=== PATIENT | male | born 1935 | race Caucasian/White ===

== ENCOUNTER 2017-05-29 06:34 | Observation (INO) | payer MEDICARE ==
[2017-05-29] MEDS ORDERED: Acetaminophen TAB* 325 MG PO ONE (06:55)
[2017-05-29] MEDS ORDERED: Ondansetron INJ* 2 MG/ML VIAL IV ONE (06:55)
[2017-05-29] MEDS ORDERED: Albuterol/Ipratropium NEB.SOL* Albuterol 2.5 MG/Ipratropium 0.5 MG 3 ML INH ONE (06:55)
[2017-05-29] MEDS ORDERED: NS 0.9% 1000 ML* 1,000 ML IV ONE (06:56)
--- NOTE | 2017-05-29 07:36 | ED ---
Sylvia Camarillo Nilda, scribed for Deepa Alexandre MD on 05/29/17 at 0701 . Respiratory - HPI Summary HPI Summary: This patient is an 82 year old M presenting to [facility] with a chief complaint of intermittent chest tightness and productive cough for the past 3 days that worsened today. The patient rates the pain 0/10 in severity. Patient reports nausea and fever. Symptoms aggravated by nothing and alleviated by 2 adult aspirin at 0530. Last BM was yesterday at 1300. - History of Current Complaint Chief Complaint: EDChestPainROMI Stated Complaint: CARDIAC ISSUE Hx Obtained From: Patient Onset/Duration: Sudden Onset, Lasting Days, Still Present Timing: Intermittent Episodes Lasting: Pain Intensity: 0 Character: Cough (Productive) Aggravating Factor(s): Nothing Alleviating Factor(s): OTC Medications - Allergy/Home Medications Allergies/Adverse Reactions: Allergies Allergy/AdvReac Type Severity Reaction Status Date / Time No Known Allergies Allergy Verified 05/29/17 06:52 PMH/Surg Hx/FS Hx/Imm Hx Endocrine/Hematology History: Reports: Hx Diabetes, Hx Anemia - SLIGHT STABLE ANEMIA Cardiovascular History: Reports: Hx Hypertension, 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 Denies: Hx Pacemaker/ICD GI History: Reports: Other GI Disorders - OCCASIONAL INDIGESTION History: Reports: Hx Kidney Stones - HX OF , Hx Renal Disease - ELAVATED CREATNINE AND BUN, Other Problems/Disorders - STATED SLIGHTLY ELEVATED BUT STABLE BUN AND CREATININE Musculoskeletal History: Reports: Other Musculoskeletal History - LEFT FOOT OSTEOMEYLITIS Sensory History: Reports: Hx Cataracts - HX OF, Hx Contacts or Glasses - GLASSES READING AND DRIVING Denies: Hx Hearing Aid Opthamlomology History: Reports: Hx Cataracts - HX OF, Hx Contacts or Glasses - GLASSES READING AND DRIVING Psychiatric History: Denies: Hx Panic Disorder - Cancer History Cancer Type, Location and Year: PROSTATE 2007 Hx Chemotherapy: - RADITION 35 [place] Hx Radiation Therapy: Yes - DONE - Surgical History Surgery Procedure, Year, and Place: YOUNG CHILD BOTH EYES. 2006 RT & LEFT FOOT BONE CHIPS, ABDIAZIZ. 2007 & 2011 CATARACT EXTRACTION BOTH EYES. 02/2012 LEFT FOOT OSTECTOMY Hx Anesthesia Reactions: No Infectious Disease History: No Infectious Disease History: Denies: Traveled Outside the [place] in Last 30 Days - Social History Lives: With Family Alcohol Use: Rare Alcohol Amount: 2 BEER/1 WINE DAILY Substance Use Type: Reports: None Smoking Status (MU): Former Smoker Type: Cigarettes Amount Used/How Often: 2 1/2 ppd Have You Smoked in the Last Year: No Review of Systems Positive: Fever Positive: Chest Pain - tightness Positive: Cough Positive: Nausea All Other Systems Reviewed And Are Negative: Yes Physical Exam - Summary Physical Exam Summary: VITAL SIGNS: Reviewed. GENERAL: Patient is a well-developed and nourished male who is lying comfortable in the stretcher. Patient is not in any acute respiratory distress. HEAD AND FACE: No signs of trauma. No ecchymosis, hematomas or skull depressions. No sinus tenderness. EYES: PERRLA, EOMI x 2, No injected conjunctiva, no nystagmus. EARS: Hearing grossly intact. Ear canals and tympanic membranes are within normal limits. MOUTH: Oropharynx within normal limits. NECK: Supple, trachea is midline, no adenopathy, no JVD, no carotid bruit, no c- spine tenderness, neck with full ROM. CHEST: Symmetric, no tenderness at palpation LUNGS: Clear to auscultation bilaterally. No wheezing or crackles. Decreased breath sounds bilat CVS: Regular rate and rhythm, S1 and S2 present, no murmurs or gallops appreciated. ABDOMEN: Soft, non-tender. (+) distention. No rebound no guarding, and no masses palpated. Bowel sounds are hyperactive. EXTREMITIES: FROM in all major joints, no edema, no cyanosis or clubbing. NEURO: Alert and oriented x 3. No acute neurological deficits. Speech is normal and follows commands. SKIN: Dry and warm Triage Information Reviewed: Yes Vital Signs On Initial Exam: Initial Vitals Temp Pulse Resp BP Pulse Ox 99.3 F 106 16 135/67 95 05/29/17 06:40 05/29/17 06:40 05/29/17 06:40 05/29/17 06:40 05/29/17 06:40 Vital Signs Reviewed: Yes Diagnostics - Vital Signs Vital Signs Temp Pulse Resp BP Pulse Ox 05/29/17 06:44 110 18 94 05/29/17 06:43 135/67 05/29/17 06:40 99.3 F 106 16 135/67 95 - Laboratory Lab Statement: Any lab studies that have been ordered have been reviewed, and results considered in the medical decision making process. - EKG 0654 Cardiac Rate: Tachycardia EKG Rhythm: Sinus Tachycardia - [address] Segment: Non-Specific - in inferior leads EKG Interpretation: 1st degree AV block Disposition - Course Assessment/Plan: 82 y/o Hx DM and HTN came here with difficulty breathing, left sided chest discomfort intermittently. Exam gilmore he has decreased breath sounds bilat and left BKA. Pt will be s/o to Dr. Parisi, pending dispo, awaiting cxr. - Diagnoses Provider Diagnoses: Chest pain Discharge - Sign-Out/Discharge Documenting (check all that apply): Sign-Out Patient - Pt will be s/o to Dr. Parisi, pending dispo, awaiting cxr. Signing out patient TO: Fab Parisi - Pt will be s/o to Dr. Parisi, pending dispo, awaiting cxr. - Discharge Plan Referrals: Pooja Kinney MD [Primary Care Provider] - The documentation as recorded by the Sylvia crockett Nilda accurately reflects the service I personally performed and the decisions made by , Deepa Alexandre MD.
[2017-05-29 07:47] LABS: ABS Basophils 0 10^3/ul (0-0.2); ABS Eosinophils 0 10^3/ul (0-0.6); ABS Lymphocytes 0.3 10^3/ul (1.0-4.8); ABS Monocytes 0.6 10^3/ul (0-0.8); ABS Neutrophils 5.7 10^3/ul (1.5-7.7); ABS Nucleated RBC 0 10^3/ul; Eosinophil % 0.2 % (0-6); Hematocrit 32 % (42-52); Hemoglobin 10.9 g/dl (14.0-18.0); Lymphocyte % 4.2 % (25-47); Mean Corpuscular HGB Conc 34 g/dl (31-36); Mean Corpuscular Hemoglobin 32 pg (27-31); Mean Corpuscular Volume 94 fL (80-94); Mean Platelet Volume 6.1 um3 (7.4-10.4); Nucleated Red Blood Cells % 0.1; Platelet Count 362 10^3/ul (150-450); Red Blood Count 3.44 10^6/ul (4.0-5.4); Red Cell Distribution Width 13 % (10.5-15); White Blood Count 6.6 10^3/ul (3.5-10.8)
--- NOTE | 2017-05-29 07:47 | RAD ---
HISTORY: Shortness of breath, left-sided chest pressure COMPARISONS: April 10, 2015 VIEWS: 1: frontal portable view of the chest at 7:22 AM FINDINGS: LINES AND TUBES: None. CARDIOMEDIASTINAL SILHOUETTE: The cardiomediastinal silhouette is normal for portable technique. PLEURA: The costophrenic angles are sharp. No pleural abnormalities are noted. LUNG PARENCHYMA: There is hyperinflation. ABDOMEN: The upper abdomen is clear. There is no subphrenic gas. BONES AND SOFT TISSUES: No bone or soft tissue abnormalities are noted. IMPRESSION: NO ACTIVE CARDIOPULMONARY DISEASE.
[2017-05-29 07:56] LABS: INR 1.08 (0.77-1.02)
[2017-05-29 08:03] LABS: Urine Appearance Cloudy; Urine Blood Negative (Negative); Urine Color Yellow; Urine Ketones 1+ (Negative); Urine Protein Negative (Negative); Urine Specific Gravity 1.019 (1.010-1.030); Urine Urobilinogen Negative (Negative)
[2017-05-29 08:04] LABS: EGFR Non-African American 43.4 (>60)
[2017-05-29] MEDS ORDERED: Iodixanol* (CONTRAST) 320 MG/ML 100 ML SDV IV ONE (08:15)
--- NOTE | 2017-05-29 08:52 | RAD ---
HISTORY: Elevated d-dimer, left-sided chest pain COMPARISONS: September 02, 2014 TECHNIQUE: Multiple contiguous axial CT scans of the chest were obtained after the administration of nonionic intravenous contrast, timed to the pulmonary arterial phase of contrast enhancement.. Coronal and sagittal multiplanar reformations are also submitted for review. FINDINGS: NECK AND THYROID: The lower neck and thyroid are unremarkable. CHEST WALL: There is no lower cervical, axillary, or supraclavicular lymphadenopathy by size criteria. HEART AND PERICARDIUM: Coronary and valvular cardiac calcifications are noted. AORTA AND PULMONARY VASCULATURE: There is no pulmonary arterial filling defect to suggest pulmonary embolism. There is no linear filling defect within the aorta to suggest aortic dissection. There is atherosclerosis of the thoracic aorta. MEDIASTINUM: There is no mediastinal lymphadenopathy by size criteria. KACY: There is no hilar lymphadenopathy by size criteria. AIRWAY AND ESOPHAGUS: The airway is unremarkable, without endobronchial filling defect. The esophagus is grossly normal. LUNG PARENCHYMA: There is minimal dependent atelectasis. PLEURA: There is trace right pleural effusion. UPPER ABDOMEN: The upper abdomen is unremarkable. BONES AND SOFT TISSUES: Degenerative changes are noted of the spine. OTHER: None. IMPRESSION: 1. NO PULMONARY ARTERIAL FILLING DEFECT TO SUGGEST PULMONARY EMBOLISM. 2. ATHEROSCLEROSIS. 3. TRACE RIGHT PLEURAL EFFUSION.
[2017-05-29] MEDS ORDERED: Nitroglycerin TAB 0.4 MG* 0.4 MG TAB SL ONE (09:12)
[2017-05-29] MEDS ORDERED: Dextrose 50% Syringe 50 ML* 25 GM/50 ML SYRINGE IV PUSH PRN (10:16)
[2017-05-29] MEDS ORDERED: Al Hydrox/Mg Hydrox/Simet LIQ* 30 ML UDC PO PRN (10:19)
[2017-05-29] MEDS ORDERED: Ondansetron INJ* 2 MG/ML VIAL IV PRN (10:19)
[2017-05-29] MEDS ORDERED: NS 0.9% 1000 ML* 1,000 ML IV SCH (10:30)
[2017-05-29] MEDS: Insulin LISPRO* 1 UNITS UNIT SUBCUT SCH ×3 (12:30→20:20)
[2017-05-29] MEDS: Metoprolol Tartrate TAB* 50 mg PO SCH ×2 (12:30→20:20)
--- NOTE | 2017-05-29 13:14 | HP ---
CC: Dr. Kinney * HISTORY AND PHYSICAL: DATE OF ADMISSION: 05/29/17 PRIMARY CARE PROVIDER: Dr. Kinney. CHIEF COMPLAINT: Chest pressure. HISTORY OF PRESENT ILLNESS: Mr. Wells is an 82-year-old male with history of diabetes, diabetic retinopathy and Charcot foot deformation bilaterally, status post left [id number] amputation in 2016, who presented to the hospital complaining of nausea that started 3 days ago with subsequent sensation of fullness in the left side of his chest and chest pressure. The patient also stated that occasionally he would spit up "phlegm," but denies cough. He denies muscle aches or fevers. He denies shortness of breath. Currently, he still has a sensation of fullness in the left side of his chest. He was somewhat nauseated when he came into the emergency department and that was treated with Zofran with good results. His CT angiogram of the chest was unremarkable apart from atelectatic area. He is going to be placed on observation with a diagnosis of chest pain. PAST MEDICAL HISTORY: 1. History of ascending aortic aneurysm. 2. History of left diabetic foot ulcer with Charcot foot deformation and osteomyelitis, status post left BKA in 2016. 3. Cardiomyopathy with last EF documented at 60%. 4. History of chronic kidney disease stage 3 due to diabetes. 5. History of diabetic neuropathy, retinopathy, and nephropathy. 6. Diabetes type 2. 7. Gastroesophageal reflux disease. 8. Hypertension. 9. Prostate cancer, treated with radiation. 10. History of eye surgery at the age of 35 years old. 11. History of multiple left foot surgeries in 2016 with left BKA. 12. Bilateral cataract surgery bilaterally. MEDICATIONS: Include, 1. Glipizide 2.5 mg daily. 2. Amlodipine 2.5 mg daily. 3. Hytrin or terazosin 5 mg at bedtime. 4. Multivitamin one tablet daily. 5. Metoprolol tartrate 50 mg b.i.d. 6. Vitamin C 1000 mg daily. ALLERGIES: No known drug allergies. FAMILY HISTORY: Positive for father with lung cancer, mother who at age of 35 secondary to brain aneurysm. SOCIAL HISTORY: The patient quit smoking in the with a history of 70-pack - year smoking. He drinks an occasional glass of wine with dinner. He lives with his who would be his surrogate and in case his was unable to do that, his daughter will take over. REVIEW OF SYSTEMS: Please see history of present illness. In addition to the above mentioned, the patient stated that he had several episodes of nausea couple of weeks prior that resolved spontaneously. Since his nausea episode 3 days ago, he stated that he did not really vomit, but he continued "spitting phlegm." He has not been eating well due to that. His bowels have been moving regularly and he denies any abdominal pain. All the remaining 12 systems were reviewed with the patient and were otherwise negative. PHYSICAL EXAMINATION GENERAL: The patient is a very pleasant 82-year-old male who is in no acute distress. Alert, awake, and oriented x3. VITAL SIGNS: Blood pressure of 101/70, heart rate of 89 and regular, respiratory rate 11, oxygen saturation 91% on room air, temperature of 99.3. HEENT: Head is atraumatic, normocephalic. Eyes: Pupils equal and reactive to light and accommodation. Oropharynx clear. Mucosa moist. NECK: Supple. No JVD. No bruits bilaterally. RESPIRATORY: Faint crackles at bilateral bases, otherwise clear. CARDIOVASCULAR: Regular rate and rhythm. No murmur. ABDOMEN: Soft, nontender. Bowel sounds present in all 4 quadrants. EXTREMITIES: There is no edema. Pulses are +2 bilaterally. There is no clubbing or cyanosis. The patient is status post left BKA with the prosthesis in place at this point. The patient was not interested in taking the prosthesis off during my evaluation, he stated that he has "a small sore" on the tip of his stump. NEUROLOGIC: Speech clear. Cranial nerves II through XII grossly intact. Motor strength is 5/5 bilaterally. SKIN: No ecchymotic areas or rashes noted. DIAGNOSTIC STUDIES/LAB DATA: White blood cell count of 6.6, hemoglobin 10.9, hematocrit of 32, and platelets of 362. The patient's anemia is chronic. Sodium is 135, potassium 4.2, chloride 105, carbon dioxide 20, BUN 22, creatinine 1.55 which is the patient's baseline. Liver function tests were unremarkable. C- reactive protein of 75.4. Troponin of 0.03. Urinalysis grossly unremarkable apart from trace ketones. CT angiogram of the chest obtained today, impression: "No pulmonary artery filling defect to suggest pulmonary embolism. Atherosclerosis. Trace right pleural effusion." The patient's EKG shows sinus tachycardia with heart rate of 101 beats per minute, likely old anteroseptal infarct. Changes slightly progressed from prior. The patient's P-wave also appears to be biphasic especially in V1 to V3. There were no acute ST changes. ASSESSMENT AND PLAN: 1. In regards to the patient's chest pressure, it appears to be related to GI symptoms. The patient may have gastroparesis since he is diabetic with diabetic nephropathy, neuropathy, and retinopathy. Nevertheless, he is also vasculopath and he is going to be observed on telemetry monitored bed with cardiac stress test in the morning. Of note, the patient requested to be placed on regular diet, but he is going to be placed on no caffeine in order to undergo stress test in the morning. We will follow up with troponins throughout his hospital stay. 2. In regards to the patient's diabetic management, the patient is going to be placed on insulin sliding scale. His glipizide is going to be held. 3. In regards to the patient's hypertension, he is going to be continued on metoprolol. 4. The patient appears slightly dehydrated. He already received a liter of intravenous fluid in the emergency department. For the time being, I will continue gentle hydration for another liter and then stop. 5. The patient's code status is full and his surrogate is his and his daughter. 6. For DVT prophylaxis, the patient is going to be placed on heparin subcutaneously. TIME SPENT: Approximately 62 minutes was spent on admission of this patient, more than half that time was spent [id number] with the patient during the interview and physical exam. [id number]/[facility] #: [id number] [facility] SERVIC[facility]ont[facility]errat
[2017-05-29] MEDS: Heparin VIAL(*) 5000 UNITS/ML VIAL (FIVE THOUSAND) SUBCUT SCH ×2 (15:19→21:05)
[2017-05-29] MEDS ORDERED: Terazosin CAP* 5 MG PO SCH (21:00)
[2017-05-30 06:14] LABS: ABS Basophils 0 10^3/ul (0-0.2); ABS Eosinophils 0.1 10^3/ul (0-0.6); ABS Lymphocytes 0.8 10^3/ul (1.0-4.8); ABS Monocytes 0.8 10^3/ul (0-0.8); ABS Neutrophils 4.5 10^3/ul (1.5-7.7); ABS Nucleated RBC 0 10^3/ul; Eosinophil % 1.2 % (0-6); Hematocrit 30 % (42-52); Hemoglobin 10.4 g/dl (14.0-18.0); Lymphocyte % 12.7 % (25-47); Mean Corpuscular HGB Conc 34 g/dl (31-36); Mean Corpuscular Hemoglobin 32 pg (27-31); Mean Corpuscular Volume 94 fL (80-94); Mean Platelet Volume 6.1 um3 (7.4-10.4); Nucleated Red Blood Cells % 0; Platelet Count 342 10^3/ul (150-450); Red Blood Count 3.23 10^6/ul (4.0-5.4); Red Cell Distribution Width 13 % (10.5-15); White Blood Count 6.3 10^3/ul (3.5-10.8)
[2017-05-30] MEDS: Heparin VIAL(*) 5000 UNITS/ML VIAL (FIVE THOUSAND) SUBCUT SCH (06:14)
[2017-05-30 06:29] LABS: EGFR Non-African American 42.7 (>60)
[2017-05-30] MEDS: Insulin LISPRO* 1 UNITS UNIT SUBCUT SCH (08:48)
[2017-05-30] MEDS: Metoprolol Tartrate TAB* 50 mg PO SCH (08:54)
[2017-05-30] MEDS ORDERED: amLODIPine TAB* 5 MG PO SCH (09:00)
[2017-05-30] MEDS ORDERED: Ascorbic Acid TAB* 500 MG PO SCH (09:00)
[2017-05-30 09:26] VITALS: BP 156/73
[2017-05-30] MEDS ORDERED: Regadenoson* 0.4 MG/5 ML SYRINGE ONE (10:07)
--- NOTE | 2017-05-30 11:29 | RAD ---
HISTORY: Chest pain, diabetes, hypertension COMPARISONS: May 06, 2006 TECHNIQUE: A 1 day stress/rest myocardial perfusion study was performed, with pharmacologic stress. The stress portion was monitored by Dr. Laureano. Gated SPECT imaging was performed, without CT-based attenuation correction secondary to patient physical limitation DOSE: Stress: Technetium 99m tetrofosmin, 25.2 millicuries, injected at 10:20 AM on May 30, 2017 Rest: Technetium 99m tetrofosmin, 10.3 millicuries, injected at 6:45 AM on May 30, 2017 Pharmacologic agent: Lexiscan FINDINGS: CARDIAC MONITORING: No ST changes with stress EF: 51% TID: 0.8 MOTION: Normal motion, with normal wall thickening. PERFUSION: On the polar maps, there is a small focus of reversible perfusion along the lateral wall towards the apex. OTHER: None IMPRESSION: SMALL FOCUS OF REVERSIBLE DIFFUSION ALONG THE LATERAL WALL TOWARDS THE APEX WHICH MAY REFLECT A SMALL AREA OF ISCHEMIA. ASSESSMENT: LOW RISK. Based on imaging criteria from ACC/AHA 2002. Guideline Update for the Management of Patient's with Chronic Stable Angina, table 23. Noninvasive Risk Stratification. CPT II Codes: 3570F
[2017-05-30] MEDS ORDERED: glipiZIDE TAB* 5 MG PO ONE (12:25)
--- NOTE | 2017-05-30 23:00 | DS ---
CC: Dr. Kinney DISCHARGE SUMMARY: DATE OF ADMISSION: 05/29/17 DATE OF DISCHARGE: 05/30/17 PRIMARY CARE PROVIDER: Dr. Kinney. DISCHARGE DIAGNOSIS: Chest pain likely GI related. SECONDARY DIAGNOSES: 1. History of diabetes type 2. 2. Status post BKA due to osteomyelitis in the left foot. 3. History of ascending aortic aneurysm. 4. History of cardiomyopathy in the past with EF in 2007 documented at 45%. 5. History of chronic kidney disease, stage 3 due to diabetes. 6. History of diabetic neuropathy, retinopathy, and nephropathy. 7. Gastroesophageal reflux disease. 8. Hypertension. 9. Prostate cancer, treated with radiation. 10. History of multiple left foot surgeries. 11. Bilateral cataract surgery. MEDICATIONS AT DISCHARGE: Include: 1. Glipizide 2.5 mg daily. 2. Amlodipine 2.5 mg daily. 3. Terazosin 5 mg at bedtime. 4. Multivitamin 1 tablet daily. 5. Metoprolol tartrate 50 mg b.i.d. 6. Vitamin C 1000 mg daily. STUDIES PERFORMED DURING THE HOSPITAL STAY WELL LABORATORY DATA: Included: On 05/30/17, sodium of 136, potassium 4.2, chloride 105, carbon dioxide 23, BUN 20, creatinine 1.57. CBC: White blood cell count of 6.3, hemoglobin 10.4, hematocrit 30, and platelets of 342. CT angiogram of the chest obtained on 05/29/17, impression: "No pulmonary arterial filling defect to suggest pulmonary embolism. Atherosclerosis. Trace right pleural effusion." The patient had a chemical cardiac stress test performed on 05/30/17. The nuclear portion showed low risk. It also showed a small focus of reversible diffusion along the lateral wall, which may reflec t the small area of ischemia. The EF was noted to be 51%. Of note, the patient had a similar latera l wall reversible defect noted in 2007 during his stress test. Please also note that in 2006, the josé miguel galvan's EF was noted to be 45 and today it increased to 51. HOSPITALIZATION COURSE: Carlos Wells is an 82-year-old male with history of diabetes with complica tions, status post left BKA due to chronic osteomyelitis of the left foot, who presented to the [facility] with vague complaints of nausea and left-sided chest pressure. The patient's troponins continued to be negative throughout his hospital stay. His discomfort was much improved after he had 2 bowel movements in the hospital. His stress test was basically unchanged from his stress test in 2007, whi ch showed low risk, but small area of potential reversibility in the lateral wall. The patient's EF improved to 51% today from 2007, where it was 45. At discharge, the patient is going to be following up with his primary care provider, Dr. Kinney, and he recommended to do it in approximately 4 to 7 days. PHYSICAL EXAMINATION AT DISCHARGE: Unchanged from admission. [id number]/[facility] #: [id number]
--- NOTE | 2017-05-31 03:23 | DS ---
DISCHARGE SUMMARY: ADDENDUM: Shortly after the patient left the hospital, I was notified by the microbiology lab that the patient's blood cultures that were obtained by the ED physician were positive for MSSA in 2/2 bottles. Please note that during his hospital stay, the patient was afebrile, had no evidence of leukocytosis and did not have any symptoms of ongoing infection. He did say that he had a "sore " on his left lower extremity stump, but he did not wish to take his prosthesis off for me to evaluate it. I called the patient and I discussed with him and requested for him to come back to the hospital for direct admission for further investigation and treatment of MSSA bacteremia. I did discuss with the patient that the possibility of having a heart infection or joint infection in conjunction with his bacteremia is high and that would require further investigation, IV antibiotics and infectious disease consult. The patient stated that he really does not like to be in the hospital, got very upset and stated that he will not come back to the hospital even if it is dangerous to his life to not comply with my request. Subsequently, I spoke with Dr. Guerra who knows Mr. Wells from previous hospital stay in 2015 when the patient was treated for osteomyelitis. Dr. Guerra recommended linezolid treatment and the patient was prescribed linezolid 600 mg b.i.d. for a total of 14 days with 1 refill. I also encouraged Mr. Wells to call Dr. Guerra's office on Friday and Dr. Guerra likely will have an appointment for him within the next several days scheduled. I did urge the patient to come back to the hospital if he develops fevers, feels unwell or has any other new symptoms that are concerning. Please also note that cable splicing technician notified me that the lab already called Dr. Kinney and informed her service about the positive blood cultures. [id number]/[facility] #: [id number] [facility]ITALMontserrat
== END 2017-05-30 14:12 | disposition home or self-care (01) ==
LOC: ED 06:34 → MEDTELE 09:33
PROVIDERS: ADMIT Internal Medicine; ATTEND Internal Medicine
DX: R07.9 Chest pain, unspecified (principal); R50.9 Fever, unspecified; R11.0 Nausea; Z87.891 Personal history of nicotine dependence; E11.9 Type 2 diabetes mellitus without complications; Z89.519 Acquired absence of unspecified leg below knee; I71.2 Thoracic aortic aneurysm, without rupture; Z86.79 Personal history of other diseases of the circulatory system; N18.3 Chronic kidney disease, stage 3 (moderate); I10 Essential (primary) hypertension; C61 Malignant neoplasm of prostate; Z98.49 Cataract extraction status, unspecified eye
CPT/HCPCS: 36415; 71045; 71275; 78452; 80048; 80053; 81003; 83605; 84484; 85025; 85379; 85610; 85730; 86140; 87040; 87077; 87150; 87186; 87205; 87502; 93005; 93017; 94640; 99283; A9270-GY; A9502; G0378; J2405; J2785; Q9967

== ENCOUNTER 2017-12-12 09:48 | Inpatient (IN) | payer MEDICARE ==
--- NOTE | 2017-12-12 10:46 | ED ---
Lower Extremity - HPI Summary HPI Summary: Patient is a 82 y/o M w/ c/o RLE pain and edema. He reports that three weeks ago , he slipped on a wet spot in his driveway and experienced mild right ankle pain. Patient has a left below-knee amputation. He states that the pain lessened slightly after the incident. This morning, patient reports that he awoke with increased pain. He states that he went to take a bath this morning, went to get out and experienced severe right lower leg pain from ankle to calf after bearing weight on this leg. Edema is also noted at this area. Fever, chills, nausea are denied. Prior to this, patient claims he was walking "just fine". He denies any other recent injuries, Hx of blood clot in legs, lungs, CHF , or VA. PMHx of diabetes and HTN, patient takes gliclazide 2.5 mg daily as well as BP medications. 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 On triage, pain is rated 3/10, walking aggravates pain, nothing is noted to alleviate Sx, and patient had bandages on right foot from where his shoe was rubbing against the foot as it was swelling. Home medications and allergies are reviewed. - History of Current Complaint Chief Complaint: EDExtremityLower Stated Complaint: PAIN IN RIGHT ANKLE Hx Obtained From: Patient Onset of Pain: Hours - present Sx onset this morning, Days - reports pain after slipping on wet spot three weeks ago, Post Accident, Prior to Arrival Onset/Duration: Still Present - slipped on wet spot three weeks ago, worse since this morning Severity Currently: Mild - 3/10 Pain Intensity: 3 Pain Scale Used: 0-10 Numeric - 3/10 Timing: Constant, Lasting Hours - present Sx onset this morning, Lasting Weeks - patient slipped on wet spot three weeks ago Location: Is Discrete @ - RLE Associated Signs And Symptoms: Positive: Other - NEGATIVE: chills, nausea. 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 VALENCIA DRSICOLL Denies: Hx Pacemaker/ICD GI History: Reports: Other GI Disorders - OCCASIONAL INDIGESTION History: Reports: Hx Kidney Stones - HX OF , Hx Renal Disease - ELAVATED CREATNINE AND BUN, Other Problems/Disorders - STATED SLIGHTLY ELEVATED BUT STABLE BUN AND CREATININE Musculoskeletal History: Reports: Other Musculoskeletal History - LEFT FOOT OSTEOMEYLITIS Sensory History: Reports: Hx Cataracts - HX OF, Hx Contacts or Glasses - Reading glasses. Denies: Hx Hearing Aid Opthamlomology History: Reports: Hx Cataracts - HX OF, Hx Contacts or Glasses - Reading glasses. Psychiatric History: Denies: Hx Panic Disorder - Cancer History Cancer Type, Location and Year: PROSTATE 2006 Hx Chemotherapy: - RADITION 35 [place] Hx Radiation Therapy: Yes - DONE - Surgical History Surgery Procedure, Year, and Place: YOUNG CHILD BOTH EYES. 2006 RT & LEFT FOOT BONE CHIPS, ABDIAZIZ. 2007 & 2011 CATARACT EXTRACTION BOTH EYES. 02/2012 LEFT FOOT OSTECTOMY Hx Anesthesia Reactions: No Infectious Disease History: No Infectious Disease History: Denies: Traveled Outside the [place] in Last 30 Days - Family History Known Family History: Positive: Other - FMHx of malignant neoplasm of trachea, bronc and lung - Social History Alcohol Use: None Alcohol Amount: 2 BEER/1 WINE DAILY Substance Use Type: Reports: None Smoking Status (MU): Former Smoker Type: Cigarettes Amount Used/How Often: 2 1/2 ppd Have You Smoked in the Last Year: No Review of Systems Negative: Fever, Chills Negative: Nausea Positive: Edema - RLE , Other - RLE pain All Other Systems Reviewed And Are Negative: Yes Physical Exam - Summary Physical Exam Summary: GENERAL: Patient is a well-developed and nourished male who is lying comfortable in the stretcher. Patient is not in any acute respiratory distress. HEAD AND FACE: Normocephalic EYES: PERRLA, EOMI x 2. EARS: Hearing grossly intact. MOUTH: Oropharynx within normal limits. NECK: Supple, trachea is midline, no adenopathy, no JVD, no carotid bruit. CHEST: Symmetric, no tenderness at palpation LUNGS: Clear to auscultation bilaterally. No wheezing or crackles. CVS: Regular rate and rhythm, S1 and S2 present, no murmurs or gallops appreciated. ABDOMEN: Soft, non-tender. Bowel sounds are normal. No abdominal abnormal pulsations. EXTREMITIES: Full ROM in all major joints, no cyanosis or clubbing. Ulcer on right foot, lateral aspect of the first toe, 1+ pitting edema, tenderness to palpation at distal right lower extremity. Right lower rotation of the foot which patient notes has been present for eleven years. NEURO: Alert and oriented x 3. No acute neurological deficits. Speech is normal and follows commands. SKIN: Dry and warm Triage Information Reviewed: Yes Vital Signs On Initial Exam: Initial Vitals Temp Pulse Resp BP Pulse Ox 98.0 F 64 18 146/70 99 12/12/17 09:51 12/12/17 09:51 12/12/17 09:51 12/12/17 09:51 12/12/17 09:51 Vital Signs Reviewed: Yes Diagnostics - Vital Signs Vital Signs Temp Pulse Resp BP Pulse Ox 12/12/17 09:51 98.0 F 64 18 146/70 99 - Laboratory Result Diagrams: 12/12/17 12:27 12/12/17 12:27 Lab Statement: Any lab studies that have been ordered have been reviewed, and results considered in the medical decision making process. - Radiology right lower leg xray Xray Interpretation: Positive (See Comments) Radiology Interpretation Completed By: Radiologist - IMPRESSION: 1. DISPLACED FRACTURE INVOLVING THE RIGHT DISTAL TIBIA AND FIBULA DESCRIBED ABOVE. 2. INCIDENTALLY NOTED IS ADVANCED CALCIFIED ATHEROSCLEROSIS OF THE VISUALIZED RIGHT LOWER ACTIVITY ARTERIES. THIS REPORT WAS REVIEWED BY ED PHYSICIAN right foot x-ray Xray Interpretation: Positive (See Comments) Radiology Interpretation Completed By: Radiologist - IMPRESSION: 1. DISPLACED FRACTURE INVOLVING THE RIGHT DISTAL TIBIA AND FIBULA DESCRIBED ABOVE. 2. INCIDENTALLY NOTED IS ADVANCED CALCIFIED ATHEROSCLEROSIS OF THE VISUALIZED RIGHT LOWER ACTIVITY ARTERIES. THIS REPORT WAS REVIEWED BY ED PHYSICIAN. CXR Xray Interpretation: No Acute Changes Radiology Interpretation Completed By: Radiologist - no active cardiopulmonary disease is noted, this report was reviewed by ed physician right ankle x-ray Xray Interpretation: Positive (See Comments) Radiology Interpretation Completed By: Radiologist - distal right tibia and fibular fracture with apparent disruption of the ankle more T's, this report was reviewd by ed physician. - CT RLE CT CT Interpretation: Positive (See Comments) CT Interpretation Completed By: Radiologist - comminuted fracture of the distal tibia with overriding of the fracture fragments with a large medial fragment and posterior fragment, this report was reviewed by ed physician. - EKG 1454 Cardiac Rate: Tachycardia - rate of 108 BPM EKG Rhythm: Sinus Tachycardia EKG Interpretation: Q-waves in anterior leads Re-Evaluation - Re-Evaluation First Eval Re-Evaluation Time: 11:48 Comment: Patient's x-rays were discussed. Possibility of admission is discussed , patient would prefer to be worked up as an out patient. Second Eval Re-Evaluation Time: 12:06 Comment: Patient wants to discuss fracture location further, this was done. Third Eval Re-Evaluation Time: 12:18 Comment: Consult with Sean was discussed, patient is agreeable with scans and surgery if needed. Fourth Eval Re-Evaluation Time: 13:10 Comment: Patient refuses EKG at this time stating nothing is wrong with his heart. Fifth Eval Re-Evaluation Time: 13:48 Comment: Patient ate food despite being NPO for possible surgery later today. He states he was hungry. Sixth + Eval Re-Evaluation Time: 14:54 Comment: Patient is agreeable with EKG which showed sinus tachycardia, q-waves in anterior leads. Patient is agreeable with admission at the time. Lower Extremity Course/Dx - Course Course Of Treatment: Patient is a 82 y/o M w/ c/o RLE pain and edema. He reports that three weeks ago, he slipped on a wet spot in his driveway and experienced mild right ankle pain. Patient has a left below-knee amputation. He states that the pain lessened slightly after the incident. This morning, patient reports that he awoke with increased pain. He states that he went to take a bath this morning, went to get out and experienced severe right lower leg pain from ankle to calf after bearing weight on this leg. Edema is also noted at this area. Fever, chills, nausea are denied. Prior to this, patient claims he was walking "just fine". He denies any other recent injuries, Hx of blood clot in legs, lungs, CHF, or VA. PMHx of diabetes and HTN, patient takes gliclazide 2.5 mg daily as well as BP medications. 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 Physical exam shows ulcer on right foot, lateral aspect of the first toe, 1+ pitting edema, tenderness to palpation at distal right lower extremity. Right lower rotation of the foot which patient notes has been present for eleven years. Right foot and RLE x-rays IMPRESSION: 1. DISPLACED FRACTURE INVOLVING THE RIGHT DISTAL TIBIA AND FIBULA DESCRIBED ABOVE. 2. INCIDENTALLY NOTED IS ADVANCED CALCIFIED ATHEROSCLEROSIS OF THE VISUALIZED RIGHT LOWER ACTIVITY ARTERIES. Patient's case was discussed with Dr. Estrada at 1211, he recommends further scans and is considering possiblity of surgery for plate placement. 1225 - Dr. Suh called, he is aware of patient and wants to consult on case. CXR shows no active cardiopulmonary disease. Right ankle x-ray showed distal right tibia and fibular fracture with apparent disruption of the ankle more T's. RLE CT showed comminuted fracture of the distal tibia with overriding of the fracture fragments with a large medial fragment and posterior fragment. Labs showed WBC 9.7, BUN 25, creatinine 1.69, RBC 3.98, Hgb 12.5, Hct 37, MCH 32, glucose 117, lactic acid 0.7, CK-MB 2.3, trop 0.01, blood type A negative, antibody screen negative. Patient refused EKG stating nothing is wrong with his heart. 1300 - Dr. Estrada in room to evaluate patient. 1331 - Dr. Suh is agreeable with Dr. Estrada handling care of patient. Dr. Estrada recommends admission of patient to admit to hospital. 1348 - Patient ate food despite being NPO for possible surgery later today. He states he was hungry. 1440 - Dr. Burleson accepts for admission. 1454 - Patient is agreeable with EKG which showed sinus tachycardia, q-waves in anterior leads. Patient is agreeable with admission at the time. Dx of right ankle fracture. - Diagnoses Provider Diagnoses: Ankle fracture, right - Physician Notifications Discussed Care Of Patient With: Faraz Estrada Time Discussed With Above Provider: 12:11 Instructed by Provider To: Other - Patient's case was discussed with Dr. Estrada at 1211, he recommends further scans and is considering possiblity of surgery for plate placement. 1225 - Dr. Suh called, he is aware of patient and wants to consult on case. 1300 - Dr. Estrada in room to evaluate patient. 1331 - Dr. Suh is agreeable with Dr. Estrada handling care of patient. Dr. Estrada recommends admission of patient to admit to hospital. 1430 - Dr. Estrada in room to talk to patient further. Discharge - Sign-Out/Discharge Documenting (check all that apply): Patient Departure - admit All imaging exams completed and their final reports reviewed: Yes - Discharge Plan Condition: Good Disposition: ADMITTED TO [facility] - Billing Disposition and Condition Condition: GOOD Disposition: Admitted to [facility] - Attestation Statements Document Initiated by Bertrande: Yes Documenting Scribe: Leeroy Donald Provider For Whom Daisy is Documenting (Include Credential): Pedro Chaney MD Scribe Attestation: Leeroy Camarillo , scribed for Pedro Chaney MD on 12/12/17 at 2102. Scribe Documentation Reviewed: Yes Provider Attestation: The documentation as recorded by the scribeLeeroy accurately reflects the service I personally performed and the decisions made by me, Pedro Chaney MD
--- NOTE | 2017-12-12 11:31 | RAD ---
INDICATION: Atraumatic pain of the right lower leg and foot COMPARISON: None. TECHNIQUE: 4 views of the right lower leg and 3 views of the right foot were obtained. FINDINGS: There is a minimally displaced and impacted fracture at the distal tibia and fibula on the right. On the lateral view there is approximately 27 degrees of anterior angulation. The ankle more T's appears asymmetrically widened laterally and superiorly. The right knee appears to be appropriately aligned in the AP and lateral projections. Advanced degenerative changes are noted at the tarsometatarsal joints with sclerotic bony remodeling and what appears to be valgus deformity. Also incidentally noted is advanced calcified atherosclerosis of the distal popliteal artery and infrapopliteal arteries. IMPRESSION: 1. DISPLACED FRACTURE INVOLVING THE RIGHT DISTAL TIBIA AND FIBULA DESCRIBED ABOVE. 2. INCIDENTALLY NOTED IS ADVANCED CALCIFIED ATHEROSCLEROSIS OF THE VISUALIZED RIGHT LOWER ACTIVITY ARTERIES.
[2017-12-12 12:52] LABS: ABS Basophils 0 10^3/ul (0-0.2); ABS Eosinophils 0.1 10^3/ul (0-0.6); ABS Lymphocytes 0.8 10^3/ul (1.0-4.8); ABS Monocytes 0.7 10^3/ul (0-0.8); ABS Neutrophils 8.1 10^3/ul (1.5-7.7); ABS Nucleated RBC 0 10^3/ul; Eosinophil % 0.7 % (0-6); Hematocrit 37 % (42-52); Hemoglobin 12.5 g/dl (14.0-18.0); Lymphocyte % 8.4 % (25-47); Mean Corpuscular HGB Conc 34 g/dl (31-36); Mean Corpuscular Hemoglobin 32 pg (27-31); Mean Corpuscular Volume 93 fL (80-94); Mean Platelet Volume 6.5 um3 (7.4-10.4); Nucleated Red Blood Cells % 0.1; Platelet Count 325 10^3/ul (150-450); Red Blood Count 3.98 10^6/ul (4.00-5.40); Red Cell Distribution Width 14 % (10.5-15); White Blood Count 9.7 10^3/ul (3.5-10.8)
[2017-12-12 12:59] LABS: EGFR Non-African American 39.2 (>60)
[2017-12-12 13:01] LABS: INR 0.99 (0.77-1.02)
--- NOTE | 2017-12-12 13:07 | RAD ---
INDICATION: Right ankle pain COMPARISON: Same day radiograph of the right foot and lower leg TECHNIQUE: 3 views of the right ankle were obtained. FINDINGS: Again seen is a comminuted fracture at the distal right tibia just above the tibial malleolus. There is approximately 25 to 30 degrees of anterior angulation at the fracture site. There is a minimally displaced fracture at the fibular malleolus as well. There is asymmetric widening of the ankle more T's laterally and superiorly. The remaining visualized bones appear to be intact and appropriately aligned. IMPRESSION: DISTAL RIGHT TIBIA AND FIBULAR FRACTURE WITH APPARENT DISRUPTION OF THE ANKLE MORE T'S.
--- NOTE | 2017-12-12 13:08 | RAD ---
Indication: Preop for ankle fracture Single view of the chest and shape no mediastinal shift. Heart is of normal size and configuration. Lung garcia demonstrate no pleural fluid, pneumonia or pneumothorax. Overall no changes noted since May 29, 2017 IMPRESSION: No active cardiopulmonary disease is noted.
--- NOTE | 2017-12-12 13:22 | RAD ---
Indication: Right ankle fracture CT of the right ankle was obtained in the axial plane. Sagittal and coronal reconstructed images were obtained. There is a comminuted fracture of the distal tibia. An oblique fracture line extends from the medial tibial plafond extending to the medial cortex of the left kidney which appears to be a main fracture fragment. There is an additional main fracture fragment involving the posterior malleolus with overriding of the fracture fragments of the tibia through the 2 other major fracture fragments. Additionally there is oblique fracture of the distal fibula is also noted. The talus is intact. The calcaneus is grossly there are degenerative changes between the cuneiforms metatarsal joints. IMPRESSION: Comminuted fracture of the distal tibia with overriding of the fracture fragments with a large medial fragment and posterior fragment. Fracture of the distal fibula is also noted.
[2017-12-12] MEDS ORDERED: Heparin VIAL(*) 5000 UNITS/ML VIAL (FIVE THOUSAND) SUBCUT ONE (20:00)
--- NOTE | 2017-12-12 20:00 | HP ---
CC: Dr. Kinney * [facility] MEDICINE HISTORY AND PHYSICAL: DATE OF ADMISSION: 12/12/17 PRIMARY CARE PROVIDER: Dr. Kinney. ATTENDING PHYSICIAN: Dr. Alvaro Burleson * (dictation provided by Felecia David NP). CHIEF COMPLAINT: Right ankle pain. HISTORY OF PRESENT ILLNESS: Mr. Wells is an 82-year-old male with a past medical history of diabetes; left below knee amputation for osteomyelitis; ascending aortic aneurysm; cardiomyopathy with ejection fraction of 45%; CKD, stage 3, who presents today to the hospital with concern for right ankle pain. Mr. Wells states he was in his normal state of health when about 2.5 to 3 weeks ago, he fell on some slippery grass. He had some mild pain to his right ankle, but was able to ambulate routinely. Today, he suddenly developed much more severe pain in the right ankle. He denies any new acute trauma to the ankle or fall. He presented to the emergency room for evaluation. He denies any other acute complaints. He has had no chest pain, shortness of breath, nausea, vomiting, diarrhea, abdominal pain. He states that despite having a left below knee amputation that he is still very active. He is even in this 2- week period been able to easily ambulate up and down stairs, and denied chest pain or shortness of breath with this level of activity. In the emergency room, Mr. Wells had x-rays that show that he had a right distal tibia and fibula fractures. PAST MEDICAL HISTORY: 1. Type 2 diabetes, [id number], with associated CKD, stage 3; diabetic neuropathy; diabetic retinopathy; diabetic nephropathy. 2. Hypertension. 3. Left below knee amputation. 4. Ascending aortic aneurysm. 5. Cardiomyopathy with ejection fraction of 45%. 6. GERD. 7. Hypertension. 8. Prostate cancer, status post radiation. 9. Bilateral cataract surgery. MEDICATIONS: Outpatient are: 1. Vitamin C 1000 mg p.o. q.a.m. 2. Terazosin 5 mg p.o. at bedtime. 3. Multivitamin with mineral 1 tab p.o. daily. 4. Metoprolol tartrate 50 mg p.o. b.i.d. 5. Glipizide 2.5 mg p.o. q.a.m. 6. Amlodipine 2.5 mg p.o. q.a.m. ALLERGIES: No known drug allergies. FAMILY HISTORY: The patient's father had lung cancer, mother at age 35 related to brain aneurysm. SOCIAL HISTORY: No report of alcohol, tobacco, or drug use. The patient lives with his . I spoke to him about his healthcare proxy and he states that Dr. Kinney will be the healthcare proxy, I am not sure that he understood the description of the healthcare proxy's role, but he was unwilling to discuss it further. PHYSICAL EXAMINATION GENERAL: Mr. Wells is sitting in the wheelchair, his is at the bedside. VITAL SIGNS: Temperature 97.6, pulse rate 84, respiratory rate 16, O2 saturation 99% on room air, and blood pressure 129/79. LUNGS: Clear to auscultation bilaterally with no accessory muscle use and good aeration. HEART: S1, S2. No murmur, rub, or gallop and regular. ABDOMEN: Soft, nontender with bowel sounds positive x4. EXTREMITIES: No cyanosis. Some mild edema in the right lower leg. 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 He has a skin tear at the site of callus on the base of the first toe. There is no erythema or drainage. The patient states that this has been there for several weeks. NEURO: He is alert, he is oriented x3, he moves all extremities equally. There is no facial asymmetry or focal weakness. Extraocular movements are intact. DIAGNOSTIC STUDIES/LAB DATA: Sodium 136, potassium 4.4, chloride 102, serum bicarbonate 25, BUN 25, creatinine 1.69, glucose 117, lactic acid 0.7. WBC 9.7 , hemoglobin 12.5, hematocrit 37, platelet count 325. INR is 0.99. The patient had multiple foot and ankle x-rays, and lower extremity CT provides the best data and shows "comminuted fracture of the distal tibia with overriding of the fracture fragments with a large medial fragment and posterior fragments." ASSESSMENT: Mr. Wells is an 82-year-old male with past medical history of diabetes that is [id number] with associated chronic kidney disease, neuropathy, retinopathy, nephropathy, as well as left below knee amputation for osteomyelitis in the past, who presents today to the hospital with a fall and right ankle fracture. Our plans are for observation in the hospital for cardiac risk stratification, optimization, and preparation for surgery tomorrow. PLAN: 1. Right ankle fracture: The patient states that his pain is well controlled at this point. He will have Tylenol available for now p.r.n. Other agents can be added as needed. The patient states that he had apparent mechanical fall and no concern for loss of consciousness or syncope. The patient states he is very active normally and able to easily ambulate up and down flight of stairs without chest pain or shortness of breath. He has a known cardiomyopathy with an ejection fraction of 45%. He follows with [facility]. He last had a stress test here in our hospital, 05/29/17; it did show a defect, but this was consistent with already known ischemic defect. The patient has no evidence of decompensated heart failure. I think that he is medically appropriate and that he is optimized from cardiac standpoint. No further cardiac testing is indicated. He is at higher risk for surgery due to his history of suspected ischemic heart disease, heart failure, and diabetes. This will give him a 5.4% chance of cardiac , nonfatal myocardial infarction, nonfatal cardiac arrest according to these predictors. Plans are for anticipated surgery with Dr. Estrada tomorrow. 2. Type 2 diabetes. Plan to hold glipizide. I am not going to check the patient's blood sugar through the evening as he was adamant that he would leave AMA if his blood sugars were checked while in the hospital. I think the fact that he is only on a low-dose glipizide puts him at very low risk for either hypo or hyperglycemia. 3. Hypertension. Plan to continue the patient's home medications of metoprolol , amlodipine. 4. Code status is full code. 5. Disposition. To surgical floor. TIME SPENT: Approximately 60 minutes was spent on the admission of this patient , more than half the time spent with the patient at the bedside reviewing the events leading up to this hospitalization, performing the physical examination, and reviewing my plan of care. FELECIA DAVID NP [id number]/[facility] #: [id number] ALBERTINA
[2017-12-12] MEDS: Metoprolol Tartrate TAB* 50 mg PO SCH (20:29)
[2017-12-12] MEDS: Acetaminophen TAB* 325 MG PO PRN (20:29)
[2017-12-12] MEDS: Terazosin CAP* 5 MG PO SCH (20:30)
[2017-12-12] MEDS: NS 0.9% 1000 ML* 1,000 ML IV SCH (20:31)
--- NOTE | 2017-12-12 22:27 | CONS ---
CONSULTATION REPORT: DATE OF CONSULT: 12/12/17 REASON FOR CONSULT: Right ankle fracture. HISTORY OF PRESENT ILLNESS: The patient is an 82-year-old man, with a history of contralateral left below-knee amputation, who lives with his , who presents today with right ankle pain and swelling , 3 weeks from a fall and injury to his right ankle at home. The patient does not recall the exact date. He believes that it is 3 weeks ago, but it may have been 4 weeks ago that he injured himself at home. Therefore, I suspect at the start of November or the d of October 2017. The patient slipped on a wet spot in his driveway. He fell. He had some mild right ankle pain. He had some swelling as well after that fall. The swelling and pain he thought im proved over time. However, this morning, the patient awoke with increased pain in that right ankle. When he got out of his bath, that pain was significant. The patient thought he was walking without significant difficulty for the past 3 to 4 weeks. The patient denies any other recent injuries. When asked about the callus about the medial aspect of his right forefoot, the patient does not know how long that has been there. He denies any recent infections of the right foot or ankle. It is worth mentioning the patient's complicated history with the contralateral left lower extremity. He had 3 surgical procedures done by Dr. Witt. The last procedure was a left below-knee amputati on. Looking back through Dr. Witt's notes, Dr. 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 The patient at some point had a left stump ulcer with infection, but that resolved. The patient had been seen much more recently by Dr. Witt, in fact the patient was seen on 10/21/[address] Witt in clinic. The patient has also been followed by Dr. Guerra for that stump infection . Looking through the [facility] system, it seems that the patient had below-knee amputation on . Before that, he had 2 prior procedures, but I am unable to visualize the exact dates and natures of those surgeries. PAST MEDICAL HISTORY: Diabetes mellitus, hypertension, anemia, occasional gastroesophageal reflux di sease or gastritis, kidney stones in the 1980s, renal disease, cataracts. PAST SURGICAL HISTORY: Left below-knee amputation. MEDICATIONS AT HOME: 1. Glipizide. 2. Metoprolol. 3. Terazosin. 4. Multivitamin. 5. Amlodipine. 6. Vitamin C. ALLERGIES: No known drug allergies. SOCIAL HISTORY: The patient lives with his . The patient wears a prosthesis on the left lower e xtremity, at the tibial level. REVIEW OF SYSTEMS: The patient denies any chest pain, shortness of breath, headache, abdominal pain. The patient acknowledges decreased sensation about the right foot and ankle, but insists that he do es have some sensation there. PHYSICAL EXAM: At 12:15 p.m. today, his vitals were body temperature 97.6 degrees Fahrenheit, heart rate 84, blood pressure 129/79, respiratory rate 16 with an oxygen saturation of 99% on room air. No acute distress, alert and oriented, appropriate mood and affect at first although later the patient did not perhaps seemed to be fully understanding instructions from hospital staff. The patient seate d in a bay in the emergency room. Well coordinated bilateral upper extremities. Right lower extremi ty exam reveals soft tissue swelling about the right ankle. There was no wrinkling of the skin about the ankle. No impending skin compromise; however, no tenting of the skin. No defect of the skin ab out the ankle. The patient had inconsistent tenderness to palpation about the ankle medial and later al malleoli. At times, he had no tenderness to palpation whatsoever, but when I returned to visit [facility], he did have tenderness to palpation about the ankle. The patient insisted that he had some sensati on about the toes and forefoot to light touch. The patient has significant callus about the medial a spect of the forefoot about the great toe MTP joint. I did not fully debride this; however, there wa s the smell of bacteria about the patient's foot. I confirmed no open skin elsewhere about the foot and ankle. Cap refill less than 2 seconds. Palpation of pulses of the right foot and evaluation of contralateral left lower leg stump deferred. DIAGNOSTIC STUDIES/LAB DATA: White blood cell count 9.7 with a neutrophil percentage of 83.6%. Crea tinine of 1.69. Most recent hemoglobin A1c is from 11/07/15 and is 6.8%. Imaging: Prior to my being consulted, the patient had obtained lower leg x-rays and foot x-rays, but surprisingly not ankle x-rays. I requested right ankle x-rays and reviewed all 3 sets of radiograph s. The right ankle views certainly were most appropriate for the patient's ankle fracture. The darnell ent's mortise was not symmetric. The patient had significant anterior apex deformity of the distal t ibia with a posterior malleolus, medial malleolus fracture of the tibia as well as a lateral malleolu s fracture, all displaced. The patient's tibia fracture is comminuted with what appeared to be a cor onal plane split to it as well as a transverse plane just proximal to the joint line. I ordered a CT scan of the right ankle to obtain better visualization of the fractures. The patient has a comminuted pilon fracture of the distal tibia. There is a medial malleolus fracture component and a posterior malleolus fracture fragment. There is some impaction at the transverse fracture line just proximal to the joint. The joint is located on CT, although there is certainly a gap diastasis between the anterior and posterior fracture fragments of the tibia. The fracture of the lateral mal leolus is oblique SER type. ASSESSMENT: 1. Right ankle fracture, pilon of the distal tibia and distal fibula, displaced, comminuted, subacut e. 2. Diabetes with peripheral neuropathy. 3. History of contralateral left lower extremity ulceration and osteomyelitis with nonhealing and naqvi bsequent requirement of [id number] amputation through the tibial shaft. PLAN: 1. Given the patient's description of no injury whatsoever today, and some sclerosis, about the frac ture lines visible on x-ray, I believe that this injury was sustained 3 weeks ago rather than today. The patient was able to walk around on this for 3 weeks is indicative in and of itself of significan t peripheral neuropathy. I am somewhat surprised by the patient's relatively low hemoglobin A1c. Th e patient's contralateral lower extremity history of infection certainly increases the concern regard ing possible infection of this injury and possible development of wounds. 2. When I saw the patient in the emergency room after his lower leg and foot x-ray but before his an kle x-rays and CT scan, I attempted a reduction. The patient actually tolerated my manipulating his ankle and just with traction I felt myself reducing the ankle and improving its overall appearance, d ecreasing his deformity. Unfortunately but not surprisingly that reduction did not hold after I let g o of the patient's foot and ankle. However, this confirmed that I would likely be able to improve th e patient's ankle fracture alignment with a closed reduction and pinning such as an external fixator procedure. 3. I recommended posterior splint and elevation of the right lower extremity to my emergency departm ent staff. 4. When I first saw the patient, I instructed that the patient be n.p.o. I told the patient. I als o instructed emergency room staff, who also apparently discussed this with the patient and his . Surprisingly and unfortunately, the patient ate a hamburger and so we were unable to proceed with naqvi rgery today given he ate this at approximately noon. Therefore, we will delay surgery until tomorrow morning. 5. N.p.o. after midnight for planned closed reduction and external fixator placement tomorrow angela magallon 6. Given the patient's multiple medical problems, I recommend admission to hospitalist service. I h ope that they optimize and clear him for surgery. They can decide whether or not Cardiology needs to be consulted regarding preoperative optimization and clearance. 7. When I see the patient tomorrow, I will assess his pulses by palpation. 8. Given the patient's complicated contralateral lower extremity history, I briefly telephoned Dr. Charlette juárez and made him aware of the patient. We conferred about plan for external fixator placement. 9. The patient certainly is not currently a candidate for open reduction and internal fixation given the significant swelling about the right ankle. We will determine with postoperative radiographs wh ether the external fixator placement tomorrow will be definitive care or whether once the swelling de creases the patient might be a candidate for open reduction and internal fixation surgery. Stability of fracture fixation, risk of infection and wounds, and impairment of the patient's mobility will al l be certainly considered. An additional thought might be a primary fusion of this ankle as another operative choice. [id number]/[facility] #: [id number]
[2017-12-13] MEDS ORDERED: Famotidine IV* 10 MG/ML 2 ML (20 mg) IV ONE (07:00)
[2017-12-13] MEDS: Multivitamins/Minerals TAB PO SCH (08:09)
[2017-12-13] MEDS: Metoprolol Tartrate TAB* 50 mg PO SCH ×2 (08:09→20:42)
[2017-12-13] MEDS: Ascorbic Acid TAB* 500 MG PO SCH (08:09)
[2017-12-13] MEDS ORDERED: KETAMINE HCL* 50 MG/ML 10 ML VIAL ONE (10:10)
[2017-12-13] MEDS ORDERED: fentaNYL* 50 MCG/ML 2 ML VIAL (100 MCG VIAL) ONE (10:10)
[2017-12-13] MEDS ORDERED: Midazolam* 1 MG/ML 2 ML VIAL (2 MG) ONE (10:10)
[2017-12-13] MEDS ORDERED: ceFAZolin 2 GM PREMIX in ORs 2 GM/50 ML BAG IVPB ONE (10:12)
--- NOTE | 2017-12-13 10:12 | PN ---
Progress Note - Progress Note Date of Service: 12/13/17 SOAP: Subjective: Patient just woke up. Slept okay. Objective: RLE: - Swelling ankle, no breakdown skin - No wrinkle ankle skin - DP weakly palpable, PT not palpable - CR < 2 sec - Callous about great toe MTP joint LLE: - lower leg level stump - Band-Aid was removed and there was a 3mm x 3mm area of skin breakdown Selected Entries 12/13/17 05:06 Temperature 98.8 F Pulse Rate 75 Respiratory 12 Rate Blood Pressure 118/59 (mmHg) O2 Sat by Pulse 97 Oximetry Laboratory Tests 12/12/17 12/12/17 12:27 12:27 WBC 9.7 Hct 37 L Creatinine 1.69 H Assessment: HD 2 R ankle pilon fracture distal tibia and fibula Callous, possible wound R medial forefoot Diabetes mellitus and peripheral neuropathy History of wound healing difficulties left lower extremity requiring a below the knee amputation Plan: - to OR for external fixator placement spanning ankle, possible metatarsal pins , possible debridement medial forefoot - This will be provisional versus definitive fixation for this right ankle fracture - Discussed risks and possible complications including bleeding, infection, nerve or blood vessel injury, ankle pain, stiffness, osteoarthrtis, poor wound healing, among many others. Given the diabetes, neuropathy, limited possible WB on the contralateral left lower extremity and the history of poor wound healing on the LLE requiring eventual below the knee amputation, this is a very serious injury which could conceivably eventually require amputation. I discussed possible definitive treatment withe open reduction internal fixation or fusion surgeries. - Discussed the patient's requirement to be non-weight bearing right lower extremity for at least 8 weeks postoperative. - Discussed need for rehab versus home with VNS postop. Patient became very angry and yelled at the notion of rehab. The patient will refuse rehab placement without hesitation. - Anticoagulation, pain control postop - Definitive plan after the surgery will depend on alignment of fracture fragments and discussion with patient and family
[2017-12-13] MEDS: amLODIPine TAB* 5 MG PO SCH (10:56)
[2017-12-13] MEDS ORDERED: Bupivacaine 0.25% W/EPI* 10 ML SDV ONE (11:35)
[2017-12-13] MEDS ORDERED: Bupivacaine 0.5% SDV PF* 30ML VIAL ONE (11:37)
[2017-12-13] MEDS ORDERED: Lidocaine 2% PF * 5 ML VIAL ONE (11:37)
[2017-12-13] MEDS ORDERED: Phenylephrine INJ* 10 MG/ML 1 ML VIAL (10 MG) ONE (11:37)
[2017-12-13] MEDS ORDERED: Propofol* 10 MG/ML 20 ML BTL IV PUSH ONE (11:38)
[2017-12-13] MEDS ORDERED: fentaNYL* 50 MCG/ML 2 ML VIAL (100 MCG VIAL) IV PRN (13:00)
[2017-12-13] MEDS ORDERED: DiMENhydriNATE IV* 50 MG/ML VIAL IV PUSH PRN (13:00)
[2017-12-13] MEDS ORDERED: Ondansetron INJ* 2 MG/ML VIAL IV PRN (13:00)
[2017-12-13] MEDS ORDERED: Naloxone* 0.4 MG/ML 1 ML VIAL IV PRN (13:00)
[2017-12-13] MEDS ORDERED: PROCHLORPERAZINE INJ 5 MG/ML 2 ML VIAL IV PRN (13:00)
[2017-12-13] MEDS ORDERED: Morphine VIAL* 4 MG/ML VIAL (1 ml vial) IV PRN (13:00)
--- NOTE | 2017-12-13 13:13 | RAD ---
INDICATION: Ankle fracture COMPARISONS: CT dated December 12, 2017 TECHNIQUE: Fluoroscopy was provided for a surgical procedure. Total fluoroscopy time is: 38.2 seconds FINDINGS: Spot images demonstrate external fixation of the ankle. IMPRESSION: FLUOROSCOPY WAS PROVIDED FOR A SURGICAL PROCEDURE CPT II Codes: G9500
[2017-12-13] MEDS: NS 0.9% 1000 ML* 1,000 ML IV SCH (15:14)
--- NOTE | 2017-12-13 16:39 | PN ---
Subjective Date of Service: 12/13/17 Interval History: Patient examined post-operative. Patient denies Pain in leg but has very little sensation. Patient denies F/C, N/V, abdominal pain, CP, SOB, N/V, or other pain. Patient is in his normal state of health, patient refuses blood glucose monitoring and insulin therapy while in the hospital. Family History: Unchanged from Admission Social History: Unchanged from Admission Past Medical History: Unchanged from Admission Objective Active Medications: Acetaminophen (Tylenol Tab*) 650 mg PO Q6H PRN PRN Reason: PAIN Last Admin: 12/12/17 20:29 Dose: 650 mg Amlodipine Besylate (Norvasc Tab*) 2.5 mg PO QAM [facility] Last Admin: 12/13/17 10:56 Dose: Not Given Ascorbic Acid (Vitamin C Tab*) 1,000 mg PO QAM [facility] Last Admin: 12/13/17 08:09 Dose: 1,000 mg Enoxaparin Sodium (Lovenox(*)) 40 mg SUBCUT Q24H [facility] Sodium Chloride (Ns 0.9% 1000 Ml*) 1,000 mls @ 75 mls/hr IV PER RATE [facility] Last Admin: 12/13/17 15:14 Dose: 75 mls/hr Cefazolin Sodium/Dextrose (Kefzol 1 Gm In Dextrose Duplex (*)) 1 gm in 50 mls @ 200 mls/hr IVPB Q8H [facility] Influenza Virus Vaccine (Fluarix *Quad* 2018-*) 0.5 ml IM .ONCE ONE Stop: 12/14/17 09:01 Metoprolol Tartrate (Lopressor Tab*) 50 mg PO BID [facility] Last Admin: 12/13/17 08:09 Dose: 50 mg Multivitamins/Minerals (Theragran/Minerals Tab*) 1 tab PO DAILY [facility] Last Admin: 12/13/17 08:09 Dose: 1 tab Oxycodone HCl (Roxycodone Tab*) 5 mg PO Q4H PRN PRN Reason: PAIN Pneumococcal Polyvalent Vaccine (Pneumococcal Vac 23-Polyvalent*) 0.5 ml IM .ONCE ONE Stop: 12/14/17 09:01 Terazosin HCl (Hytrin Cap*) 5 mg PO BEDTIME [facility] Last Admin: 12/12/17 20:30 Dose: 5 mg Vital Signs - 8 hr 12/13/17 12/13/17 12/13/17 12:48 12:50 12:55 Temperature 97.2 F Pulse Rate 68 78 76 Respiratory 18 16 16 Rate Blood Pressure 144/75 139/79 135/91 (mmHg) O2 Sat by Pulse 98 99 96 Oximetry 12/13/17 12/13/17 12/13/17 13:00 13:15 13:30 Temperature Pulse Rate 74 71 72 Respiratory 16 16 18 Rate Blood Pressure 126/78 136/82 127/69 (mmHg) O2 Sat by Pulse 97 97 94 Oximetry 12/13/17 12/13/17 12/13/17 13:45 14:00 14:21 Temperature 98.1 F Pulse Rate 70 73 75 Respiratory 18 16 16 Rate Blood Pressure 119/62 136/86 137/60 (mmHg) O2 Sat by Pulse 95 94 97 Oximetry 12/13/17 12/13/17 12/13/17 14:29 15:28 16:00 Temperature 98.1 F 97.9 F Pulse Rate 75 70 Respiratory 16 17 Rate Blood Pressure 137/60 119/53 (mmHg) O2 Sat by Pulse 97 100 100 Oximetry Oxygen Devices in Use Now: None Appearance: Patient is an 82yo male who appears stated age and is sitting in the bed in [facility]. Eyes: No Scleral Icterus, PERRLA Ears/Nose/Mouth/Throat: NL Teeth, Lips, Gums, Clear Oropharnyx, Mucous Membranes Moist Neck: NL Appearance and Movements; NL JVP, Trachea Midline Respiratory: Symmetrical Chest Expansion and Respiratory Effort, Clear to Auscultation Cardiovascular: NL Sounds; No Murmurs; No JVD, RRR, No Edema Abdominal: NL Sounds; No Tenderness; No Distention, No Hepatosplenomegaly Lymphatic: No Cervical Adenopathy Extremities: No Clubbing, Cyanosis, - - LLE surgically absent. Skin: No Rash or Ulcers, No Nodules or Sclerosis Neurological: Alert and Oriented x 3, NL Sensation, NL Muscle Strength and Tone , - - CN II-XII intact. Result Diagrams: 12/12/17 12:27 12/12/17 12:27 Microbiology and Other Data: Microbiology 12/13/17 11:46 Gram Stain - Final Wound Assess/Plan/Problems-Billing Assessment: Patient is an 82yo male with a PMH for DM II, Cardiomyopathy, HTN, LBKA, TAA, who resents with right comminuted ankle fracture and is S/P extrenal fixator placement without other active medical problem or known complication. - Patient Problems (1) Closed right ankle fracture Current Visit: Yes Status: Acute Code(s): S82.891A - OTH FRACTURE OF RIGHT LOWER LEG, INIT FOR CLOS FX SNOMED Code(s): 73720906 Comment: - S/P External fixator placement. - Appreciate orthopedic consult - NWB at this time. - Pain control, PT/OT, Bowel regimen. (2) Status post below knee amputation of left lower extremity Current Visit: No Status: Acute Code(s): Z89.512 - ACQUIRED ABSENCE OF LEFT LEG BELOW KNEE SNOMED Code(s): 295323738926992 Comment: - Due to non-healing wound - High index of concern for complications in RLE. (3) Cardiomyopathy Current Visit: Yes Status: Acute Code(s): I42.9 - CARDIOMYOPATHY, UNSPECIFIED SNOMED Code(s): 92373870 Comment: - EF 45% most recently - No signs of acute exacerbation - Judicious IV fluids. (4) Diabetes Current Visit: No Status: Acute Code(s): E11.9 - TYPE 2 DIABETES MELLITUS WITHOUT COMPLICATIONS SNOMED Code(s): 40945916 Comment: - Refuses blood glucose montioring with meals. - Refuses insulin therapy - Will check A1c - Resume Glipizide when taking adequate PO. (5) Hypertension Current Visit: No Status: Acute Code(s): I10 - ESSENTIAL (PRIMARY) HYPERTENSION SNOMED Code(s): 65436264 Comment: - BP well controlled. Continue metoprolol , amlodipine and terazosin. (6) DVT prophylaxis Current Visit: No Status: Acute Code(s): EDR0453 - SNOMED Code(s): 498121434 Comment: -Continue lovenox.
[2017-12-13] MEDS ORDERED: Senna TAB PO PRN (18:13)
[2017-12-13] MEDS ORDERED: Magnesium Hydroxide LIQ* 30 ML UDC PO PRN (18:13)
[2017-12-13] MEDS ORDERED: Polyethylene Glycol 3350* 17 GM PACKET PO PRN (18:13)
[2017-12-13] MEDS: [UNRECOGNIZED DRUG - OTHER] IVPB SCH (19:57)
[2017-12-13] MEDS: CEFAZOLIN 1 GM IVPB SCH (19:57)
[2017-12-13] MEDS: Terazosin CAP* 5 MG PO SCH (20:42)
[2017-12-13] MEDS: Docusate CAP* 100 MG PO SCH (20:42)
[2017-12-14] MEDS: oxyCODONE TAB* 5 MG TAB PO PRN (00:47)
[2017-12-14] MEDS: CEFAZOLIN 1 GM IVPB SCH ×3 (04:25→19:36)
[2017-12-14] MEDS: [UNRECOGNIZED DRUG - OTHER] IVPB SCH ×3 (04:25→19:36)
[2017-12-14] MEDS: NS 0.9% 1000 ML* 1,000 ML IV SCH (04:31)
[2017-12-14 06:30] LABS: ABS Basophils 0 10^3/ul (0-0.2); ABS Eosinophils 0.1 10^3/ul (0-0.6); ABS Lymphocytes 0.8 10^3/ul (1.0-4.8); ABS Monocytes 0.9 10^3/ul (0-0.8); ABS Neutrophils 6.1 10^3/ul (1.5-7.7); ABS Nucleated RBC 0 10^3/ul; Eosinophil % 0.7 % (0-6); Hematocrit 31 % (42-52); Hemoglobin 10.3 g/dl (14.0-18.0); Lymphocyte % 9.7 % (25-47); Mean Corpuscular HGB Conc 34 g/dl (31-36); Mean Corpuscular Hemoglobin 31 pg (27-31); Mean Corpuscular Volume 93 fL (80-94); Mean Platelet Volume 6.4 um3 (7.4-10.4); Nucleated Red Blood Cells % 0; Platelet Count 257 10^3/ul (150-450); Red Blood Count 3.29 10^6/ul (4.00-5.40); Red Cell Distribution Width 14 % (10.5-15); White Blood Count 7.9 10^3/ul (3.5-10.8)
--- NOTE | 2017-12-14 06:52 | PN ---
Progress Note - Progress Note Date of Service: 12/14/17 SOAP: Subjective: resting comfortably, reports pain during night which is now improved following pain medications Objective: Vital Signs Temp Pulse Resp BP Pulse Ox 99.9 F 77 19 112/44 95 12/14/17 04:26 12/14/17 04:26 12/14/17 04:27 12/14/17 04:26 12/14/17 04:26 Laboratory Last Values WBC 7.9 10^3/ul (3.5-10.8) 12/14/17 06:21 RBC 3.29 10^6/ul (4.00-5.40) L 12/14/17 06:21 Hgb 10.3 g/dl (14.0-18.0) L 12/14/17 06:21 Hct 31 % (42-52) L 12/14/17 06:21 MCV 93 fL (80-94) 12/14/17 06:21 MCH 31 pg (27-31) 12/14/17 06:21 MCHC 34 g/dl (31-36) 12/14/17 06:21 RDW 14 % (10.5-15) 12/14/17 06:21 Plt Count 257 10^3/ul (150-450) 12/14/17 06:21 MPV 6.4 um3 (7.4-10.4) L 12/14/17 06:21 Neut % (Auto) 77.3 % (38-83) 12/14/17 06:21 Lymph % (Auto) 9.7 % (25-47) L 12/14/17 06:21 Grant % (Auto) 11.8 % (0-7) H 12/14/17 06:21 Eos % (Auto) 0.7 % (0-6) 12/14/17 06:21 Baso % (Auto) 0.5 % (0-2) 12/14/17 06:21 Absolute Neuts (auto) 6.1 10^3/ul (1.5-7.7) 12/14/17 06:21 Absolute Lymphs (auto) 0.8 10^3/ul (1.0-4.8) L 12/14/17 06:21 Absolute Monos (auto) 0.9 10^3/ul (0-0.8) H 12/14/17 06:21 Absolute Eos (auto) 0.1 10^3/ul (0-0.6) 12/14/17 06:21 Absolute Basos (auto) 0 10^3/ul (0-0.2) 12/14/17 06:21 Absolute Nucleated RBC 0 10^3/ul 12/14/17 06:21 Nucleated RBC % 0 12/14/17 06:21 INR (Anticoag Therapy) 0.99 (0.77-1.02) 12/12/17 12:27 APTT 32.4 seconds (26.0-36.3) 12/12/17 12:27 Sodium 137 mmol/L (135-145) 12/14/17 06:21 Potassium 4.0 mmol/L (3.5-5.0) 12/14/17 06:21 Chloride 108 mmol/L (101-111) 12/14/17 06:21 Carbon Dioxide 23 mmol/L (22-32) 12/14/17 06:21 Anion Gap 6 mmol/L (2-11) 12/14/17 06:21 BUN 24 mg/dL (6-24) 12/14/17 06:21 Creatinine 1.53 mg/dL (0.67-1.17) H 12/14/17 06:21 Est GFR ( Amer) 53.3 (>60) 12/14/17 06:21 Est GFR (Non-Af Amer) 44.0 (>60) 12/14/17 06:21 BUN/Creatinine Ratio 15.7 (8-20) 12/14/17 06:21 Glucose 128 mg/dL (70-100) H 12/14/17 06:21 Hemoglobin A1c 5.8 % (4.0-5.6) H 12/12/17 12:27 Lactic Acid 0.7 mmol/L (0.5-2.0) 12/12/17 12:27 Calcium 8.3 mg/dL (8.6-10.3) L 12/14/17 06:21 Total Bilirubin 0.60 mg/dL (0.2-1.0) 12/12/17 12:27 AST 15 U/L (13-39) 12/12/17 12:27 ALT 8 U/L (7-52) 12/12/17 12:27 Alkaline Phosphatase 58 U/L (34-104) 12/12/17 12: CK-MB (CK-2) 2.3 ng/mL (0.6-6.3) 12/12/17 12: Troponin I 0.01 ng/mL (<0.04) 12/12/17 12: Total Protein 6.9 g/dL (6.4-8.9) 12/12/17 12: Albumin 4.0 g/dL (3.2-5.2) 12/12/17 12: Globulin 2.9 g/dL (2-4) 12/12/17 12: Albumin/Globulin Ratio 1.4 (1-3) 12/12/17 12: Blood Type A Negative 12/12/17 12: Antibody Screen Negative 12/12/17 12:27 incision: c/d/i PE: able to move toes and has intact sensation, good cap refill, 2+ DP pulse Assessment: s/p ex fix application RLE; POD #1 Plan: 1) NWB RLE 2) Lovenox for DVT prophylaxis 3) Ancef for 48 hours 4) await wound culture results
[2017-12-14] MEDS ORDERED: Pneumococcal *Vac Polyvalent 0.5 ML VIAL IM ONE (09:00)
[2017-12-14] MEDS: amLODIPine TAB* 5 MG PO SCH (09:16)
[2017-12-14] MEDS: Metoprolol Tartrate TAB* 50 mg PO SCH ×2 (09:17→19:42)
[2017-12-14] MEDS: Docusate CAP* 100 MG PO SCH ×2 (09:17→19:42)
[2017-12-14] MEDS: Ascorbic Acid TAB* 500 MG PO SCH (09:17)
[2017-12-14] MEDS: Multivitamins/Minerals TAB PO SCH (09:18)
--- NOTE | 2017-12-14 09:55 | PN ---
Subjective Date of Service: 12/14/17 Interval History: Patient in good spirits except dissatisfaction with the food. Patient denies pain in his leg at this time but endorses stabbing intermittent pain which is severe and without obvious provoking factors. Patient denies numbness and tingling in his toes. Patient denies F/C, N/V, abdominal pain, diarrhea, constipation, CP, SOB, palpitations, dizziness or other pain. Patient is adamantly opposed to rehab. Family History: Unchanged from Admission Social History: Unchanged from Admission Past Medical History: Unchanged from Admission Objective Active Medications: Acetaminophen (Tylenol Tab*) 650 mg PO Q6H PRN PRN Reason: PAIN Last Admin: 12/12/17 20:29 Dose: 650 mg Amlodipine Besylate (Norvasc Tab*) 2.5 mg PO QAM [facility] Last Admin: 12/14/17 09:16 Dose: 2.5 mg Ascorbic Acid (Vitamin C Tab*) 1,000 mg PO QAM [facility] Last Admin: 12/14/17 09:17 Dose: 1,000 mg Docusate Sodium (Colace Cap*) 100 mg PO BID [facility] Last Admin: 12/14/17 09:17 Dose: Not Given Enoxaparin Sodium (Lovenox(*)) 40 mg SUBCUT Q24H [facility] Sodium Chloride (Ns 0.9% 1000 Ml*) 1,000 mls @ 75 mls/hr IV PER RATE [facility] Last Admin: 12/14/17 04:31 Dose: 75 mls/hr Cefazolin Sodium/Dextrose (Kefzol 1 Gm In Dextrose Duplex (*)) 1 gm in 50 mls @ 200 mls/hr IVPB Q8H [facility] Last Admin: 12/14/17 04:25 Dose: 200 mls/hr Magnesium Hydroxide (Milk Of Magnesia Liq*) 30 ml PO BID PRN PRN Reason: CONSTIPATION Metoprolol Tartrate (Lopressor Tab*) 50 mg PO BID [facility] Last Admin: 12/14/17 09:17 Dose: 50 mg Multivitamins/Minerals (Theragran/Minerals Tab*) 1 tab PO DAILY [facility] Last Admin: 12/14/17 09:18 Dose: 1 tab Oxycodone HCl (Roxycodone Tab*) 5 mg PO Q4H PRN PRN Reason: PAIN Last Admin: 12/14/17 00:47 Dose: 5 mg Polyethylene Glycol/Electrolytes (Miralax*) 17 gm PO DAILY PRN PRN Reason: CONSTIPATION Senna (Senokot Tab*) 1 tab PO BEDTIME PRN PRN Reason: CONSTIPATION Terazosin HCl (Hytrin Cap*) 5 mg PO BEDTIME KENAN Last Admin: 12/13/17 20:42 Dose: 5 mg Vital Signs - 8 hr 12/14/17 12/14/17 12/14/17 04:26 04:27 08:03 Temperature 99.9 F 99.7 F Pulse Rate 77 80 Respiratory 18 19 20 Rate Blood Pressure 112/44 134/53 (mmHg) O2 Sat by Pulse 95 94 Oximetry Oxygen Devices in Use Now: None Appearance: Patient is an 82yo male who appears stated age and is sitting in the bed in NAD. Eyes: No Scleral Icterus, PERRLA Ears/Nose/Mouth/Throat: NL Teeth, Lips, Gums, Clear Oropharnyx, Mucous Membranes Moist Neck: NL Appearance and Movements; NL JVP, Trachea Midline Respiratory: Symmetrical Chest Expansion and Respiratory Effort, Clear to Auscultation Cardiovascular: NL Sounds; No Murmurs; No JVD, No Edema, - - Regular Tachycardia , rate 105. Abdominal: NL Sounds; No Tenderness; No Distention, No Hepatosplenomegaly Lymphatic: No Cervical Adenopathy Extremities: No Edema, No Clubbing, Cyanosis, - - LLE surgically absent. RLE externally fixated and wrapped in DIPESH bandage. Skin: No Nodules or Sclerosis Neurological: Alert and Oriented x 3, NL Sensation, NL Muscle Strength and Tone , - - CN II-XII intact. Result Diagrams: 12/14/17 06:21 12/14/17 06:21 Microbiology and Other Data: Microbiology 12/13/17 11:46 Gram Stain - Final Wound Assess/Plan/Problems-Billing Assessment: Patient is an 82yo male with a PMH for DM II, Cardiomyopathy, HTN, LBKA, TAA, who resents with right comminuted ankle fracture and is S/P external fixator placement without other active medical problem or known complication. - Patient Problems (1) Closed right ankle fracture Current Visit: Yes Status: Acute Code(s): S82.891A - OTH FRACTURE OF RIGHT LOWER LEG, INIT FOR CLOS FX SNOMED Code(s): 50280331 Comment: - S/P External fixator placement. - Appreciate orthopedic consult - NWB at this time. - Pain control, PT/OT, Bowel regimen. - Adamantly opposed to [facility] (2) Status post below knee amputation of left lower extremity Current Visit: No Status: Acute Code(s): Z89.512 - ACQUIRED ABSENCE OF LEFT LEG BELOW KNEE SNOMED Code(s): 440965013283058 Comment: - Due to non-healing wound - High index of concern for complications in RLE. (3) Cardiomyopathy Current Visit: Yes Status: Acute Code(s): I42.9 - CARDIOMYOPATHY, UNSPECIFIED SNOMED Code(s): 36455065 Comment: - EF 45% most recently - No signs of acute exacerbation - Judicious IV fluids. (4) Diabetes Current Visit: No Status: Acute Code(s): E11.9 - TYPE 2 DIABETES MELLITUS WITHOUT COMPLICATIONS SNOMED Code(s): 18987202 Comment: - Refuses blood glucose montioring with meals. - Refuses insulin therapy - A1c 5.8% - Resume Glipizide when taking adequate PO. (5) Hypertension Current Visit: No Status: Acute Code(s): I10 - ESSENTIAL (PRIMARY) HYPERTENSION SNOMED Code(s): 42875004 Comment: - BP well controlled. Continue metoprolol , amlodipine and terazosin. (6) DVT prophylaxis Current Visit: No Status: Acute Code(s): XQZ9278 - SNOMED Code(s): 497853595 Comment: -Continue lovenox. Status and Disposition: Inpatient, Home when able.
[2017-12-14] MEDS: Enoxaparin(*) 40 MG/0.4 ML SYR SUBCUT SCH (12:27)
[2017-12-14] MEDS: Terazosin CAP* 5 MG PO SCH (19:42)
--- NOTE | 2017-12-14 21:58 | PN ---
Progress Note - Progress Note Date of Service: 12/14/17 SOAP: Subjective: Decreased right ankle discomfort. Patient wants to go home tomorrow if possible. Objective: RLE: - Decreasing soft tissue swelling ankle, although skin does not wrinkle - Some intact sensation to light touch foot and ankle - Ex-fix in place. No significant pin drainage. - Some spotting on dressing over medial forefoot wound. LLE: - Adhesive dressing left in place. No spotting visible on it. - Some fluid palpable at stump, but no tenderness. Microbiology 12/13/17 11:46 Wound Gram Stain - Final 12/13/17 11:46 Wound Wound Culture - Preliminary No Growth Day 1 No Growth Day 1 Selected Entries 12/14/17 16:22 Temperature 99.7 F Pulse Rate 70 Respiratory 17 Rate Blood Pressure 138/55 (mmHg) O2 Sat by Pulse 97 Oximetry Laboratory Tests 12/14/17 12/14/17 06:21 06:21 Hct 31 L Creatinine 1.53 H Assessment: - POD 1 closed reduction right ankle pilon displaced comminuted distal tibia and fibula fractures, subacute (3-4 weeks) with placement of ex-fix and I&D of medial forefoot wound. - History of left BKA, diabetes, neuropathy Plan: - Ex-fix in place RLE. I will ask in-house PA to tomorrow add a cross-bar to the kick-stands to keep them in place. - Elevate RLE on pillows - Wound care nurse consult Friday morning for his right medial forefoot wound and his tiny superficial skin ulcer on his left BKA stump - Non-weight bearing RLE. PT/OT for safety. - I spoke with the patient tonight about definitive treatment with the ex-fix versus ORIF or fusion (possibly with an intramedullary nail) when the soft tissue swelling decreases. His ankle is still quite swollen. - Patient is adamant about leaving hospital on Friday. He understands that his safety may be compromised by weight bearing only through his left lower extremity BKA prothesis, but is comfortable with that in order to return home. - I'll discuss this complex case with my partners on Friday. Complexities include 1) the subacute nature of this fracture, 2) the patient's likely poor future bone healing and 3) his neuropathy and history of poor wound healing.
--- NOTE | 2017-12-15 02:11 | OP ---
DATE OF OPERATION: 12/13/17 - ROOM #340 DATE OF : 39. SURGEON: Faraz Estrada M.D. DIRECTOR OF CORPORATE REAL ESTATE: ERWIN Sequeira. A physician biology laboratory assistant was required for the length of the procedure for positioning, manipulation, and external fixator placement. ANESTHESIOLOGIST: Dr. Christian Bergman. ANESTHESIA: Spinal anesthesia, light sedation. PRE-OP DIAGNOSES: 1. Right ankle trimalleolar fracture, displaced, subacute, pilon. 2. Diabetes with peripheral neuropathy bilateral lower extremities. 3. History of contralateral left lower extremity ulceration and osteomyelitis with nonhealing and subsequent requirement of several surgical procedures culminating in a below the knee amputation through the tibial shaft. 4. Wound right medial forefoot. POST-OP DIAGNOSES: 1. Right ankle trimalleolar fracture, displaced, subacute, pilon. 2. Diabetes with peripheral neuropathy bilateral lower extremities. 3. History of contralateral left lower extremity ulceration and osteomyelitis with nonhealing and subsequent requirement of several surgical procedures comminuting in a below the knee amputation through the tibial shaft. 4. Wound right medial forefoot. OPERATIVE PROCEDURE: 1. Closed treatment right ankle trimalleolar ankle fracture, pilon, with manipulation. 2. Placement of external fixator, Uniplane, spanning right ankle joint. 3. Debridement skin and subcutaneous tissue, right medial forefoot wound. ANTIBIOTICS: 2 g Ancef IV. IV FLUIDS: See anesthesia note. SKIN TO SKIN TIME: Approximately 60 minutes if not a little bit less. RADIATION EXPOSURE: Large C-arm. 38 seconds. SPECIMEN: Culture swabs used both arm reamings of the tibia shaft as well as from the medial forefoot wound. IMPLANTS: Large external fixator, Synthes with 2 tibial pins placed and one calcaneus spanning pin placed. COMPLICATIONS: None. ESTIMATED BLOOD LOSS: Minimal. INDICATIONS FOR PROCEDURE: The patient is an 82-year-old man, with a history of contralateral left below knee amputation, who lives with his , and who presented on 12/12/17 to [facility] with complaints of right ankle pain. The patient states that he had fallen and injured his right ankle at some point previously. The patient first estimated it was 3 weeks prior, but later said it was 4 weeks and could have been even further in the past. The patient states that initially there was some pain and swelling of that right ankle. However, this improved with time and the patient continued to walk on that right ankle. He was able to even walk up and down stairs, and the patient told another physician that he had even visited at [facility] during this time. The patient walks with a below- the-knee amputation's prosthesis on his contralateral left lower extremity. The patient states that the morning of 12/12/17, the ankle started to hurt some more. There was no new fall on the date of 12/12/17. The patient noted a little bit more pain and a little bit more swelling, so went to [facility]. X-rays in the emergency department demonstrated a fracture of the distal tibia and fibula. The fracture of the distal tibia was quite comminuted with anterior and posterior fragments and then a transverse fracture plane with a proximal fragment. There was also an oblique distal fibula fracture. The x- rays demonstrated some sclerosis, seemed to be, about the distal tibial fracture line, indicated and possibly this was nonacute, subacute fracture. On exam in the emergency room, the patient had no wrinkling of the skin. I was able to manipulate the patient's ankle and improve its appearance, with less deformity in the emergency room with minimal of discomfort to the patient and so I knew that the patient's ankle was amenable to improve positioning with the surgical procedure. The patient adamantly claimed that he could feel light touch in his right foot. I found his exam to be inconsistent with regards to how much discomfort to palpation of his ankle caused and how much sensation of light touch he had in the foot. The patient had been treated with [address] Witt, my partner for the contralateral left lower extremity with a nonhealing wound and osteomyelitis. This culminated in a below the knee amputation, 11/06/15. However, the patient has even had troubles with wound breakdown about the stump and has been seen as recently in clinic on 10/21/[address] Witt. The patient was noted to have a hemoglobin A1c that was 6.8%, 11/07/15. I ordered a CT scan to better evaluate fracture fragments. I wanted to obtain improve production of the patient's ankle fracture and stabilization to reduce soft tissue swelling and the possibility of wound breakdown. Therefore, I thought external fixation after closed reduction and treatment of his right ankle fracture was most appropriate. Given the patient's neuropathy and his history of wound breakdown in the distal extremities, this may prove to be definitive fixation or may prove to be provisional prior to a formal open reduction internal fixation, or fusion procedure. We originally intended to proceed forward with surgery on 12/12/17; however, the patient, against medical advice, ate food in the emergency room and so we delayed surgery until the following day, 12/13/17. Note that, on exam, the patient smelled of bacteria about his right foot. I noted that his only wound has been to right foot and ankle was with some callused tissue about the medial aspect of the forefoot close to the great toe MTP joint. Therefore, I included in the surgical consent in my plan, a debridement of that wound to see if there was an infection present there. Preoperatively, I also talked about rehab placement postoperative. The patient was adamantly opposed to any form of rehab placement and said he would prefer going home with visiting nurse services. I spent sometime talking to the patient and his at length about the seriousness of his injury. Given the patient's neuropathy and diabetes, this injury may eventually lead to the need to fuse his ankle, or amputate at the tibia level. As well, mobility postoperatively will be very difficult as the patient will be nonweightbearing for at least 8 weeks and I am not sure how stable he will be on his contralateral prosthesis. This will be a challenge to recover from this injury. The patient accepted the the risks and potential complications of procedure. DESCRIPTION OF PROCEDURE: The patient signed a written consent. Operative extremity was marked in preoperative holding. The patient was taken back to the operating room and placed supine on operating room table. The patient had spinal anesthetic placed by Dr. Bergman. We allowed the spinal to start working , the patient was likely sedated as well. A tourniquet was placed about the right thigh, but was never inflated. The right lower extremity was prepped and draped. Surgical time-out was performed. We brought in a C-arm and using traction, we were able to demonstrate some improvement in reduction of ankle and fracture fragments. I next marked on the skin where I would like my 2 tibial pins to be placed. This was multiple centimeters proximal to the imagined proximal extent of a future plate to be placed during open reduction internal fixation surgery. I made a small zeb in the skin just medial to the anterior crest of the tibia. I drilled bicortically and then placed by hand my tibial pin. I used the future fixation guide to dictate how far proximal my second pin would be placed, I made a zeb in the skin, drilled bicortically and then placed another tibial pin. When I drilled the more proximal of the 2 holes, I noted some brown coloration at first of the fluid and perhaps an abnormal smell. The brown was likely some coagulated blood and the smell was likely because of the foot, but anyway I still sent some bone from that drilling, to be swabbed by aerobic and anaerobic culture swabs and sent for cultures. I brought the C-arm in to take lateral images and adjusted slightly the depth of insertion of my tibial pins. I next moved to the calcaneus. I confirmed the appropriate spot for a medial incision with one C-arm image. I next placed my calcaneus pin, it was nicely parallel to the ankle joint. I next placed all the appropriate bridging bars and fixation units for the external fixator apparatus. I kept everything loose. We then performed some manipulation of the fracture site. I tried to undo, straighten out the anterior apex deformity at the fracture site as well as to provide traction and some dorsiflexion of the ankle to improve the reduction. I believe the reduction as demonstrated by C-arm imaging was improved. At this point, we tightened the external fixator. The foot was in a nearly plantigrade position and perhaps 0 to 5 degrees of plantar flexion. I debated adding 2 metatarsal pins to improve my fixation and to keep the foot out of equinus. I decided that I was less concerned with the patient having an equinus contracture and more concerned with a possible nonhealing wound and potential infection of the metatarsal bones where I would place those pins. Therefore, I opted not to place metatarsal pins. I placed 2 rods as a kickstand device that would point posteriorly so that the patient could rest his ankle in an elevated position. Between placing the tibial and calcaneal pins, I addressed the callus about the great toe MTP joint. I debrided thickened skin. There was some opening of the skin underneath this to subcutaneous tissue. No purulence encountered. Clearly some nonhealing of the wound was present and I debrided with a rongeur, likely some superficial most tissue. At the conclusion of the case, we applied a dry sterile dressing to the medial forefoot wound and iodine-soaked 4x4s followed by Kerlix followed by an DIPESH bandage to the ex-fix apparatus. It should also be noted that with the patient under anesthesia, we examined the contralateral left below knee amputation stump. There was just the smallest amount of superficial skin breakdown, but the end of that stump was boggy, possible representing a seroma. The patient was lightened of sedation and sent to the PACU for recovery. DISPOSITION: The patient was readmitted postoperatively for pain control, elevation, physical therapy, and occupational therapy. He will receive IV antibiotics for 48 hours postoperatively for that medial forefoot wound. He is nonweightbearing right lower extremity. We will do skin checks on that ankle to determine when and if the patient is suitable for an open reduction and internal fixation procedure. This is a very difficult injury and may not heal regardless of treatment pursued and there is significant possibility of infection given the troubles with his contralateral lower extremity. As well, the patient seems to have some social issues. When I mentioned rehab as well as VNS being possible dispositions after his operation, the patient yelled quite loudly that rehab was not a preference of his. This seemed like an inappropriate response and apparently the patient has been quite angry in prior hospitalizations about spending the night in the hospital. So, there may be some compliance issues as well that could inhibit outcomes. We will speak with his family at length, evaluate preoperative and postoperative imaging and the quality of the lower leg to determine whether the patient would be treated definitely with the external fixator or we will have an open reduction and internal fixation or another open procedure. [id number]/[facility] #: [id number] ALBERTINA
[2017-12-15] MEDS: CEFAZOLIN 1 GM IVPB SCH ×3 (03:32→19:50)
[2017-12-15] MEDS: [UNRECOGNIZED DRUG - OTHER] IVPB SCH ×3 (03:32→19:50)
[2017-12-15 05:59] LABS: ABS Basophils 0 10^3/ul (0-0.2); ABS Eosinophils 0.2 10^3/ul (0-0.6); ABS Lymphocytes 0.8 10^3/ul (1.0-4.8); ABS Monocytes 0.8 10^3/ul (0-0.8); ABS Neutrophils 5.5 10^3/ul (1.5-7.7); ABS Nucleated RBC 0 10^3/ul; Eosinophil % 2.6 % (0-6); Hematocrit 31 % (42-52); Hemoglobin 10.5 g/dl (14.0-18.0); Lymphocyte % 10.6 % (25-47); Mean Corpuscular HGB Conc 34 g/dl (31-36); Mean Corpuscular Hemoglobin 32 pg (27-31); Mean Corpuscular Volume 92 fL (80-94); Mean Platelet Volume 6.6 um3 (7.4-10.4); Nucleated Red Blood Cells % 0; Platelet Count 285 10^3/ul (150-450); Red Blood Count 3.33 10^6/ul (4.00-5.40); Red Cell Distribution Width 14 % (10.5-15); White Blood Count 7.4 10^3/ul (3.5-10.8)
[2017-12-15 06:16] LABS: EGFR Non-African American 41.5 (>60)
[2017-12-15] MEDS: Metoprolol Tartrate TAB* 50 mg PO SCH ×2 (08:43→20:49)
[2017-12-15] MEDS: Ascorbic Acid TAB* 500 MG PO SCH (08:43)
[2017-12-15] MEDS: Docusate CAP* 100 MG PO SCH ×2 (08:44→20:49)
[2017-12-15] MEDS: Multivitamins/Minerals TAB PO SCH (08:44)
[2017-12-15] MEDS: amLODIPine TAB* 5 MG PO SCH (08:44)
[2017-12-15] MEDS: Enoxaparin(*) 40 MG/0.4 ML SYR SUBCUT SCH (12:05)
--- NOTE | 2017-12-15 12:36 | PN ---
Progress Note - Progress Note Date of Service: 12/15/17 SOAP: Subjective: [Pt was seen sitting in chair today. States he wants to go home. Discussion of staying in the hospital and possibly going to PMRU was discussed but the pt states that he would rather go home. PT has deemed the pt unfit to go home and suggested rehab which was again discussed with the pt but he again stated that he would rather not and would like to go home. He denies any chest pain. SOB. Nausea or vomiting. He states that due to the issue of his car breaking down he will be unable to leave today and would like to leave tomorrow afternoon. ] Objective: [General: A&Ox3, NAD MSK, RLE: Dressing is c/d/i. The pt has an external fixation device present. He is able to wiggle his toes. Sensation is decreased due to neuropathy. ] Vital Signs Temp 98.2 F 12/15/17 07:31 Pulse 76 12/15/17 07:31 Resp 18 12/15/17 08:48 BP 120/75 12/15/17 07:31 Pulse Ox 95 12/15/17 07:31 Intake & Output 12/14/17 12/15/17 12/15/17 18:59 06:59 18:59 Intake Total 1695 800 400 Output Total 600 1300 Balance 1095 -500 400 Intake: IVPB 55 100 ABX - CEFAZOLIN 55 100 Oral 1640 700 400 Output: [place] 600 1300 Other: Date of Last Bowel 12/15/17 Movement # Bowel Movements 0 1 Estimated Stool Amount Large Assessment: s/p ex fix application RLE; POD #2 Plan: 1) NWB RLE 2) Lovenox for DVT prophylaxis 3) PMRU consult placed 4) Possible DC home tomorrow if he continues to refuse PMRU and rehab. Again we believe it would be in his best interest to go to rehab. It was discussed that he could end up with an amputation if this does not heal or should worsen.
--- NOTE | 2017-12-15 14:18 | PN ---
Subjective Date of Service: 12/15/17 Interval History: Mr. Wells is feeling "okay" today though is not particularly interested in speaking with me as he wanted to nap. He reports that his plan is to return home tomorrow. He is not interested in rehab and feels as though he can manage at home. He denies pain. Denies CP, SOB, N/V/D, dizziness. Family History: Unchanged from Admission Social History: Unchanged from Admission Past Medical History: Unchanged from Admission Objective Active Medications: Acetaminophen (Tylenol Tab*) 650 mg PO Q6H PRN Amlodipine Besylate (Norvasc Tab*) 2.5 mg PO QAM KENAN Ascorbic Acid (Vitamin C Tab*) 1,000 mg PO QAM KENAN Docusate Sodium (Colace Cap*) 100 mg PO BID KENAN Enoxaparin Sodium (Lovenox(*)) 40 mg SUBCUT Q24H KENAN Glipizide (Glucotrol Tab*) 2.5 mg PO ONCE ONE Cefazolin Sodium/Dextrose (Kefzol 1 Gm In Dextrose Duplex (*)) 1 gm in 50 mls @ 200 mls/hr IVPB Q8H KENAN Magnesium Hydroxide (Milk Of Magnesia Liq*) 30 ml PO BID PRN Metoprolol Tartrate (Lopressor Tab*) 50 mg PO BID KENAN Multivitamins/Minerals (Theragran/Minerals Tab*) 1 tab PO DAILY KENAN Oxycodone HCl (Roxycodone Tab*) 5 mg PO Q4H PRN Polyethylene Glycol/Electrolytes (Miralax*) 17 gm PO DAILY PRN Senna (Senokot Tab*) 1 tab PO BEDTIME PRN Terazosin HCl (Hytrin Cap*) 5 mg PO BEDTIME [facility] Vital Signs - 8 hr 12/15/17 12/15/17 07:31 08:48 Temperature 98.2 F Pulse Rate 76 Respiratory 18 18 Rate Blood Pressure 120/75 (mmHg) O2 Sat by Pulse 95 Oximetry Oxygen Devices in Use Now: None Appearance: Elderly male laying in bed in NAD; external fixation to right ankle Eyes: No Scleral Icterus Ears/Nose/Mouth/Throat: Mucous Membranes Moist Neck: NL Appearance and Movements; NL JVP Respiratory: Symmetrical Chest Expansion and Respiratory Effort, Clear to Auscultation Cardiovascular: NL Sounds; No Murmurs; No JVD, RRR Abdominal: NL Sounds; No Tenderness; No Distention, No Hepatosplenomegaly Extremities: No Clubbing, Cyanosis Skin: - - Surgical dressing in place to RLE with external fixation Neurological: Alert and Oriented x 3 Lines/Tubes/Other Access: Clean, Dry and Intact Peripheral IV Nutrition: Taking PO's Result Diagrams: 12/15/17 05:40 12/15/17 05:40 Assess/Plan/Problems-Billing Assessment: Patient is an 82yo male with a PMH for DM II, Cardiomyopathy, HTN, LBKA, TAA, who resents with right comminuted ankle fracture and is S/P external fixator placement without other active medical problem or known complication. - Patient Problems (1) Closed right ankle fracture Current Visit: Yes Status: Acute Priority: High Code(s): S82.891A - OTH FRACTURE OF RIGHT LOWER LEG, INIT FOR CLOS FX SNOMED Code(s): 17864138 Comment: - S/P External fixator placement - Management per ortho - NWB at this time - Pain control, PT/OT, Bowel regimen (2) Status post below knee amputation of left lower extremity Current Visit: Yes Status: Chronic Priority: High Code(s): Z89.512 - ACQUIRED ABSENCE OF LEFT LEG BELOW KNEE SNOMED Code(s): 065455165041635 Comment: - Due to non-healing wound - High index of concern for complications in RLE (3) Diabetes Current Visit: Yes Status: Chronic Priority: Medium Code(s): E11.9 - TYPE 2 DIABETES MELLITUS WITHOUT COMPLICATIONS SNOMED Code(s): 80626065 Comment: - Refuses blood glucose montioring with meals - Refuses insulin therapy - A1c 5.8% - Resume Glipizide (4) Hypertension Current Visit: Yes Status: Chronic Priority: Medium Code(s): I10 - ESSENTIAL (PRIMARY) HYPERTENSION SNOMED Code(s): 31746021 Comment: - BP well controlled - Continue metoprolol, amlodipine and terazosin (5) Cardiomyopathy Current Visit: Yes Status: Chronic Priority: Medium Code(s): I42.9 - CARDIOMYOPATHY, UNSPECIFIED SNOMED Code(s): 82838218 Comment: - EF 45% most recently - No signs of acute exacerbation (6) Full code status Current Visit: Yes Status: Acute Priority: High Code(s): Z78.9 - OTHER SPECIFIED HEALTH STATUS SNOMED Code(s): 317768340 (7) DVT prophylaxis Current Visit: Yes Status: Acute Priority: High Code(s): OBQ6408 - SNOMED Code(s): 396119116 Comment: -Continue lovenox Status and Disposition: Inpatient. GIGI recommended, though patient is refusing rehab and would like to return home.
[2017-12-15] MEDS ORDERED: glipiZIDE TAB* 5 MG PO ONE (15:00)
[2017-12-15] MEDS: Terazosin CAP* 5 MG PO SCH (20:48)
[2017-12-16] MEDS: CEFAZOLIN 1 GM IVPB SCH ×2 (03:56→13:49)
[2017-12-16] MEDS: [UNRECOGNIZED DRUG - OTHER] IVPB SCH ×2 (03:56→13:49)
[2017-12-16] MEDS: Metoprolol Tartrate TAB* 50 mg PO SCH ×2 (09:03→20:16)
[2017-12-16] MEDS: amLODIPine TAB* 5 MG PO SCH (09:03)
[2017-12-16] MEDS: Ascorbic Acid TAB* 500 MG PO SCH (09:04)
[2017-12-16] MEDS: Docusate CAP* 100 MG PO SCH ×2 (09:05→20:17)
[2017-12-16] MEDS: Multivitamins/Minerals TAB PO SCH (09:05)
[2017-12-16] MEDS: glipiZIDE TAB.XL* 2.5 MG PO SCH (09:05)
--- NOTE | 2017-12-16 10:09 | PN ---
Progress Note - Progress Note Date of Service: 12/16/17 SOAP: Subjective: resting comfortably with no complaints Objective: Vital Signs Temp Pulse Resp BP Pulse Ox 98.7 F 73 18 130/54 96 12/16/17 03:59 12/16/17 07:59 12/16/17 08:00 12/16/17 07:59 12/16/17 07:59 Laboratory Last Values WBC 7.4 10^3/ul (3.5-10.8) 12/15/17 05:40 RBC 3.33 10^6/ul (4.00-5.40) L 12/15/17 05:40 Hgb 10.5 g/dl (14.0-18.0) L 12/15/17 05:40 Hct 31 % (42-52) L 12/15/17 05:40 MCV 92 fL (80-94) 12/15/17 05:40 MCH 32 pg (27-31) H 12/15/17 05:40 MCHC 34 g/dl (31-36) 12/15/17 05:40 RDW 14 % (10.5-15) 12/15/17 05:40 Plt Count 285 10^3/ul (150-450) 12/15/17 05:40 MPV 6.6 um3 (7.4-10.4) L 12/15/17 05:40 Neut % (Auto) 75.2 % (38-83) 12/15/17 05:40 Lymph % (Auto) 10.6 % (25-47) L 12/15/17 05:40 Baker % (Auto) 11.2 % (0-7) H 12/15/17 05:40 Eos % (Auto) 2.6 % (0-6) 12/15/17 05:40 Baso % (Auto) 0.4 % (0-2) 12/15/17 05:40 Absolute Neuts (auto) 5.5 10^3/ul (1.5-7.7) 12/15/17 05:40 Absolute Lymphs (auto) 0.8 10^3/ul (1.0-4.8) L 12/15/17 05:40 Absolute Monos (auto) 0.8 10^3/ul (0-0.8) 12/15/17 05:40 Absolute Eos (auto) 0.2 10^3/ul (0-0.6) 12/15/17 05:40 Absolute Basos (auto) 0 10^3/ul (0-0.2) 12/15/17 05:40 Absolute Nucleated RBC 0 10^3/ul 12/15/17 05:40 Nucleated RBC % 0 12/15/17 05:40 INR (Anticoag Therapy) 0.99 (0.77-1.02) 12/12/17 12:27 APTT 32.4 seconds (26.0-36.3) 12/12/17 12:27 Sodium 135 mmol/L (135-145) 12/15/17 05:40 Potassium 4.0 mmol/L (3.5-5.0) 12/15/17 05:40 Chloride 105 mmol/L (101-111) 12/15/17 05:40 Carbon Dioxide 23 mmol/L (22-32) 12/15/17 05:40 Anion Gap 7 mmol/L (2-11) 12/15/17 05:40 BUN 24 mg/dL (6-24) 12/15/17 05:40 Creatinine 1.61 mg/dL (0.67-1.17) H 12/15/17 05:40 Est GFR ( Amer) 50.2 (>60) 12/15/17 05:40 Est GFR (Non-Af Amer) 41.5 (>60) 12/15/17 05:40 BUN/Creatinine Ratio 14.9 (8-20) 12/15/17 05:40 Glucose 137 mg/dL (70-100) H 12/15/17 05:40 Hemoglobin A1c 5.8 % (4.0-5.6) H 12/12/17 12:27 Lactic Acid 0.7 mmol/L (0.5-2.0) 12/12/17 12:27 Calcium 8.5 mg/dL (8.6-10.3) L 12/15/17 05:40 Magnesium 1.9 mg/dL (1.9-2.7) 12/15/17 05:40 Total Bilirubin 0.60 mg/dL (0.2-1.0) 12/12/17 12:27 AST 15 U/L (13-39) 12/12/17 12:27 ALT 8 U/L (7-52) 12/12/17 12:27 Alkaline Phosphatase 58 U/L (34-104) 12/12/17 12:27 CK-MB (CK-2) 2.3 ng/mL (0.6-6.3) 12/12/17 12:27 Troponin I 0.01 ng/mL (<0.04) 12/12/17 12:27 Total Protein 6.9 g/dL (6.4-8.9) 12/12/17 12:27 Albumin 4.0 g/dL (3.2-5.2) 12/12/17 12:27 Globulin 2.9 g/dL (2-4) 12/12/17 12:27 Albumin/Globulin Ratio 1.4 (1-3) 12/12/17 12:27 Blood Type A Negative 12/12/17 12:27 Antibody Screen Negative 12/12/17 12:27 incision: c/d PE: NVI Assessment: s/p ex-fix placement right LE Plan: PT/OT- NWB RLE continue DVT prophyalxis hospitalist co-managing We strongly recommend SNF placement but patient is refusing; F/U with either Dr. Witt or Sean next week
[2017-12-16] MEDS: Enoxaparin(*) 40 MG/0.4 ML SYR SUBCUT SCH (12:48)
[2017-12-16] MEDS ORDERED: CEFAZOLIN 1 GM IVPB SCH (14:00)
[2017-12-16] MEDS ORDERED: [UNRECOGNIZED DRUG - OTHER] IVPB SCH (14:00)
--- NOTE | 2017-12-16 15:44 | PN ---
Subjective Date of Service: 12/16/17 Interval History: Mr. Wells is not feeling well this morning as he would like to return home. The patient is frustrated about recommendations for rehab. He became tearful and started yelling during our conversation. He would like to return home with his and is not concerned about weight bearing status or inability to ambulate and perform ADLs. When advised that he would need to sign out AMA if he wanted to leave today, he was agreeable to speaking with case management about rehab. He is concerned about the cost, but states he understands the concerns from a medical standpoint. He denies pain to the RLE. Denies CP, SOB, N /V/D, dizziness. Family History: Unchanged from Admission Social History: Unchanged from Admission Past Medical History: Unchanged from Admission Objective Active Medications: Acetaminophen (Tylenol Tab*) 650 mg PO Q6H PRN Amlodipine Besylate (Norvasc Tab*) 2.5 mg PO QAM KENAN Ascorbic Acid (Vitamin C Tab*) 1,000 mg PO QAM KENAN Docusate Sodium (Colace Cap*) 100 mg PO BID KENAN Enoxaparin Sodium (Lovenox(*)) 40 mg SUBCUT Q24H KENAN Glipizide (Glucotrol Xl*) 2.5 mg PO QAM KENAN Cefazolin Sodium 1 gm/ Sodium (Chloride) 100 mls @ 400 mls/hr IVPB Q8HR KENAN Magnesium Hydroxide (Milk Of Magnesia Liq*) 30 ml PO BID PRN Metoprolol Tartrate (Lopressor Tab*) 50 mg PO BID KENAN Multivitamins/Minerals (Theragran/Minerals Tab*) 1 tab PO DAILY KENAN Oxycodone HCl (Roxycodone Tab*) 5 mg PO Q4H PRN Polyethylene Glycol/Electrolytes (Miralax*) 17 gm PO DAILY PRN Senna (Senokot Tab*) 1 tab PO BEDTIME PRN Terazosin HCl (Hytrin Cap*) 5 mg PO BEDTIME KENAN Vital Signs - 8 hr 12/16/17 12/16/17 12/16/17 07:59 08:00 11:39 Pulse Rate 73 63 Respiratory 16 16 18 Rate Blood Pressure 130/54 122/63 (mmHg) O2 Sat by Pulse 96 98 Oximetry Oxygen Devices in Use Now: None Appearance: Elderly male sitting in bed in NAD; anxious Eyes: No Scleral Icterus Ears/Nose/Mouth/Throat: Mucous Membranes Moist Neck: NL Appearance and Movements; NL JVP Respiratory: Symmetrical Chest Expansion and Respiratory Effort, Clear to Auscultation Cardiovascular: NL Sounds; No Murmurs; No JVD, RRR Abdominal: NL Sounds; No Tenderness; No Distention Extremities: No Clubbing, Cyanosis Skin: - - Surgical dressing and external fixation to R foot Neurological: Alert and Oriented x 3, NL Sensation Lines/Tubes/Other Access: Clean, Dry and Intact Peripheral IV Nutrition: Taking PO's Result Diagrams: 12/15/17 05:40 12/15/17 05:40 Assess/Plan/Problems-Billing Assessment: Patient is an 82yo male with a PMH for DM II, Cardiomyopathy, HTN, LBKA, TAA, who resents with right comminuted ankle fracture and is S/P external fixator placement and will require rehab. - Patient Problems (1) Closed right ankle fracture Current Visit: Yes Status: Acute Priority: High Code(s): S82.891A - OTH FRACTURE OF RIGHT LOWER LEG, INIT FOR CLOS FX SNOMED Code(s): 55823593 Comment: - S/P External fixator placement - Management per ortho - NWB at this time - Pain control, PT/OT, Bowel regimen (2) Status post below knee amputation of left lower extremity Current Visit: Yes Status: Chronic Priority: High Code(s): Z89.512 - ACQUIRED ABSENCE OF LEFT LEG BELOW KNEE SNOMED Code(s): 413323837858803 Comment: - Due to previous non-healing wound - High index of concern for complications in RLE (3) Diabetes Current Visit: Yes Status: Chronic Priority: Medium Code(s): E11.9 - TYPE 2 DIABETES MELLITUS WITHOUT COMPLICATIONS SNOMED Code(s): 59421079 Comment: - Refuses blood glucose montioring with meals - Refuses insulin therapy - A1c 5.8% - Resume Glipizide (4) Hypertension Current Visit: Yes Status: Chronic Priority: Medium Code(s): I10 - ESSENTIAL (PRIMARY) HYPERTENSION SNOMED Code(s): 68080289 Comment: - BP well controlled - Continue metoprolol, amlodipine and terazosin (5) Cardiomyopathy Current Visit: Yes Status: Chronic Priority: Medium Code(s): I42.9 - CARDIOMYOPATHY, UNSPECIFIED SNOMED Code(s): 35350185 Comment: - EF 45% most recently - No signs of acute exacerbation (6) Full code status Current Visit: Yes Status: Acute Priority: High Code(s): Z78.9 - OTHER SPECIFIED HEALTH STATUS SNOMED Code(s): 401217328 (7) DVT prophylaxis Current Visit: Yes Status: Acute Priority: High Code(s): XXN3890 - SNOMED Code(s): 661067864 Comment: -Continue lovenox Status and Disposition: Inpatient. GIGI recommended - patient is agreeable to considering this and case management is involved.
[2017-12-16] MEDS: Terazosin CAP* 5 MG PO SCH (20:16)
[2017-12-16] MEDS: CEFAZOLIN IVPB SCH ×2 (21:56)
[2017-12-16] MEDS: NS 0.9% IVPB SCH ×2 (21:56)
[2017-12-16] MEDS: ADVAN IVPB SCH ×2 (21:56)
[2017-12-17] MEDS: ADVAN IVPB SCH ×2 (05:35)
[2017-12-17] MEDS: CEFAZOLIN IVPB SCH ×2 (05:35)
[2017-12-17] MEDS: NS 0.9% IVPB SCH ×2 (05:35)
[2017-12-17] MEDS: Metoprolol Tartrate TAB* 50 mg PO SCH ×2 (09:16→21:30)
[2017-12-17] MEDS: amLODIPine TAB* 5 MG PO SCH (09:16)
[2017-12-17] MEDS: Multivitamins/Minerals TAB PO SCH (09:16)
[2017-12-17] MEDS: glipiZIDE TAB.XL* 2.5 MG PO SCH (09:16)
[2017-12-17] MEDS: Ascorbic Acid TAB* 500 MG PO SCH (09:16)
[2017-12-17] MEDS: Docusate CAP* 100 MG PO SCH ×2 (09:18→21:30)
[2017-12-17] MEDS ORDERED: NS 0.9% 50 ML* 50 ML with ceFAZolin 1 GM ADVAN(*) 1 GM IVPB SCH ×2 (10:33)
--- NOTE | 2017-12-17 10:41 | PN ---
Progress Note - Progress Note Date of Service: 12/17/17 SOAP: Subjective: Right ankle pilon fx, doing well. No pain. Denies CP/SOB, f/c. Pt to OR tomorrow for hindfoot nail. Objective: Vitals: Temp Pulse Resp BP Pulse Ox 98.4 F 93 18 143/75 99 12/17/17 09:26 12/17/17 09:26 12/17/17 09:26 12/17/17 09:26 12/17/17 09:26 Gen: A&Ox3, NAD at rest laying in bed RLE: Dressing and ex-fix C/D/I. +f/e at MTPs. Sensation decreased due to peripheral neuropathy. Good cap refill. Assessment: Right ankle pilon fx Plan: NPO after MN for OR tomorrow Cont. NWB RLE
[2017-12-17] MEDS: Enoxaparin(*) 40 MG/0.4 ML SYR SUBCUT SCH (11:26)
[2017-12-17] MEDS: NS 0.9% 50 ML* 50 ML with ceFAZolin 1 GM ADVAN(*) 1 GM IVPB SCH ×4 (14:48→21:51)
--- NOTE | 2017-12-17 15:02 | PN ---
Subjective Date of Service: 12/17/17 Interval History: Mr. Wells is in good spirits today. His is at bedside on my exam. He offers no complaints. Denies pain, CP, SOB, N/V/D, dizziness. He is still agreeable to GIGI after d/c from the hospital. He has been working with case management on this. Family History: Unchanged from Admission Social History: Unchanged from Admission Past Medical History: Unchanged from Admission Objective Active Medications: Acetaminophen (Tylenol Tab*) 650 mg PO Q6H PRN Amlodipine Besylate (Norvasc Tab*) 2.5 mg PO QAM KENAN Ascorbic Acid (Vitamin C Tab*) 1,000 mg PO QAM KENAN Docusate Sodium (Colace Cap*) 100 mg PO BID KENAN Enoxaparin Sodium (Lovenox(*)) 40 mg SUBCUT Q24H KENAN Glipizide (Glucotrol Xl*) 2.5 mg PO QAM KENAN Cefazolin Sodium 1 gm/ Sodium (Chloride) 50 mls @ 200 mls/hr IVPB 0600,1400, 2200 KENAN Lactated Ringer's (Lactated Ringers 1000 Ml Bag*) 1,000 mls @ 125 mls/hr IV PER RATE KENAN Magnesium Hydroxide (Milk Of Magnmilan Liq*) 30 ml PO BID PRN Metoprolol Tartrate (Lopressor Tab*) 50 mg PO BID KENAN Multivitamins/Minerals (Theragran/Minerals Tab*) 1 tab PO DAILY KENAN Oxycodone HCl (Roxycodone Tab*) 5 mg PO Q4H PRN Polyethylene Glycol/Electrolytes (Miralax*) 17 gm PO DAILY PRN Senna (Senokot Tab*) 1 tab PO BEDTIME PRN Terazosin HCl (Hytrin Cap*) 5 mg PO BEDTIME KENAN Vital Signs - 8 hr 12/17/17 12/17/17 08:00 09:26 Temperature 98.4 F Pulse Rate 93 Respiratory 18 18 Rate Blood Pressure 143/75 (mmHg) O2 Sat by Pulse 99 Oximetry Oxygen Devices in Use Now: None Appearance: Elderly male sitting in bed in NAD Eyes: No Scleral Icterus Ears/Nose/Mouth/Throat: Mucous Membranes Moist Neck: NL Appearance and Movements; NL JVP Respiratory: Symmetrical Chest Expansion and Respiratory Effort, Clear to Auscultation Cardiovascular: NL Sounds; No Murmurs; No JVD, RRR Abdominal: NL Sounds; No Tenderness; No Distention Extremities: No Clubbing, Cyanosis Skin: - - External fixation in place to R foot Neurological: Alert and Oriented x 3 Lines/Tubes/Other Access: Clean, Dry and Intact Peripheral IV Nutrition: Taking PO's Result Diagrams: 12/15/17 05:40 12/15/17 05:40 Assess/Plan/Problems-Billing Assessment: Patient is an 82yo male with a PMH for DM II, Cardiomyopathy, HTN, LBKA, TAA, who resents with right comminuted ankle fracture and is S/P external fixator placement and will require rehab. - Patient Problems (1) Closed right ankle fracture Current Visit: Yes Status: Acute Priority: High Code(s): S82.891A - OTH FRACTURE OF RIGHT LOWER LEG, INIT FOR CLOS FX SNOMED Code(s): 68105966 Comment: - S/P External fixator placement - Management per ortho - Abx per ortho - NWB at this time - Pain control, PT/OT, Bowel regimen (2) Status post below knee amputation of left lower extremity Current Visit: Yes Status: Chronic Priority: High Code(s): Z89.512 - ACQUIRED ABSENCE OF LEFT LEG BELOW KNEE SNOMED Code(s): 251006384296996 Comment: - Due to previous non-healing wound - High index of concern for complications in RLE (3) Diabetes Current Visit: Yes Status: Chronic Priority: Medium Code(s): E11.9 - TYPE 2 DIABETES MELLITUS WITHOUT COMPLICATIONS SNOMED Code(s): 19249502 Comment: - Refuses blood glucose montioring with meals - Refuses insulin therapy - A1c 5.8% - Resume Glipizide (4) Hypertension Current Visit: Yes Status: Chronic Priority: Medium Code(s): I10 - ESSENTIAL (PRIMARY) HYPERTENSION SNOMED Code(s): 96609851 Comment: - BP well controlled - Continue metoprolol, amlodipine and terazosin (5) Cardiomyopathy Current Visit: Yes Status: Chronic Priority: Medium Code(s): I42.9 - CARDIOMYOPATHY, UNSPECIFIED SNOMED Code(s): 49791635 Comment: - EF 45% most recently - No signs of acute exacerbation (6) Full code status Current Visit: Yes Status: Acute Priority: High Code(s): Z78.9 - OTHER SPECIFIED HEALTH STATUS SNOMED Code(s): 476059341 (7) DVT prophylaxis Current Visit: Yes Status: Acute Priority: High Code(s): YGQ8358 - SNOMED Code(s): 309028035 Comment: -Continue lovenox Status and Disposition: Inpatient. GIGI recommended - patient is agreeable to considering this and case management is involved. Plan to go to the OR in the morning. Stable for d/c from Hospital Medicine standpoint.
[2017-12-17] MEDS: Terazosin CAP* 5 MG PO SCH (21:30)
[2017-12-18] MEDS: NS 0.9% 50 ML* 50 ML with ceFAZolin 1 GM ADVAN(*) 1 GM IVPB SCH ×6 (05:58→22:06)
[2017-12-18] MEDS: glipiZIDE TAB.XL* 2.5 MG PO SCH (07:22)
[2017-12-18] MEDS: Docusate CAP* 100 MG PO SCH ×2 (08:23→22:03)
[2017-12-18] MEDS: Metoprolol Tartrate TAB* 50 mg PO SCH ×2 (08:28→22:03)
[2017-12-18] MEDS: amLODIPine TAB* 5 MG PO SCH (08:28)
[2017-12-18] MEDS: Ascorbic Acid TAB* 500 MG PO SCH (08:28)
[2017-12-18] MEDS: Multivitamins/Minerals TAB PO SCH (08:38)
[2017-12-18] MEDS: Enoxaparin(*) 40 MG/0.4 ML SYR SUBCUT SCH (10:18)
--- NOTE | 2017-12-18 13:39 | PN ---
Subjective Date of Service: 12/18/17 Interval History: Mr. Joiner offers no complaints today. He feels well and is awaiting surgery planned for 1400. He denies pain. Denies CP, SOB, N/V/D, dizziness. Looking forward to d/c when he is cleared by ortho. Family History: Unchanged from Admission Social History: Unchanged from Admission Past Medical History: Unchanged from Admission Objective Active Medications: Acetaminophen (Tylenol Tab*) 650 mg PO Q6H PRN Amlodipine Besylate (Norvasc Tab*) 2.5 mg PO QAM KENAN Ascorbic Acid (Vitamin C Tab*) 1,000 mg PO QAM KENAN Docusate Sodium (Colace Cap*) 100 mg PO BID KENAN Enoxaparin Sodium (Lovenox(*)) 40 mg SUBCUT Q24H KENAN Glipizide (Glucotrol Xl*) 2.5 mg PO QAM KENAN Cefazolin Sodium 1 gm/ Sodium (Chloride) 50 mls @ 200 mls/hr IVPB 0600,1400, 2200 KENAN Lactated Ringer's (Lactated Ringers 1000 Ml Bag*) 1,000 mls @ 125 mls/hr IV PER RATE KENAN Magnesium Hydroxide (Milk Of Magnesia Liq*) 30 ml PO BID PRN Metoprolol Tartrate (Lopressor Tab*) 50 mg PO BID KENAN Multivitamins/Minerals (Theragran/Minerals Tab*) 1 tab PO DAILY KENAN Oxycodone HCl (Roxycodone Tab*) 5 mg PO Q4H PRN Polyethylene Glycol/Electrolytes (Miralax*) 17 gm PO DAILY PRN Senna (Senokot Tab*) 1 tab PO BEDTIME PRN Terazosin HCl (Hytrin Cap*) 5 mg PO BEDTIME [facility] Vital Signs - 8 hr 12/18/17 12/18/17 12/18/17 07:35 08:00 11:19 Temperature 97.6 F 97.8 F Pulse Rate 61 66 Respiratory 16 18 18 Rate Blood Pressure 122/53 131/65 (mmHg) O2 Sat by Pulse 98 97 Oximetry Oxygen Devices in Use Now: None Appearance: Elderly male laying in bed in NAD Eyes: No Scleral Icterus Ears/Nose/Mouth/Throat: Mucous Membranes Moist Neck: NL Appearance and Movements; NL JVP Respiratory: Symmetrical Chest Expansion and Respiratory Effort, Clear to Auscultation Cardiovascular: NL Sounds; No Murmurs; No JVD, RRR Abdominal: NL Sounds; No Tenderness; No Distention Extremities: No Clubbing, Cyanosis Skin: - - External fixation in place to right foot Neurological: Alert and Oriented x 3 Lines/Tubes/Other Access: Clean, Dry and Intact Peripheral IV Nutrition: - - NPO Result Diagrams: 12/15/17 05:40 12/15/17 05:40 Assess/Plan/Problems-Billing Assessment: Patient is an 82yo male with a PMH for DM II, Cardiomyopathy, HTN, LBKA, TAA, who resents with right comminuted ankle fracture and is S/P external fixator placement and will require rehab. - Patient Problems (1) Closed right ankle fracture Current Visit: Yes Status: Acute Priority: High Code(s): S82.891A - OTH FRACTURE OF RIGHT LOWER LEG, INIT FOR CLOS FX SNOMED Code(s): 23883781 Comment: - S/P External fixator placement - Management and abx per ortho - NWB at this time - Pain control, PT/OT, bowel regimen - OR today (2) Status post below knee amputation of left lower extremity Current Visit: Yes Status: Chronic Priority: High Code(s): Z89.512 - ACQUIRED ABSENCE OF LEFT LEG BELOW KNEE SNOMED Code(s): 070958131597863 Comment: - Due to previous non-healing wound - High index of concern for complications in RLE (3) Diabetes Current Visit: Yes Status: Chronic Priority: Medium Code(s): E11.9 - TYPE 2 DIABETES MELLITUS WITHOUT COMPLICATIONS SNOMED Code(s): 38401909 Comment: - Refuses blood glucose montioring and insulin - A1c 5.8% - Continue Glipizide (4) Hypertension Current Visit: Yes Status: Chronic Priority: Medium Code(s): I10 - ESSENTIAL (PRIMARY) HYPERTENSION SNOMED Code(s): 44511643 Comment: - BP well controlled - Continue metoprolol, amlodipine and terazosin (5) Cardiomyopathy Current Visit: Yes Status: Chronic Priority: Medium Code(s): I42.9 - CARDIOMYOPATHY, UNSPECIFIED SNOMED Code(s): 39812619 Comment: - EF 45% most recently - No signs of acute exacerbation (6) Full code status Current Visit: Yes Status: Acute Priority: High Code(s): Z78.9 - OTHER SPECIFIED HEALTH STATUS SNOMED Code(s): 900859016 (7) DVT prophylaxis Current Visit: Yes Status: Acute Priority: High Code(s): - SNOMED Code(s): 957230381 Comment: -Continue lovenox Status and Disposition: Inpatient. GIGI recommended - patient is agreeable to considering this and case management is involved. Plan to go to the OR today. Stable for d/c from Hospital Medicine standpoint. Awaiting clearance from ortho.
[2017-12-18] MEDS ORDERED: fentaNYL* 50 MCG/ML 2 ML VIAL (100 MCG VIAL) ONE (14:25)
[2017-12-18] MEDS ORDERED: Midazolam* 1 MG/ML 5 ML VIAL (5 MG) ONE (14:25)
[2017-12-18] MEDS ORDERED: Bupivacaine 0.5% SDV PF* 30ML VIAL ONE (15:36)
[2017-12-18] MEDS ORDERED: KETAMINE HCL* 50 MG/ML 10 ML VIAL ONE (16:21)
[2017-12-18] MEDS ORDERED: Propofol* 10 MG/ML 20 ML BTL IV PUSH ONE (16:27)
[2017-12-18] MEDS ORDERED: Ondansetron INJ* 2 MG/ML VIAL ONE (16:27)
[2017-12-18] MEDS ORDERED: Dexamethasone IV* 4 MG/ML 1 ML (4 MG) ONE (16:27)
[2017-12-18] MEDS ORDERED: Ketorolac INJ* 30 MG/ML 1 ML VIAL ONE (16:27)
[2017-12-18] MEDS ORDERED: Bupivacaine-MPF SPINAL* 7.5 MG/ML - 2ML AMP ONE (16:28)
[2017-12-18] MEDS ORDERED: Lidocaine 2% PF * 5 ML VIAL ONE (16:28)
[2017-12-18] MEDS ORDERED: diPHENhydraMINE PO* 25 MG PO PRN (17:35)
[2017-12-18] MEDS ORDERED: Acetaminophen TAB* 325 MG PO PRN (18:33)
[2017-12-18] MEDS ORDERED: HYDROmorphone INJ1* 1 MG/ML SYRINGE IV PRN (18:33)
[2017-12-18] MEDS ORDERED: DiMENhydriNATE IV* 50 MG/ML VIAL IV PUSH PRN (18:33)
--- NOTE | 2017-12-18 18:43 | OP ---
Operative Report - Blank - Operative Report Date of Operation: 12/18/17 Note: PATIENT: Carlos Wells DATE OF : 1935 DATE OF SURGERY: 12/18/2017 SURGEON: Kana Schmid MD SPEECH PATHOLOGY ASSISTANT: Rafy Witt MD, whos assistance was necessary for positioning, retraction, help with instrumentation, and closure. ANESTHESIOLOGIST: Dr. 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 OPERATION: Right ankle and subtalar joint fusions with fibula bone autograft ANESTHESIA: Spinal IMPLANTS: Synthes TTC hindfoot fusion nail TOURNIQUET TIME: Less than 2 hours with a well-padded thigh tourniquet at 250mmHg SPECIMENS: culture swabs to micro ESTIMATED BLOOD LOSS: minimal COMPLICATIONS: none STATUS: Stable from the operating room to the recovery room and then back to the hospital floor INDICATIONS FOR PROCEDURE: Carlos has diabetic neuropathy with acute on chronic injury to his tibial plafond and fibula, likely a component of Charcot neuroarthropathy as well as trauma. Both operative and non-operative treatment alternatives were reviewed. Further, the nature and risks of surgery were reviewed in careful detail. Our discussions regarding the risks of surgery included, but were not limited to, infection, wound problems, nerve injury, neuroma, RSD, persistent symptoms, blood clot, nonunion, malunion, adjacent joint arthritis, stiffness, need for further surgery, failure of the surgery, and even the remote chance of catastrophic complication, including loss of limb or . DESCRIPTION OF PROCEDURE: The patient was seen in the preoperative holding unit and informed written consent was obtained. The appropriate extremity was marked. The patient was then brought to the operating room and carefully positioned on the operating room table. Anesthesia was induced. All bony prominences were padded with great care. A well-padded thigh tourniquet was placed. A chlorhexidine based pre- scrub was performed followed by a chloraprep prep and drape in standard sterile fashion. A surgical safety pause was then conducted in which we confirmed the appropriate patient, extremity, planned procedure, availability of equipment, indication and administration of prophylactic antibiotics, and DVT prophylaxis in the form of a compression boot on the non-surgical extremity. We began with an Esmarch exsanguination of the limb and inflated the tourniquet. A longitudinal lateral incision was made based over the fibula. Dissection was carried down to the fibula. The distal fibula was osteotomized and excised. The fibula was then cut into small pieces for bone grafting using a bone cutter. The ankle and subtalar joints were then exposed. Remaining cartilage was removed from the joint surfaces and the subchondral bone was then roughened and prepared for fusion with a 4 mm teri. The distal tibia fractures were provisionally reduced with a large pointed reduction clamp. A mixture of the fibular autograft bone graft as well as cancellous allograft chips were then packed into the ankle and subtalar joints. The ankle and subtalar joints were then manually reduced and then held provisionally with K wires. The guidewire for the Synthes hindfoot nail was then inserted through the plantar aspect of the heel and position was confirmed on fluoroscopy. This was then overdrilled with the opening reamer. The ball-tip guidewire was then passed up into the tibial shaft, and the placement was again confirmed on fluoroscopy. The tibial shaft was then sequentially reamed up to 13 mm. A 12 mm hindfoot nail was then inserted. Its placement was confirmed fluoroscopically. Interlocking screws were then placed into the calcaneus, talus, and tibia using the aiming guide. Final fluoroscopic images were then obtained. The wounds were then copiously irrigated and meticulously closed in layers utilizing 0 Vicryl, 2-0 Vicryl, 3-0 Monocryl and 3-0 nylon or odilon for the skin. A sterile dressing was then applied followed by a well-padded splint. The patient was then awakened from anesthesia and transferred to the recovery room in stable condition. There were no complications. All needle and sponge counts were correct at the end of the case. ATTESTATION: I attest I was present and scrubbed and performed the critical portions of the procedure myself. POSTOPERATIVE PLAN: The plan is for nonweightbearing for anticipated duration of 6-8 weeks. Follow-up will be in one week for a wound check.
[2017-12-18] MEDS: Acetaminophen TAB* 325 MG PO PRN (22:02)
[2017-12-18] MEDS: Terazosin CAP* 5 MG PO SCH (22:03)
[2017-12-18] MEDS: oxyCODONE TAB* 5 MG TAB PO PRN (22:03)
[2017-12-18] MEDS ORDERED: traMADol TAB* 50 MG PO PRN (22:27)
[2017-12-19] MEDS: oxyCODONE TAB* 5 MG TAB PO PRN ×2 (02:48→08:01)
[2017-12-19] MEDS: NS 0.9% 50 ML* 50 ML with ceFAZolin 1 GM ADVAN(*) 1 GM IVPB SCH ×2 (05:14)
[2017-12-19] MEDS: Acetaminophen TAB* 325 MG PO PRN (05:14)
[2017-12-19 05:24] LABS: Hematocrit 30 % (42-52); Mean Platelet Volume 6.6 um3 (7.4-10.4); Platelet Count 329 10^3/ul (150-450)
[2017-12-19 05:43] LABS: EGFR Non-African American 42.1 (>60)
[2017-12-19] MEDS: Multivitamins/Minerals TAB PO SCH (08:00)
[2017-12-19] MEDS: amLODIPine TAB* 5 MG PO SCH (08:00)
[2017-12-19] MEDS: glipiZIDE TAB.XL* 2.5 MG PO SCH (08:01)
[2017-12-19] MEDS: Docusate CAP* 100 MG PO SCH (08:01)
[2017-12-19] MEDS: Ascorbic Acid TAB* 500 MG PO SCH (08:01)
[2017-12-19] MEDS: Metoprolol Tartrate TAB* 50 mg PO SCH (08:02)
[2017-12-19] MEDS ORDERED: Enoxaparin(*) 40 MG/0.4 ML SYR SUBCUT SCH (12:00)
[2017-12-19 12:42] VITALS: BP 105/47
--- NOTE | 2017-12-19 12:59 | PN ---
Progress Note - Progress Note Date of Service: 12/19/17 SOAP: Subjective: []Patient seen sitting at edge of bed this am, denies significant foot/ ankle pain RLE. Denies SOB, CP, palpitations or dizziness. Ready to go to SNF today. Objective: [] Vital Signs Temp 98.6 F 12/19/17 11:14 Pulse 58 12/19/17 11:14 Resp 16 12/19/17 11:14 BP 105/47 12/19/17 11:14 Pulse Ox 93 12/19/17 11:14 Intake & Output 12/18/17 12/19/17 12/19/17 18:59 06:59 18:59 Intake Total 881 1520 Output Total 1000 580 400 Balance -119 940 -400 Intake: IV Fluids 881 1040 ABX - CEFAZOLIN 55 LR 881 985 Oral 0 480 Output: Urine 1000 580 400 Laboratory Results - last 24 hr 12/18/17 12/19/17 12/19/17 14:14 04:46 04:46 Hgb 10.0 L Hct 30 L Plt Count 329 MPV 6.6 L Sodium 136 Potassium 5.0 Chloride 103 Carbon Dioxide 28 Anion Gap 5 BUN 32 H Creatinine 1.59 H Est GFR ( Amer) 50.9 Est GFR (Non-Af Amer) 42.1 BUN/Creatinine Ratio 20.1 H Glucose 216 H POC Glucose (mg/dL) 70 Calcium 8.6 Right ankle dressings are c/d/i wiggles toes RLE, pink and warm Sensation grossly intact Assessment: []s/p pilon fracture right ankle, right ankle fusion POD #1 Plan: []NWB RLE 3 doses of IV cefazolin post op then may discontinue Do not remove dressings/ splint RLE SNF rehab discharge this afternoon Follow up with Dr. Schmid in 10-14 days
--- NOTE | 2017-12-19 13:06 | DS ---
AMENDED REPORT NOW INCLUDES DESIGNATED COSIGNER CC: Dr. Kinney; Dr. Schmid * DATE OF ADMISSION: 12/12/2017. DATE OF DISCHARGE: 12/19/2017. PRIMARY CARE PHYSICIAN: Dr. Kinney. ATTENDING PHYSICIAN: Dr. Ramsey * (dictated by Anika Cardenas NP). PRIMARY DIAGNOSIS: 1. Closed right ankle fracture. 2. 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 SECONDARY DIAGNOSES: 1. Diabetes mellitus type 2. 2. Hypertension. 3. Cardiomyopathy. STUDIES WHILE IN THE HOSPITAL: 1. Foot x-ray on 12/12/2017 reads as displaced fracture involving the right distal tibia and fibula. Incidentally noted is advanced calcified atherosclerosis of the visualized right lower arteries. 2. Lower extremity x-ray on 12/12/2017 reads as displaced fracture involving the right distal tibia and fibula. Incidentally noted is advanced calcified atherosclerosis of the visualized right lower arteries. 3. Ankle x-ray on 12/12/2017 reads as distal right tibia and fibular fracture with apparent disruption of the ankle. 4. Lower extremity CT on reads as comminuted fracture of the distal tibia with overriding of the fracture fragments with a large medial fragment and posterior fragment. Fracture of the distal fibula is also noted. 5. Chest x-ray on 12/12/2017 reads as no active cardiopulmonary disease. CONSULTATIONS WHILE IN THE HOSPITAL: Dr. Estrada saw the patient in consultation on 12/12/2017 for the right ankle fracture. He felt that though the injury was likely three weeks old and not acute, he planned a closed reduction and external fixation of the right ankle for the following day. HISTORY OF PRESENT ILLNESS AND HOSPITAL COURSE: Mr. 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 Please see the history and physical by Shell David NP for a complete summary of the events leading up to this hospitalization. In short, he reported that he had fallen approximately three weeks ago and had some mild right ankle pain, but was still able to ambulate normally. The day of admission, he developed more severe pain and presented to the emergency room for evaluation. While in the emergency room, it was noted that the patient had right distal tibia and fibular fractures as noted above and he was admitted by the Hospitalist Service. The patient was seen in consultation by Orthopedics as noted above. He was medically optimize for surgery by the Hospitalist Service. On 12/13/2017, the patient underwent a closed treatment of the right ankle fracture, placement of an external fixator and debridement of skin and subcutaneous tissue to the right medial forefoot wound. He tolerated surgery well and had no complications. He was seen by Physical and Occupational Therapy. He has been using a left lower extremity prosthesis, though continued to have difficulty ambulating as he was nonweightbearing on the right lower extremity. Initially, he was adamantly opposed to going to a [facility] for rehab, though eventually the patient agreed that rehab was likely the best option for him. On 12/18/2017, the patient went to the OR again with Dr. Schmid for a right ankle and subtalar joint fusion with fibular bone autograft. External fixation was removed at that time. The patient tolerated the procedure well and has had no complications. He remains nonweightbearing to the right lower extremity. On the day of discharge, the patient denies pain to the right foot. He reports feeling well and offers no complaints. His blood pressure has been well managed during this hospitalization with his home doses of Amlodipine and Metoprolol. He has required minimal narcotics for pain management. He initially was placed on sliding scale insulin, though the patient refused any insulin and blood glucose checks. He was started back on his home dose of Glipizide on 12/16/2017 and blood glucose has been ranging from 117 to 216. Of note, the patient's hemoglobin A1c on 12/12/2017 was 5.8 percent. His kidney function was at baseline, CKD stage 3. He is mildly anemic with an H and H of 10 and 30 on discharge, though this is likely postop related, and he remains asymptomatic. Mr. Wells is stable for discharge today. Vital signs are as follows: Temperature 99.0, heart rate 64, respiratory rate 18, oxygen saturation 94 percent on room air, blood pressure 107/51. MEDICATIONS: New home medications: 1. Acetaminophen 650 mg p.o. q.6 hours prn pain. 2. Docusate 100 mg p.o. b.i.d. 3. Milk of Magnesia 30 ml p.o. b.i.d. prn constipation. 4. MiraLax 17 gm p.o. daily prn constipation. 5. Senna one tab p.o. at bedtime prn constipation. 6. Tramadol 50 mg p.o. q.6 hours prn pain. Continued home medications: 1. Amlodipine 2.5 mg p.o. daily. 2. Ascorbic acid 1,000 mg p.o. daily. 3. Glipizide 2.5 mg p.o. daily. 4. Metoprolol Tartrate 50 mg p.o. b.i.d. 5. Multivitamin one tab p.o. daily. 6. Terazosin 5 mg p.o. at bedtime. DISCHARGE PLAN: Mr. Wells will be discharged to rehab at [facility]. ACTIVITY: As per Ortho. He will be nonweightbearing to the right lower extremity. DIET: Diabetic, consistent carbohydrate. WOUND CARE: As noted by Ortho is daily dressing changes and wound care for fixators. Please apply Betadine soaked sponges around fixations pins and rewrap with DIPESH wraps. FOLLOW-UP: He will follow-up with a provider at [facility] and should follow- up with his primary care provider thereafter. The patient should return to the emergency room or nearest hospital for any worsening of symptoms, shortness of breath, lightheadedness, dizziness, chest discomfort, high fevers, chills, night sweats, loss of consciousness or any other worrisome signs of symptoms. Please note: This discharge summary will also be used as the admitting history and physical for [facility]. This is a summarized report of a complex medical history and hospital stay. For further details, please see the entire medical record. TIME SPENT: Approximately 45 minutes were spent on this discharge, greater than half of that time was spent [id number] with the patient discussing discharge plans and instructions. ANIKA CARDENAS, TYRESE [id number]/[facility] #: [id number] AL[place]ERT[place]
== END 2017-12-19 14:45 | DRG 493 ==
LOC: ED 09:48 → OBSVTOIN 15:33 → SSU 15:33
PROVIDERS: ADMIT Internal Medicine; ATTEND Internal Medicine
PROC: 0SGH07Z Fusion of Right Tarsal Joint with Autologous Tissue Substitute, Open Approach (ICD-10-PCS; 2017-12-13)
PROC: 0QSJ35Z Reposition Right Fibula with External Fixation Device, Percutaneous Approach (ICD-10-PCS; 2017-12-13)
PROC: 0QSG35Z Reposition Right Tibia with External Fixation Device, Percutaneous Approach (ICD-10-PCS; 2017-12-13)
PROC: 0QPJX5Z Removal of External Fixation Device from Right Fibula, External Approach (ICD-10-PCS; 2017-12-13)
PROC: 0QPGX5Z Removal of External Fixation Device from Right Tibia, External Approach (ICD-10-PCS; 2017-12-13)
PROC: 0SGF07Z Fusion of Right Ankle Joint with Autologous Tissue Substitute, Open Approach (ICD-10-PCS; principal; 2017-12-13 10:00)
DX: S82.851A Displaced trimalleolar fracture of right lower leg, initial encounter for closed fracture (principal); I42.9 Cardiomyopathy, unspecified; E11.610 Type 2 diabetes mellitus with diabetic neuropathic arthropathy; S82.831A Other fracture of upper and lower end of right fibula, initial encounter for closed fracture; M14.671 Charcot's joint, right ankle and foot; K21.9 Gastro-esophageal reflux disease without esophagitis; E11.22 Type 2 diabetes mellitus with diabetic chronic kidney disease; I12.9 Hypertensive chronic kidney disease with stage 1 through stage 4 chronic kidney disease, or unspecified chronic kidney disease; N18.3 Chronic kidney disease, stage 3 (moderate); E11.40 Type 2 diabetes mellitus with diabetic neuropathy, unspecified; E11.319 Type 2 diabetes mellitus with unspecified diabetic retinopathy without macular edema; E11.21 Type 2 diabetes mellitus with diabetic nephropathy; D64.9 Anemia, unspecified; E66.9 Obesity, unspecified; I71.2 Thoracic aortic aneurysm, without rupture; W01.0XXA Fall on same level from slipping, tripping and stumbling without subsequent striking against object, initial encounter; Z79.84 Long term (current) use of oral hypoglycemic drugs; Z89.512 Acquired absence of left leg below knee; Z87.442 Personal history of urinary calculi; Z85.46 Personal history of malignant neoplasm of prostate; Z98.42 Cataract extraction status, left eye; Z98.41 Cataract extraction status, right eye; Z80.1 Family history of malignant neoplasm of trachea, bronchus and lung; Z92.3 Personal history of irradiation; Z82.0 Family history of epilepsy and other diseases of the nervous system; Z87.891 Personal history of nicotine dependence; Z72.89 Other problems related to lifestyle; Y92.009 Unspecified place in unspecified non-institutional (private) residence as the place of occurrence of the external cause; Z68.27 Body mass index [BMI] 27.0-27.9, adult
CPT/HCPCS: 36415; 71045; 76000; 76001; 80048; 80053; 82553; 83036; 83605; 83735; 84484; 85014; 85018; 85025; 85049; 85610; 85730; 86850; 86900; 86901; 87070; 87073; 87205; 90686; 90732; 93005; 99282; A9270-GY; C1713; C1769; C1776; G8978-GP-CL; G8979-GP-CJ; G8987-GO-CL; G8988-GO-CI; J0690; J1100; J1644; J1650; J1885; J2250; J2405; J2704; J3010

== ENCOUNTER 2018-03-30 11:58 | Inpatient (IN) | payer MEDICARE ==
--- OUTSIDE RECORDS SUMMARY | 2018-03-30 12:30 | XMS REPORT | Continuity of Care Document ---
:1935 External Reference #:[id number] Author Name Deonna Solano Care Team Providers Name Role Phone Pooja Kinney MD Primary Care Physician Unavailable Payers Type Date Identification Numbers Payment Provider Subscriber Policy Number: [id number] [facility] Ins Ppo/Epo Edgar Wells PayID: [id number] [address] [place] [address] Effective: 2015 Policy Number: [facility] Today Edgar Wells [id number] Options Expires: 2016 PayID: [id number] [address] [address] Attn: [place] [address] Expires: 2015 Policy Number: [id number] [employer] Edgar Wells Group Number: [id number] [address] PayID: [id number] [place] [address] Expires: 2013 Policy Number: [id number] [employer] Edgar Wells Group Number: [id number] [address] PayID: [id number] [place] [address] Expires: 2008 Policy Number: [id number] [facility] Edgar Wells (Oon) Group Number: [id number] [address] PayID: [id number] [place] [address] Advance Directives Description No Information Available Problems Date Description Provider Status Onset: 12/14/2013 Diabetes mellitus Govind Guerra M.D. 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 Active Onset: 12/12/2017 Essential hypertension Shell David N.P. Active Onset: 12/13/2017 Cardiomyopathy, unspecified ERWIN Velazquez Active Family History Description No Information Available Social History Type Date Description Comments Sex Unknown Lives With Occupation Retired ETO[employer] Use Occasionally consumes alcohol Tobacco Use Start: Unknown End: Patient is a former 2 1/2 ppd - quit 25 Unknown smoker years ago Smoking Status Reviewed: 03/24/18 Patient is a former 2 1/2 ppd - quit 25 smoker years ago Exercise Exercises regularly Type/Frequency Allergies, Adverse Reactions, Alerts Description No Known Drug Allergies Medications Medication Date Status Form Strength Qnty SIG Indications Ordering Provider Wheelchair 01/06 Active [facility] 1unit 1 - 18" S82.891D s standard Eduar wheelchair to Rebeca use for ankle fixation ht: 72" wt: 198 lbs Metoprolol Active Tablets 50mg 1 by mouth Unknown Tartrate twice a day Glipizide XL Active Tablets ER 2.5mg 1 by mouth Unknown 24HR every day Terazosin HCL Active Capsules 5mg 1 by mouth Unknown / every day Multi Vitamin Active Tablets 1 po qd Unknown Daily Vitamin C Active Tablets 1000mg 1 by mouth Unknown / every day Amlodipine Active Tablets 2.5mg 1 by mouth Unknown Besylate every day Docusate Active Capsules 100mg 1 tab every Unknown Sodium 0000 12 hours as needed for constipation Milk Of Active Suspension 400mg/5ML 30ml by mouth Unknown Magnesia / every day as needed Polyethylene Active Powder 1450 17 grams mix Unknown Glycol with 6oz of water and drink once a day Senna Active Unknown /0000 Tramadol HCL Active Tablets 50mg 1-2 tablets Unknown /0000 by mouth every 6 hours as needed pain Tylenol Active Tablets 325mg take 2 tabs Unknown /0000 as needed every 6 hours for pain/fever Cephalexin 09/25 Hx Tablets 500mg 30tab 1 by mouth L97.821 s three times a D. - day [facility] [place], 10/20. Cephalexin 08/22 Hx Tablets 500mg 30tab 1 by mouth T87.44 s three times a D. - day [facility] [place], 09/02. Linezolid 06/24 Hx Tablets 600mg 42tab one by mouth E11.22 s twice a day D. - [facility] [place] 07/28.D Daptomycin 06/09 Hx Solution 500mg iv every Rec hours x 28 D. - days at [facility], 07/15 infusion . center Sulfamethoxazo 08/24 Hx Tablets 800-160mg 60tab 1 by mouth M86.472 Govind black/Trimethopri s twice daily D. [place] [facility] [place]. Metronidazole 07/05 Hx Tablets 500mg 60tab 1 tab by M86.472 s mouth every Eduar, - 12 hours M.D. 09/23 Bactrim DS 05/29 Hx Tablets 800-160mg 30tab 1 by mouth s twice a day Eduar, - M.D. 08/23 Flagyl 02/02 Hx Tablets 500mg 30tab 1 by mouth M86.672 Govind s two times a D. - day [facility] [place], 03/22. Levofloxacin 02/02 Hx Tablets 500mg 30tab 1 by mouth M86.672 Govind s every day D. - [facility] [place], 03/22.D. Meropenem 12/16 Hx Solution 1gm 1gm iv every Rec 12 hours for D. - 6 weeks [facility] [place], 02/08 M.D Lisinopril Hx Tablets 5mg 1 by mouth Unknown /0000 every day - 12/13 Levofloxacin Hx Tablets 250mg 1 by mouth Unknown /0000 every day - - stop taking 12/17 on 12/17/2013 Probiotic /00 Hx Capsules 1 by mouth Unknown /0000 every day - 02/08 Metronidazole Hx Tablets 500mg one tablet by Unknown /0000 mouth 3 times - daily x 3 Levofloxacin Hx Tablets 500mg one by mouth Unknown /0000 daily for 3 - days 02/02 Vancomycin HCL 00 Hx Solution 1000mg iv every 24 Unknown /0000 Rec hours through - [facility] 05/08 Meropenem Hx Solution 1gm 1gm iv every Unknown /0000 Rec 8 hours - through [facility] 05/08 Probiotic 00 Hx Capsules 1 by mouth Unknown Acidophilus /0000 once a day - 05/08 Cephalexin Hx Capsules 500mg Take 1 Unknown /0000 Capsule By - Mouth 2 Times 06/02 A Day ( [facility] [place] DC summary) Linezolid Hx Tablets 600mg one by mouth Unknown /0000 twice a day - 06/23 Immunizations CPT Code Status Date Vaccine Lot # [id number] Given 11/28/2014 Influenza Virus Vaccine, Quadrivalent, Split, Preservative Free Vital Signs Date Vital Result Comment 03/24/2018 8:39am Height 72 inches 6'0" Heart Rate 64 /min BP Systolic 130 mmHg BP Diastolic 78 mmHg Body Temperature 96.7 F Pain Level 0 03/03/2018 10:22am Height 72 inches 6'0" Heart Rate 76 /min Respiratory Rate 18 /min Body Temperature 97.4 F Pain Level 0 02/03/2018 10:00am Height 72 inches 6'0" Heart Rate 60 /min BP Systolic Sitting 142 mmHg BP Diastolic Sitting 92 mmHg Pain Level 0 01/13/2018 10:44am Height 72 inches 6'0" Weight 198.00 lb Heart Rate 62 /min Respiratory Rate 16 /min Body Temperature 96.2 F BMI (Body Mass Index) 26.9 kg/m2 01/02/2018 1:56pm Height 72 inches 6'0" Heart Rate 92 /min Respiratory Rate 16 /min Body Temperature 97.6 F Pain Level 0 12/26/2017 10:19am Height 72 inches 6'0" Heart Rate 80 /min Respiratory Rate 18 /min Body Temperature 96.4 F Pain Level 0 10/21/2017 8:19am Height 72 inches 6'0" Weight 198.00 lb Heart Rate 68 /min BP Systolic 124 mmHg BP Diastolic 70 mmHg Respiratory Rate 12 /min Pain Level 0 BMI (Body Mass Index) 26.9 kg/m2 09/25/2017 1:45pm Height 72 inches 6'0" Weight 201.00 lb Heart Rate 84 /min BP Systolic Sitting 142 mmHg BP Diastolic Sitting 70 mmHg Respiratory Rate 14 /min Body Temperature 99.0 F BMI (Body Mass Index) 27.3 kg/m2 09/16/2017 8:11am Height 72 inches 6'0" Weight 198.00 lb Heart Rate 72 /min BP Systolic 120 mmHg BP Diastolic 68 mmHg Respiratory Rate 12 /min Body Temperature 97.1 F Pain Level 0 BMI (Body Mass Index) 26.9 kg/m2 09/04/2017 3:09pm Height 72 inches 6'0" Weight 203.25 lb Heart Rate 60 /min BP Systolic Sitting 124 mmHg BP Diastolic Sitting 62 mmHg Respiratory Rate 14 /min Body Temperature 98.9 F BMI (Body Mass Index) 27.6 kg/m2 09/02/2017 10:00am Height 72 inches 6'0" Weight 198.00 lb Heart Rate 72 /min BP Systolic 136 mmHg BP Diastolic 70 mmHg Respiratory Rate 14 /min Body Temperature 97.2 F Pain Level 0 BMI (Body Mass Index) 26.9 kg/m2 08/22/2017 12:55pm Height 72 inches 6'0" Weight 199.50 lb Heart Rate 72 /min BP Systolic Sitting 124 mmHg BP Diastolic Sitting 60 mmHg Respiratory Rate 14 /min Body Temperature 98.7 F BMI (Body Mass Index) 27.1 kg/m2 07/16/2017 9:14am Height 72 inches 6'0" Weight 203.25 lb Heart Rate 72 /min BP Systolic Sitting 110 mmHg BP Diastolic Sitting 58 mmHg Respiratory Rate 14 /min Body Temperature 96.7 F BMI (Body Mass Index) 27.6 kg/m2 06/24/2017 9:38am Height 72 inches 6'0" Weight 204.25 lb Heart Rate 72 /min BP Systolic Sitting 120 mmHg BP Diastolic Sitting 72 mmHg Respiratory Rate 14 /min Body Temperature 97.7 F BMI (Body Mass Index) 27.7 kg/m2 06/17/2017 8:16am Height 72 inches 6'0" Weight 204.00 lb Heart Rate 62 /min BP Systolic 148 mmHg BP Diastolic 74 mmHg Body Temperature 96.7 F BMI (Body Mass Index) 27.7 kg/m2 06/12/2017 10:34am Height 72 inches 6'0" Weight 204.00 lb BP Systolic 120 mmHg BP Diastolic 62 mmHg Respiratory Rate 20 /min Body Temperature 95.7 F Pain Level 0 BMI (Body Mass Index) 27.7 kg/m2 06/09/2017 1:23pm Height 72 inches 6'0" Weight 204.00 lb Heart Rate 84 /min BP Systolic Sitting 118 mmHg BP Diastolic Sitting 54 mmHg Respiratory Rate 14 /min Body Temperature 98.4 F BMI (Body Mass Index) 27.7 kg/m2 06/03/2017 9:05am Height 72 inches 6'0" Weight 207.00 lb Heart Rate 72 /min BP Systolic Sitting 138 mmHg BP Diastolic Sitting 78 mmHg Respiratory Rate 14 /min Body Temperature 97.9 F BMI (Body Mass Index) 28.1 kg/m2 04/18/2016 9:36am Height 72 inches 6'0" Weight 201.00 lb Respiratory Rate 18 /min Pain Level 0 BMI (Body Mass Index) 27.3 kg/m2 03/19/2016 9:47am Height 71 inches 5'11" Weight 201.00 lb BP Systolic Sitting 153 mmHg BP Diastolic Sitting 83 mmHg BMI (Body Mass Index) 28.0 kg/m2 02/01/2016 10:50am Height 71 inches 5'11" Weight 201.00 lb Pain Level 0 BMI (Body Mass Index) 28.0 kg/m2 12/28/2015 10:22am Height 71 inches 5'11" Weight 201.00 lb Pain Level 0 BMI (Body Mass Index) 28.0 kg/m2 12/21/2015 12:00pm Height 71 inches 5'11" Weight 201.00 lb Pain Level 0 BMI (Body Mass Index) 28.0 kg/m2 11/30/2015 11:43am Height 71 inches 5'11" Weight 201.00 lb Pain Level 0 BMI (Body Mass Index) 28.0 kg/m2 10/19/2015 10:59am Height 71 inches 5'11" Weight 202.00 lb Heart Rate 68 /min BP Systolic 119 mmHg BP Diastolic 68 mmHg BMI (Body Mass Index) 28.2 kg/m2 10/17/2015 9:42am Height 73 inches 6'1" Weight 201.38 lb Heart Rate 64 /min BP Systolic Sitting 118 mmHg BP Diastolic Sitting 64 mmHg Respiratory Rate 14 /min Body Temperature 98.3 F BMI (Body Mass Index) 26.6 kg/m2 09/28/2015 8:47am Height 73 inches 6'1" Weight 214.00 lb Pain Level 0 BMI (Body Mass Index) 28.2 kg/m2 09/25/2015 1:21pm Height 73 inches 6'1" Weight 214.00 lb Heart Rate 74 /min BP Systolic Sitting 140 mmHg BP Diastolic Sitting 80 mmHg Respiratory Rate 14 /min Body Temperature 98.5 F BMI (Body Mass Index) 28.2 kg/m2 09/21/2015 9:47am Height 73 inches 6'1" Weight 218.00 lb Pain Level 0 BMI (Body Mass Index) 28.8 kg/m2 09/05/2015 3:02pm Height 73 inches 6'1" Weight 218.00 lb Heart Rate 60 /min Respiratory Rate 16 /min Pain Level 0 BMI (Body Mass Index) 28.8 kg/m2 08/25/2015 9:52am Height 73 inches 6'1" Weight 218.00 lb Heart Rate 60 /min BP Systolic Sitting 124 mmHg BP Diastolic Sitting 80 mmHg Respiratory Rate 14 /min Body Temperature 96.9 F BMI (Body Mass Index) 28.8 kg/m2 08/15/2015 3:20pm Height 73 inches 6'1" Weight 214.00 lb Heart Rate 64 /min Respiratory Rate 16 /min Pain Level 0 BMI (Body Mass Index) 28.2 kg/m2 08/04/2015 10:48am Height 73 inches 6'1" Weight 214.00 lb Pain Level 0 BMI (Body Mass Index) 28.2 kg/m2 07/25/2015 2:58pm Height 73 inches 6'1" Weight 214.00 lb Pain Level 0 BMI (Body Mass Index) 28.2 kg/m2 07/06/2015 3:23pm Height 73 inches 6'1" Weight 214.00 lb Heart Rate 76 /min BP Systolic Sitting 124 mmHg BP Diastolic Sitting 80 mmHg Respiratory Rate 16 /min Body Temperature 99.2 F BMI (Body Mass Index) 28.2 kg/m2 07/05/2015 3:15pm Height 73 inches 6'1" Weight 212.00 lb Pain Level 0 BMI (Body Mass Index) 28.0 kg/m2 06/21/2015 2:20pm Height 71 inches 5'11" Weight 212.00 lb Pain Level 0 BMI (Body Mass Index) 29.6 kg/m2 06/13/2015 1:57pm Height 71 inches 5'11" Weight 212.00 lb Pain Level 0 BMI (Body Mass Index) 29.6 kg/m2 06/07/2015 3:21pm Height 71 inches 5'11" Weight 212.00 lb BMI (Body Mass Index) 29.6 kg/m2 05/30/2015 2:21pm Height 71 inches 5'11" Weight 212.00 lb Pain Level 991 BMI (Body Mass Index) 29.6 kg/m2 05/25/2015 9:03am Height 71 inches 5'11" Weight 212.00 lb Pain Level 3 BMI (Body Mass Index) 29.6 kg/m2 05/10/2015 2:58pm Height 71 inches 5'11" Weight 212.00 lb Heart Rate 71 /min BP Systolic Sitting 128 mmHg BP Diastolic Sitting 76 mmHg Respiratory Rate 14 /min Body Temperature 97.3 F BMI (Body Mass Index) 29.6 kg/m2 05/10/2015 1:19pm Height 71 inches 5'11" Weight 212.00 lb Pain Level 0 BMI (Body Mass Index) 29.6 kg/m2 05/03/2015 3:00pm Height 71 inches 5'11" Weight 212.00 lb Pain Level 0 BMI (Body Mass Index) 29.6 kg/m2 04/19/2015 1:49pm Height 71 inches 5'11" Weight 215.00 lb Heart Rate 72 /min BP Systolic Sitting 126 mmHg BP Diastolic Sitting 84 mmHg Respiratory Rate 16 /min Body Temperature 97.8 F BMI (Body Mass Index) 30.0 kg/m2 04/11/2015 1:39pm Height 71 inches 5'11" Weight 212.00 lb Pain Level 6 BMI (Body Mass Index) 29.6 kg/m2 04/06/2015 9:59am Height 71 inches 5'11" Weight 212.00 lb Body Temperature 98.2 F Pain Level 3 BMI (Body Mass Index) 29.6 kg/m2 03/29/2015 2:12pm Height 71 inches 5'11" Weight 212.00 lb Heart Rate 73 /min BP Systolic Sitting 126 mmHg BP Diastolic Sitting 64 mmHg Respiratory Rate 14 /min Body Temperature 97.5 F O2 % BldC Oximetry 96 % BMI (Body Mass Index) 29.6 kg/m2 03/23/2015 9:47am Height 71 inches 5'11" Weight 221.00 lb Body Temperature 97.0 F BMI (Body Mass Index) 30.8 kg/m2 03/09/2015 3:19pm Height 71 inches 5'11" Weight 221.00 lb Heart Rate 110 /min BP Systolic Sitting 123 mmHg BP Diastolic Sitting 68 mmHg Body Temperature 98.3 F Pain Level 5 BMI (Body Mass Index) 30.8 kg/m2 02/21/2015 10:00am Height 71 inches 5'11" Weight 221.00 lb Heart Rate 79 /min BP Systolic Sitting 118 mmHg BP Diastolic Sitting 62 mmHg Respiratory Rate 14 /min Body Temperature 97.3 F BMI (Body Mass Index) 30.8 kg/m2 02/09/2015 1:14pm Height 71 inches 5'11" Weight 218.00 lb Heart Rate 88 /min BP Systolic 106 mmHg BP Diastolic 66 mmHg Body Temperature 98.1 F BMI (Body Mass Index) 30.4 kg/m2 02/02/2015 4:10pm Height 71 inches 5'11" Weight 218.00 lb Heart Rate 88 /min BP Systolic Sitting 138 mmHg BP Diastolic Sitting 66 mmHg Respiratory Rate 16 /min Body Temperature 99.8 F BMI (Body Mass Index) 30.4 kg/m2 03/18/2014 10:21am Height 71 inches 5'11" Weight 203.00 lb Pain Level 0 BMI (Body Mass Index) 28.3 kg/m2 02/09/2014 1:19pm Height 71 inches 5'11" Heart Rate 74 /min BP Systolic Sitting 120 mmHg BP Diastolic Sitting 56 mmHg Respiratory Rate 14 /min Body Temperature 98.1 F 01/28/2014 2:28pm Height 71 inches 5'11" Weight 203.00 lb Heart Rate 80 /min BMI (Body Mass Index) 28.3 kg/m2 01/18/2014 2:33pm Height 71 inches 5'11" Weight 203.00 lb Heart Rate 80 /min BMI (Body Mass Index) 28.3 kg/m2 01/12/2014 1:43pm Height 71 inches 5'11" Weight 203.00 lb Heart Rate 80 /min BP Systolic Sitting 146 mmHg BP Diastolic Sitting 72 mmHg Respiratory Rate 14 /min Body Temperature 98.0 F BMI (Body Mass Index) 28.3 kg/m2 01/07/2014 2:29pm Height 71 inches 5'11" Weight 205.00 lb Pain Level 9 BMI (Body Mass Index) 28.6 kg/m2 12/31/2013 10:09am Height 71 inches 5'11" Weight 205.00 lb Body Temperature 98.1 F BMI (Body Mass Index) 28.6 kg/m2 12/28/2013 10:03am Height 71 inches 5'11" Weight 205.00 lb Heart Rate 82 /min BP Systolic Sitting 142 mmHg BP Diastolic Sitting 78 mmHg Respiratory Rate 14 /min Body Temperature 97.7 F BMI (Body Mass Index) 28.6 kg/m2 12/24/2013 10:55am Height 71 inches 5'11" Weight 205.00 lb Pain Level 983 BMI (Body Mass Index) 28.6 kg/m2 12/14/2013 8:50am Height 71 inches 5'11" Weight 200.00 lb per patient report Heart Rate 65 /min BP Systolic Sitting 110 mmHg BP Diastolic Sitting 58 mmHg Respiratory Rate 14 /min Body Temperature 98.1 F BMI (Body Mass Index) 27.9 kg/m2 11/25/2013 2:59pm Height 71 inches 5'11" Weight 205.00 lb Heart Rate 62 /min BP Systolic 115 mmHg BP Diastolic 57 mmHg Body Temperature 98.2 F BMI (Body Mass Index) 28.6 kg/m2 Results Test Date Facility Test Result H/L Range Note CBC Auto Diff 07/01/2017 [facility] White Blood 6.7 10^3/uL N 3.5-10.[address] [place] [address] [phone] Red Blood Count 3.35 10^6/uL Low 4.0-5.4 Hemoglobin 10.6 g/dL Low 14.0-18.0 Hematocrit 32 % Low 42-52 Mean Corpuscular Volume 94 fL N 80-94 Mean Corpuscular Hemoglobin 32 pg High 27-31 Mean Corpuscular HGB Conc 34 g/dL N 31-36 Red Cell Distribution Width 16 % High 10.5-15 Platelet Count 286 10^3/uL N 150-450 Mean Platelet Volume 6.5 um3 Low 7.4-10.4 Abs Neutrophils 4.8 10^3/uL N 1.5-7.7 Abs Lymphocytes 0.9 10^3/uL Low 1.0-4.8 Abs Monocytes 0.5 10^3/uL N 0-0.8 Abs Eosinophils 0.6 10^3/uL N 0-0.6 Abs Basophils 0.1 10^3/uL N 0-0.2 Abs Nucleated RBC 0 10^3/uL Granulocyte % 71.3 % N 38-83 Lymphocyte % 12.6 % Low 25-47 Monocyte % 7.1 % High 0-7 Eosinophil % 8.2 % High 0-6 Basophil % 0.8 % N 0-2 Nucleated Red Blood Cells % 0 Comp Metabolic Panel 07/01/2017 [facility] Sodium 135 mmol/L Low 139-[address] [place] [address] [phone] Potassium 4.5 mmol/L N 3.5-5.0 Chloride 106 mmol/L N 101-111 Co2 Carbon Dioxide 26 mmol/L N 22-32 Anion Gap 3 mmol/L N 2-11 Glucose 153 mg/dL High 70-100 Blood Urea Nitrogen 23 mg/dL N 6-24 Creatinine 1.66 mg/dL High 0.67-1.17 BUN/Creatinine Ratio 13.9 N 8-20 Calcium 9.1 mg/dL N 8.6-10.3 Total Protein 6.6 g/dL N 6.4-8.9 Albumin 3.8 g/dL N 3.2-5.2 Globulin 2.8 g/dL N 2-4 Albumin/Globulin Ratio 1.4 N 1-3 Total Bilirubin 0.40 mg/dL N 0.2-1.0 Alkaline Phosphatase 41 U/L N 34-104 Alt 10 U/L N 7-52 Ast 14 U/L N 13-39 Egfr Non- 40.1 >60 Egfr 51.5 >60 1 Laboratory test 07/01/2017 [facility] Creatine 67 U/L N 10- [address] Kinase(CK) [place] [address] [phone] C Reactive Protein 10.74 mg/L High < 5.00 2 CBC Auto Diff 06/24/2017 [facility] White Blood 4.6 10^3/uL N 3.5-10.[address] [place] [address] [phone] Red Blood Count 3.09 10^6/uL Low 4.0-5.4 Hemoglobin 10.0 g/dL Low 14.0-18.0 Hematocrit 29 % Low 42-52 Mean Corpuscular Volume 95 fL High 80-94 Mean Corpuscular Hemoglobin 32 pg High 27-31 Mean Corpuscular HGB Conc 34 g/dL N 31-36 Red Cell Distribution Width 15 % N 10.5-15 Platelet Count 219 10^3/uL N 150-450 Mean Platelet Volume 6.6 um3 Low 7.4-10.4 Abs Neutrophils 3.3 10^3/uL N 1.5-7.7 Abs Lymphocytes 0.7 10^3/uL Low 1.0-4.8 Abs Monocytes 0.4 10^3/uL N 0-0.8 Abs Eosinophils 0.2 10^3/uL N 0-0.6 Abs Basophils 0 10^3/uL N 0-0.2 Abs Nucleated RBC 0 10^3/uL Granulocyte % 72.6 % N 38-83 Lymphocyte % 14.9 % Low 25-47 Monocyte % 8.6 % High 0-7 Eosinophil % 3.4 % N 0-6 Basophil % 0.5 % N 0-2 Nucleated Red Blood Cells % 0 Comp Metabolic Panel 06/24/2017 [facility] Sodium 138 mmol/L Low 139-[address] [place] [address] [phone] Potassium 4.7 mmol/L N 3.5-5.0 Chloride 109 mmol/L N 101-111 Co2 Carbon Dioxide 25 mmol/L N 22-32 Anion Gap 4 mmol/L N 2-11 Calcium 8.8 mg/dL N 8.6-10.3 Albumin 3.8 g/dL N 3.2-5.2 Total Bilirubin 0.30 mg/dL N 0.2-1.0 Glucose 128 mg/dL High 70-100 Blood Urea Nitrogen 25 mg/dL High 6-24 Creatinine 1.52 mg/dL High 0.67-1.17 BUN/Creatinine Ratio 16.4 N 8-20 Total Protein 6.6 g/dL N 6.4-8.9 Globulin 2.8 g/dL N 2-4 Albumin/Globulin Ratio 1.4 N 1-3 Alkaline Phosphatase 43 U/L N 34-104 Alt 10 U/L N 7-52 Ast 15 U/L N 13-39 Egfr Non- 44.3 >60 Egfr 57.0 >60 3 Laboratory test 06/24/2017 [facility] Creatine 80 U/L N 10- [address] Kinase(CK) [place] [address] [phone] C Reactive Protein 5.85 mg/L High < 5.00 4 CBC Auto Diff 06/17/2017 [facility] White Blood 6.3 10^3/uL N 3.5-10.[address] [place] [address] [phone] Red Blood Count 3.12 10^6/uL Low 4.0-5.4 Hemoglobin 10.0 g/dL Low 14.0-18.0 Hematocrit 29 % Low 42-52 Mean Corpuscular Volume 94 fL N 80-94 Mean Corpuscular Hemoglobin 32 pg High 27-31 Mean Corpuscular HGB Conc 34 g/dL N 31-36 Red Cell Distribution Width 14 % N 10.5-15 Platelet Count 143 10^3/uL Low 150-450 Mean Platelet Volume 6.5 um3 Low 7.4-10.4 Abs Neutrophils 4.6 10^3/uL N 1.5-7.7 Abs Lymphocytes 0.8 10^3/uL Low 1.0-4.8 Abs Monocytes 0.7 10^3/uL N 0-0.8 Abs Eosinophils 0.1 10^3/uL N 0-0.6 Abs Basophils 0 10^3/uL N 0-0.2 Abs Nucleated RBC 0 10^3/uL Granulocyte % 73.1 % N 38-83 Lymphocyte % 13.3 % Low 25-47 Monocyte % 11.6 % High 0-7 Eosinophil % 1.2 % N 0-6 Basophil % 0.8 % N 0-2 Nucleated Red Blood Cells % 0 Comp Metabolic Panel 06/17/2017 [facility] Sodium 139 mmol/L N 139-[address] [place] [address] [phone] Potassium 4.7 mmol/L N 3.5-5.0 Chloride 107 mmol/L N 101-111 Co2 Carbon Dioxide 26 mmol/L N 22-32 Anion Gap 6 mmol/L N 2-11 Glucose 126 mg/dL High 70-100 Blood Urea Nitrogen 30 mg/dL High 6-24 Creatinine 1.55 mg/dL High 0.67-1.17 BUN/Creatinine Ratio 19.4 N 8-20 Calcium 8.9 mg/dL N 8.6-10.3 Total Protein 6.8 g/dL N 6.4-8.9 Albumin 3.7 g/dL N 3.2-5.2 Globulin 3.1 g/dL N 2-4 Albumin/Globulin Ratio 1.2 N 1-3 Total Bilirubin 0.50 mg/dL N 0.2-1.0 Alkaline Phosphatase 37 U/L N 34-104 Alt 16 U/L N 7-52 Ast 19 U/L N 13-39 Egfr Non- 43.4 >60 Egfr 55.8 >60 5 Laboratory test 06/17/2017 [facility] Creatine 100 U/L N 10- [address] Kinase(CK) [place] [address] [phone] C Reactive Protein 3.64 mg/L N < 5.00 6 CBC Auto Diff 06/10/2017 [facility] White Blood 7.0 10^3/uL N 3.5-10.[address] [place] [address] [phone] Red Blood Count 3.24 10^6/uL Low 4.0-5.4 Hemoglobin 10.2 g/dL Low 14.0-18.0 Hematocrit 31 % Low 42-52 Mean Corpuscular Volume 95 fL High 80-94 Mean Corpuscular Hemoglobin 32 pg High 27-31 Mean Corpuscular HGB Conc 33 g/dL N 31-36 Red Cell Distribution Width 14 % N 10.5-15 Platelet Count 290 10^3/uL N 150-450 Mean Platelet Volume 6.2 um3 Low 7.4-10.4 Abs Neutrophils 5.3 10^3/uL N 1.5-7.7 Abs Lymphocytes 1.0 10^3/uL N 1.0-4.8 Abs Monocytes 0.5 10^3/uL N 0-0.8 Abs Eosinophils 0.2 10^3/uL N 0-0.6 Abs Basophils 0 10^3/uL N 0-0.2 Abs Nucleated RBC 0 10^3/uL Granulocyte % 75.7 % N 38-83 Lymphocyte % 14.7 % Low 25-47 Monocyte % 6.9 % N 0-7 Eosinophil % 2.2 % N 0-6 Basophil % 0.5 % N 0-2 Nucleated Red Blood Cells % 0 Comp Metabolic Panel 06/10/2017 [facility] Sodium 137 mmol/L Low 139-[address] [place] [address] [phone] Potassium 4.7 mmol/L N 3.5-5.0 Chloride 105 mmol/L N 101-111 Co2 Carbon Dioxide 26 mmol/L N 22-32 Anion Gap 6 mmol/L N 2-11 Glucose 98 mg/dL N 70-100 Blood Urea Nitrogen 26 mg/dL High 6-24 Creatinine 1.86 mg/dL High 0.67-1.17 BUN/Creatinine Ratio 14.0 N 8-20 Calcium 8.9 mg/dL N 8.6-10.3 Total Protein 7.2 g/dL N 6.4-8.9 Albumin 3.8 g/dL N 3.2-5.2 Globulin 3.4 g/dL N 2-4 Albumin/Globulin Ratio 1.1 N 1-3 Total Bilirubin 0.30 mg/dL N 0.2-1.0 Alkaline Phosphatase 41 U/L N 34-104 Alt 13 U/L N 7-52 Ast 18 U/L N 13-39 Egfr Non- 35.1 >60 Egfr 45.2 >60 7 Laboratory test 06/10/2017 [facility] Creatine 109 U/L N 10- [address] Kinase(CK) [place] [address] [phone] C Reactive Protein 10.29 mg/L High < 5.00 8 Laboratory test 06/08/2017 [facility] Blood Culture SEE RESULT [address] [place] [address] [phone] Laboratory test 06/06/2017 [facility] Blood Culture SEE RESULT [address] [place] [address] [phone] Laboratory test 06/06/2017 [facility] C Reactive 53.52 mg/L High < [address] Protein 5.00 [place], [place] [id number] [phone] Comp Metabolic 06/06/2017 [facility] Sodium 138 mmol/L Low 139 -[address] [place], [place] [id number] [phone] Potassium 4.8 mmol/L N 3.5-5.0 Chloride 104 mmol/L N 101-111 Co2 Carbon Dioxide 23 mmol/L N 22-32 Anion Gap 11 mmol/L N 2-11 Glucose 170 mg/dL High 70-100 Blood Urea Nitrogen 24 mg/dL N 6-24 Creatinine 1.90 mg/dL High 0.67-1.17 BUN/Creatinine Ratio 12.6 N 8-20 Calcium 8.7 mg/dL N 8.6-10.3 Total Protein 7.1 g/dL N 6.4-8.9 Albumin 3.7 g/dL N 3.2-5.2 Globulin 3.4 g/dL N 2-4 Albumin/Globulin Ratio 1.1 N 1-3 Total Bilirubin 0.50 mg/dL N 0.2-1.0 Alkaline Phosphatase 39 U/L N 34-104 Alt 12 U/L N 7-52 Ast 14 U/L N 13-39 Egfr Non- 34.3 >60 Egfr 44.1 >60 12 CBC Auto Diff 06/06/2017 [facility] White Blood 9.2 10^3/uL N 3.5-10.[address] Count [place] [address] [phone] Red Blood Count 3.53 10^6/uL Low 4.0-5.4 Hemoglobin 11.4 g/dL Low 14.0-18.0 Hematocrit 33 % Low 42-52 Mean Corpuscular Volume 94 fL N 80-94 Mean Corpuscular Hemoglobin 32 pg High 27-31 Mean Corpuscular HGB Conc 34 g/dL N 31-36 Red Cell Distribution Width 14 % N 10.5-15 Platelet Count 402 10^3/uL N 150-450 Mean Platelet Volume 6.4 um3 Low 7.4-10.4 Abs Neutrophils 7.7 10^3/uL N 1.5-7.7 Abs Lymphocytes 0.7 10^3/uL Low 1.0-4.8 Abs Monocytes 0.5 10^3/uL N 0-0.8 Abs Eosinophils 0.2 10^3/uL N 0-0.6 Abs Basophils 0 10^3/uL N 0-0.2 Abs Nucleated RBC 0 10^3/uL Granulocyte % 83.7 % High 38-83 Lymphocyte % 7.8 % Low 25-47 Monocyte % 5.9 % N 0-7 Eosinophil % 2.1 % N 0-6 Basophil % 0.5 % N 0-2 Nucleated Red Blood Cells % 0.1 Laboratory test 06/06/2017 [facility] Blood Culture SEE RESULT [address] [place] [address] [phone] CBC No Diff 10/31/2015 [facility] White Blood 8.8 10^3/uL N 3.5-[address] Count .8 [place] [address] [phone] Red Blood Count 3.16 10^6/uL Low 4.0-5.4 Hemoglobin 9.7 g/dL Low 14.0-18.0 Hematocrit 30 % Low 42-52 Mean Corpuscular Volume 94 fL N 80-94 Mean Corpuscular Hemoglobin 31 pg N 27-31 Mean Corpuscular HGB Conc 33 g/dL N 31-36 Red Cell Distribution Width 14 % N 10.5-15 Platelet Count 436 10^3/uL N 150-450 Mean Platelet Volume 6 um3 Low 7.4-10.4 Inr/Protime 10/31/2015 [facility] Inr 1.16 High 0.89-1.[address] [place] [address] [phone] Laboratory test 10/31/2015 [facility] Partial 32.3 N 26.0- 36.[address] [place] [address] Time PTT [phone] Basic Metabolic 10/31/2015 [facility] Sodium 132 mmol/L Low 133-[address] [place] [address] [phone] Potassium 4.5 mmol/L N 3.5-5.0 Chloride 98 mmol/L Low 101-111 Co2 Carbon Dioxide 23 mmol/L N 22-32 Anion Gap 11 mmol/L N 2-11 Glucose 198 mg/dL High 70-100 Blood Urea Nitrogen 24 mg/dL N 6-24 Creatinine 2.16 mg/dL High 0.67-1.17 BUN/Creatinine Ratio 11.1 N 8-20 Calcium 8.8 mg/dL N 8.6-10.3 Egfr Non- 29.7 N >60 Egfr 38.2 N >60 16 Type & Screen 10/31/2015 [facility] Patient Blood Type A Negative N [address] [place], [place] [id number] [phone] Antibody Screen NEGATIVE N Wound 10/17/2015 [facility] Wound/Misc SEE RESULT 17 Culture/Sensi [address] [place] [address] Stain [phone] Laboratory test 10/12/2015 [facility] Point of Care 143 mg/dL High 74- [address] Glucose 106 [place] [address] [phone] Laboratory test 10/12/2015 [facility] Point of Care 150 mg/dL High 74- [address] Glucose 106 [place] [address] [phone] Laboratory test 10/11/2015 [facility] Point of Care 150 mg/dL High 74- [address] Glucose 106 [place], [place] [id number] [phone] Laboratory test 10/11/2015 [facility] Point of Care 140 mg/dL High 74- [address] Glucose 106 [place], [place] [id number] [phone] Laboratory test 10/10/2015 [facility] Point of Care 120 mg/dL High 74- [address] Glucose 106 [place], [place] [id number] [phone] Laboratory test 10/10/2015 [facility] Point of Care 149 mg/dL High 74- [address] Glucose 106 [place], [place] [address] [phone] Laboratory test 10/09/2015 [facility] Point of Care 114 mg/dL High 74- [address] Glucose 106 [place], [place] [address]991 [phone] Laboratory test 10/09/2015 [facility] Point of Care 142 mg/dL High 74- [address] Glucose 106 [place] [address] [phone] Laboratory test 10/05/2015 [facility] Point of Care 118 mg/dL High 74- [address] Glucose 106 [place], [place] [address] [phone] Laboratory test 10/05/2015 [facility] Point of Care 205 mg/dL High 74- [address] Glucose 106 [place] [address] [phone] Laboratory test 10/04/2015 [facility] Point of Care 121 mg/dL High 74- [address] Glucose 106 [place] [address] [phone] Laboratory test 10/04/2015 [facility] Point of Care 142 mg/dL High 74- [address] Glucose 106 [place], [place] [address]41 [phone] Laboratory test 10/03/2015 [facility] Point of Care 130 mg/dL High 74- [address] Glucose 106 [place] [id number] [phone] Laboratory test 10/03/2015 [facility] Point of Care 155 mg/dL High 74- [address] Glucose 106 [place] [address] [phone] Wound 07/05/2015 [facility] Wound/Misc SEE RESULT 32, Culture/Sensi [address] Culture-Gram BELOW [address] [place] [address] Stain [phone] CBC Auto Diff 04/24/2015 [facility] White Blood 5.4 N 3.[address] Count 10^3/uL -10 [place] [address] .8 [phone] Red Blood Count 3.17 10^6/uL Low 4.0-5.4 Hemoglobin 10.0 g/dL Low 14.0-18.0 Hematocrit 30 % Low 42-52 Mean Corpuscular Volume 96 fL High 80-94 Mean Corpuscular Hemoglobin 32 pg High 27-31 Mean Corpuscular HGB Conc 33 g/dL N 31-36 Red Cell Distribution Width 14 % N 10.5-15 Platelet Count 239 10^3/uL N 150-450 Mean Platelet Volume 7 um3 Low 7.4-10.4 Abs Neutrophils 3.9 10^3/uL N 1.5-7.7 Abs Lymphocytes 0.8 10^3/uL Low 1.0-4.8 Abs Monocytes 0.5 10^3/uL N 0-0.8 Abs Eosinophils 0.3 10^3/uL N 0-0.6 Abs Basophils 0 10^3/uL N 0-0.2 Abs Nucleated RBC 0.01 10^3/uL N Granulocyte % 71.9 % N 38-83 Lymphocyte % 14.1 % Low 25-47 Monocyte % 8.8 % N 1-9 Eosinophil % 4.6 % N 0-6 Basophil % 0.6 % N 0-2 Nucleated Red Blood Cells % 0.1 N Comp Metabolic Panel 04/24/2015 [facility] Sodium 138 mmol/L N 133-[address] [place] [address] [phone] Potassium 4.4 mmol/L N 3.5-5.0 Chloride 105 mmol/L N 101-111 Co2 Carbon Dioxide 27 mmol/L N 22-32 Anion Gap 6 mmol/L N 2-11 Glucose 114 mg/dL High 70-100 Blood Urea Nitrogen 27 mg/dL High 6-24 Creatinine 1.69 mg/dL High 0.67-1.17 BUN/Creatinine Ratio 16.0 N 8-20 Calcium 8.9 mg/dL N 8.6-10.3 Total Protein 6.0 g/dL Low 6.4-8.9 Albumin 3.6 g/dL N 3.2-5.2 Globulin 2.4 g/dL N 2-4 Albumin/Globulin Ratio 1.5 N 1-3 Total Bilirubin 0.50 mg/dL N 0.2-1.0 Alkaline Phosphatase 45 U/L N 34-104 Alt 7 U/L N 7-52 Ast 13 U/L N 13-39 Egfr Non- 39.4 N >60 Egfr 50.7 N >60 35 Laboratory test 04/24/2015 [facility] Vancomycin Trough 16.6 g /mL N [address] [place] [address] [phone] C Reactive Protein 4.22 mg/L N < 5.00 37 CBC Auto Diff 04/18/2015 [facility] White Blood 5.1 10^3/uL N 3.5-10.[address] [place] [address] [phone] Red Blood Count 3.21 10^6/uL Low 4.0-5.4 Hemoglobin 10.1 g/dL Low 14.0-18.0 Hematocrit 31 % Low 42-52 Mean Corpuscular Volume 97 fL High 80-94 Mean Corpuscular Hemoglobin 32 pg High 27-31 Mean Corpuscular HGB Conc 33 g/dL N 31-36 Red Cell Distribution Width 15 % N 10.5-15 Platelet Count 218 10^3/uL N 150-450 Mean Platelet Volume 7 um3 Low 7.4-10.4 Abs Neutrophils 3.4 10^3/uL N 1.5-7.7 Abs Lymphocytes 0.8 10^3/uL Low 1.0-4.8 Abs Monocytes 0.6 10^3/uL N 0-0.8 Abs Eosinophils 0.3 10^3/uL N 0-0.6 Abs Basophils 0 10^3/uL N 0-0.2 Abs Nucleated RBC 0 10^3/uL N Granulocyte % 66.6 % N 38-83 Lymphocyte % 16.0 % Low 25-47 Monocyte % 11.6 % High 1-9 Eosinophil % 5.3 % N 0-6 Basophil % 0.5 % N 0-2 Nucleated Red Blood Cells % 0 N Comp Metabolic Panel 04/18/2015 [facility] Sodium 139 mmol/L N 133-[address] [place] [address] [phone] Potassium 4.4 mmol/L N 3.5-5.0 Chloride 106 mmol/L N 101-111 Co2 Carbon Dioxide 25 mmol/L N 22-32 Anion Gap 8 mmol/L N 2-11 Glucose 110 mg/dL High 70-100 Blood Urea Nitrogen 32 mg/dL High 6-24 Creatinine 1.82 mg/dL High 0.67-1.17 BUN/Creatinine Ratio 17.6 N 8-20 Calcium 8.8 mg/dL N 8.6-10.3 Total Protein 6.1 g/dL Low 6.4-8.9 Albumin 3.7 g/dL N 3.2-5.2 Globulin 2.4 g/dL N 2-4 Albumin/Globulin Ratio 1.5 N 1-3 Total Bilirubin 0.50 mg/dL N 0.2-1.0 Alkaline Phosphatase 44 U/L N 34-104 Alt 7 U/L N 7-52 Ast 12 U/L Low 13-39 Egfr Non- 36.2 N >60 Egfr 46.6 N >60 38 Laboratory test 04/18/2015 [facility] Vancomycin Trough 16.7 g /mL N finding [address] [place] [address] [phone] C Reactive Protein 7.10 mg/L High < 5.00 39 CBC Auto Diff 04/13/2015 [facility] White Blood 6.2 10^3/uL N 3.5-10.[address] [place] [address] [phone] Red Blood Count 3.22 10^6/uL Low 4.0-5.4 Hemoglobin 10.2 g/dL Low 14.0-18.0 Hematocrit 31 % Low 42-52 Mean Corpuscular Volume 97 fL High 80-94 Mean Corpuscular Hemoglobin 32 pg High 27-31 Mean Corpuscular HGB Conc 33 g/dL N 31-36 Red Cell Distribution Width 14 % N 10.5-15 Platelet Count 211 10^3/uL N 150-450 Mean Platelet Volume 7 um3 Low 7.4-10.4 Abs Neutrophils 4.7 10^3/uL N 1.5-7.7 Abs Lymphocytes 0.7 10^3/uL Low 1.0-4.8 Abs Monocytes 0.4 10^3/uL N 0-0.8 Abs Eosinophils 0.4 10^3/uL N 0-0.6 Abs Basophils 0 10^3/uL N 0-0.2 Abs Nucleated RBC 0 10^3/uL N Granulocyte % 75.7 % N 38-83 Lymphocyte % 11.2 % Low 25-47 Monocyte % 7.1 % N 1-9 Eosinophil % 5.7 % N 0-6 Basophil % 0.3 % N 0-2 Nucleated Red Blood Cells % 0 N Comp Metabolic Panel 04/13/2015 [facility] Sodium 136 mmol/L N 133-[address] [place] [address] [phone] Potassium 4.7 mmol/L N 3.5-5.0 Chloride 105 mmol/L N 101-111 Co2 Carbon Dioxide 26 mmol/L N 22-32 Anion Gap 5 mmol/L N 2-11 Glucose 130 mg/dL High 70-100 Blood Urea Nitrogen 25 mg/dL High 6-24 Creatinine 1.68 mg/dL High 0.67-1.17 BUN/Creatinine Ratio 14.9 N 8-20 Calcium 8.7 mg/dL N 8.6-10.3 Total Protein 6.1 g/dL Low 6.4-8.9 Albumin 3.7 g/dL N 3.2-5.2 Globulin 2.4 g/dL N 2-4 Albumin/Globulin Ratio 1.5 N 1-3 Total Bilirubin 0.50 mg/dL N 0.2-1.0 Alkaline Phosphatase 40 U/L N 34-104 Alt 7 U/L N 7-52 Ast 13 U/L N 13-39 Egfr Non- 39.8 N >60 Egfr 51.2 N >60 40 Laboratory test 04/13/2015 [facility] Vancomycin Trough 14.7 g /mL N finding [address] [place] [address] [phone] C Reactive Protein 5.51 mg/L High < 5.00 41 CBC Auto Diff 04/03/2015 [facility] White Blood 6.5 10^3/uL N 3.5-10.[address] [place] [address] [phone] Red Blood Count 3.32 10^6/uL Low 4.0-5.4 Hemoglobin 10.5 g/dL Low 14.0-18.0 Hematocrit 32 % Low 42-52 Mean Corpuscular Volume 97 fL High 80-94 Mean Corpuscular Hemoglobin 32 pg High 27-31 Mean Corpuscular HGB Conc 33 g/dL N 31-36 Red Cell Distribution Width 14 % N 10.5-15 Platelet Count 273 10^3/uL N 150-450 Mean Platelet Volume 7 um3 Low 7.4-10.4 Abs Neutrophils 5.0 10^3/uL N 1.5-7.7 Abs Lymphocytes 0.8 10^3/uL Low 1.0-4.8 Abs Monocytes 0.5 10^3/uL N 0-0.8 Abs Eosinophils 0.2 10^3/uL N 0-0.6 Abs Basophils 0 10^3/uL N 0-0.2 Abs Nucleated RBC 0 10^3/uL N Granulocyte % 76.5 % N 38-83 Lymphocyte % 12.0 % Low 25-47 Monocyte % 8.3 % N 1-9 Eosinophil % 2.7 % N 0-6 Basophil % 0.5 % N 0-2 Nucleated Red Blood Cells % 0 N Comp Metabolic Panel 04/03/2015 [facility] Sodium 137 mmol/L N 133-[address] [place] [address] [phone] Potassium 4.3 mmol/L N 3.5-5.0 Chloride 102 mmol/L N 101-111 Co2 Carbon Dioxide 25 mmol/L N 22-32 Anion Gap 10 mmol/L N 2-11 Glucose 99 mg/dL N 70-100 Blood Urea Nitrogen 27 mg/dL High 6-24 Creatinine 1.74 mg/dL High 0.67-1.17 BUN/Creatinine Ratio 15.5 N 8-20 Calcium 9.0 mg/dL N 8.6-10.3 Total Protein 6.2 g/dL Low 6.4-8.9 Albumin 3.8 g/dL N 3.2-5.2 Globulin 2.4 g/dL N 2-4 Albumin/Globulin Ratio 1.6 N 1-3 Total Bilirubin 0.50 mg/dL N 0.2-1.0 Alkaline Phosphatase 37 U/L N 34-104 Alt 8 U/L N 7-52 Ast 16 U/L N 13-39 Egfr Non- 38.2 N >60 Egfr 49.2 N >60 42 Laboratory test 04/03/2015 [facility] Vancomycin Trough 19.3 g /mL N [address] [place] [address] [phone] C Reactive Protein 3.88 mg/L N < 5.00 44 CBC Auto Diff 03/27/2015 [facility] White Blood 7.1 10^3/uL N 3.5-10.[address] [place] [address] [phone] Red Blood Count 3.07 10^6/uL Low 4.0-5.4 Hemoglobin 9.8 g/dL Low 14.0-18.0 Hematocrit 29 % Low 42-52 Mean Corpuscular Volume 95 fL High 80-94 Mean Corpuscular Hemoglobin 32 pg High 27-31 Mean Corpuscular HGB Conc 34 g/dL N 31-36 Red Cell Distribution Width 14 % N 10.5-15 Platelet Count 348 10^3/uL N 150-450 Mean Platelet Volume 6 um3 Low 7.4-10.4 Abs Neutrophils 5.4 10^3/uL N 1.5-7.7 Abs Lymphocytes 0.8 10^3/uL Low 1.0-4.8 Abs Monocytes 0.6 10^3/uL N 0-0.8 Abs Eosinophils 0.3 10^3/uL N 0-0.6 Abs Basophils 0 10^3/uL N 0-0.2 Abs Nucleated RBC 0 10^3/uL N Granulocyte % 75.8 % N 38-83 Lymphocyte % 11.4 % Low 25-47 Monocyte % 8.4 % N 1-9 Eosinophil % 3.9 % N 0-6 Basophil % 0.5 % N 0-2 Nucleated Red Blood Cells % 0 N Comp Metabolic Panel 03/27/2015 [facility] Sodium 136 mmol/L N 133-[address] [place] [address] [phone] Potassium 4.7 mmol/L N 3.5-5.0 Chloride 103 mmol/L N 101-111 Co2 Carbon Dioxide 24 mmol/L N 22-32 Anion Gap 9 mmol/L N 2-11 Glucose 102 mg/dL High 70-100 Blood Urea Nitrogen 26 mg/dL High 6-24 Creatinine 1.76 mg/dL High 0.67-1.17 BUN/Creatinine Ratio 14.8 N 8-20 Calcium 8.6 mg/dL N 8.6-10.3 Total Protein 6.0 g/dL Low 6.4-8.9 Albumin 3.5 g/dL N 3.2-5.2 Globulin 2.5 g/dL N 2-4 Albumin/Globulin Ratio 1.4 N 1-3 Total Bilirubin 0.40 mg/dL N 0.2-1.0 Alkaline Phosphatase 35 U/L N 34-104 Alt 8 U/L N 7-52 Ast 16 U/L N 13-39 Egfr Non- 37.7 N >60 Egfr 48.5 N >60 46 Laboratory test 03/27/2015 [facility] Vancomycin Trough 19.3 g /mL N [address] [place] [address] [phone] C Reactive Protein 5.91 mg/L High < 5.00 48 CBC Auto Diff 03/21/2015 [facility] White Blood 6.8 10^3/uL N 3.5-10.[address] [place] [address] [phone] Red Blood Count 2.90 10^6/uL Low 4.0-5.4 Hemoglobin 9.3 g/dL Low 14.0-18.0 Hematocrit 28 % Low 42-52 Mean Corpuscular Volume 96 fL High 80-94 Mean Corpuscular Hemoglobin 32 pg High 27-31 Mean Corpuscular HGB Conc 33 g/dL N 31-36 Red Cell Distribution Width 14 % N 10.5-15 Platelet Count 443 10^3/uL N 150-450 Mean Platelet Volume 6 um3 Low 7.4-10.4 Abs Neutrophils 4.8 10^3/uL N 1.5-7.7 Abs Lymphocytes 1.0 10^3/uL N 1.0-4.8 Abs Monocytes 0.6 10^3/uL N 0-0.8 Abs Eosinophils 0.3 10^3/uL N 0-0.6 Abs Basophils 0 10^3/uL N 0-0.2 Abs Nucleated RBC 0 10^3/uL N Granulocyte % 71.1 % N 38-83 Lymphocyte % 14.7 % Low 25-47 Monocyte % 9.5 % High 1-9 Eosinophil % 4.2 % N 0-6 Basophil % 0.5 % N 0-2 Nucleated Red Blood Cells % 0 N Comp Metabolic Panel 03/21/2015 [facility] Sodium 140 mmol/L N 133-[address] [place] [address] [phone] Potassium 4.4 mmol/L N 3.5-5.0 Chloride 105 mmol/L N 101-111 Co2 Carbon Dioxide 27 mmol/L N 22-32 Anion Gap 8 mmol/L N 2-11 Glucose 67 mg/dL Low 70-100 Blood Urea Nitrogen 24 mg/dL N 6-24 Creatinine 1.71 mg/dL High 0.67-1.17 BUN/Creatinine Ratio 14.0 N 8-20 Calcium 8.6 mg/dL N 8.6-10.3 Total Protein 5.8 g/dL Low 6.4-8.9 Albumin 3.5 g/dL N 3.2-5.2 Globulin 2.3 g/dL N 2-4 Albumin/Globulin Ratio 1.5 N 1-3 Total Bilirubin 0.30 mg/dL N 0.2-1.0 Alkaline Phosphatase 29 U/L Low 34-104 Alt 11 U/L N 7-52 Ast 17 U/L N 13-39 Egfr Non- 39.0 N >60 Egfr 50.2 N >60 49 Laboratory test 03/21/2015 [facility] C Reactive 11.87 mg/L High < 5.00 [address] [place] [address] [phone] Vancomycin Trough 34.6 g/mL High Laboratory test 03/06/2015 [facility] Urine Culture And SEE RESULT 51, [address] [place] [address] [phone] Urinalysis 03/06/2015 [facility] Urine Color Yellow N Profile [address] [place] [address] [phone] Urine Appearance Clear N Urine Specific Page 1.020 N 1.010-1.030 Urine pH 5.0 N 5-9 Urine Urobilinogen Negative N Negative Urine Ketones Negative N Negative Urine Protein Negative N Negative Urine Leukocytes Trace Abnormal Negative Urine Blood Negative N Negative * * Abnormal Negative 53 Urine Nitrite Negative N Negative Urine Bilirubin Negative N Negative Urine Glucose Negative N Negative Urine White Blood Cell Trace(0-5/hpf) N Absent Urine Red Blood Cell Absent N Absent Urine Bacteria Absent N Absent Urine Squamous Epithelial Cell Present Abnormal Absent CBC No Diff 03/06/2015 [facility] White Blood 9.2 10^3/uL N 3.5-10.[address] [place] [address] [phone] Red Blood Count 3.68 10^6/uL Low 4.0-5.4 Hemoglobin 12.0 g/dL Low 14.0-18.0 Hematocrit 36 % Low 42-52 Mean Corpuscular Volume 97 fL High 80-94 Mean Corpuscular Hemoglobin 32 pg High 27-31 Mean Corpuscular HGB Conc 34 g/dL N 31-36 Red Cell Distribution Width 13 % N 10.5-15 Platelet Count 347 10^3/uL N 150-450 Mean Platelet Volume 6 um3 Low 7.4-10.4 Inr/Protime 03/06/2015 [facility] Inr 1.20 High 0.89-1.[address] [place] [address] [phone] Laboratory test 03/06/2015 [facility] Partial 33.7 N 26.0- 36.3 [address] [place] [address] Time PTT [phone] Basic Metabolic 03/06/2015 [facility] Sodium 136 mmol/L N 133- [address] [place] [address] [phone] Potassium 4.2 mmol/L N 3.5-5.0 Chloride 101 mmol/L N 101-111 Co2 Carbon Dioxide 27 mmol/L N 22-32 Anion Gap 8 mmol/L N 2-11 Glucose 151 mg/dL High 70-100 Blood Urea Nitrogen 24 mg/dL N 6-24 Creatinine 1.64 mg/dL High 0.67-1.17 BUN/Creatinine Ratio 14.6 N 8-20 Calcium 9.0 mg/dL N 8.6-10.3 Egfr Non- 40.9 N >60 Egfr 52.7 N >60 55 Laboratory test 02/21/2015 [facility] Wound SEE RESULT [address] Culture/[place] [address] [phone] Laboratory test 02/02/2015 [facility] Wound SEE RESULT [address] Culture/[place] [address] [phone] Comp Metabolic 01/31/2014 [facility] Sodium 137 mmol/L N 133- [address] [place] [address] [phone] Potassium 4.8 mmol/L N 3.5-5.0 Chloride 106 mmol/L N 101-111 Co2 Carbon Dioxide 26 mmol/L N 22-32 Anion Gap 5 mmol/L N 2-11 Glucose 87 mg/dL N 70-100 Blood Urea Nitrogen 25 mg/dL High 6-24 Creatinine 1.61 mg/dL High 0.67-1.17 BUN/Creatinine Ratio 15.5 N 8-20 Calcium 8.8 mg/dL N 8.6-10.3 Total Protein 6.2 g/dL Low 6.4-8.9 Albumin 3.7 g/dL N 3.2-5.2 Globulin 2.5 g/dL N 2-4 Albumin/Globulin Ratio 1.5 N 1-3 Total Bilirubin 0.60 mg/dL N 0.2-1.0 Alkaline Phosphatase 45 U/L N 34-104 Alt 12 U/L N 7-52 Ast 16 U/L N 13-39 Egfr Non- 41.9 N >60 Egfr 53.9 N >60 58 Laboratory test 01/31/2014 [facility] C Reactive 19.26 mg/L High < 5.00 [address] [place] [address] [phone] CBC Auto Diff 01/31/2014 [facility] White Blood 6.1 N 4.8- 10.[address] Count 10^3/[place] [address] [phone] Red Blood Count 3.39 10^6/uL Low 4.0-5.4 Hemoglobin 10.7 g/dL Low 14.0-18.0 Hematocrit 31 % Low 42-52 Mean Corpuscular Volume 92 fL N 80-94 Mean Corpuscular Hemoglobin 32 pg High 27-31 Mean Corpuscular HGB Conc 34 g/dL N 31-36 Red Cell Distribution Width 14 % N 10.5-15 Platelet Count 253 10^3/uL N 150-450 Mean Platelet Volume 8 um3 N 7.4-10.4 Abs Neutrophils 4.1 10^3/uL N 1.5-7.7 Abs Lymphocytes 1.0 10^3/uL N 1.0-4.8 Abs Monocytes 0.6 10^3/uL N 0-0.8 Abs Eosinophils 0.5 10^3/uL N 0-0.6 Abs Basophils 0 10^3/uL N 0-0.2 Abs Nucleated RBC 0.01 10^3/uL N Granulocyte % 66.7 % N 38-83 Lymphocyte % 15.8 % Low 25-47 Monocyte % 9.2 % High 1-9 Eosinophil % 7.7 % High 0-6 Basophil % 0.6 % N 0-2 Nucleated Red Blood Cells % 0.2 N Laboratory test 01/31/2014 [facility] Erythrocyte Sed 27 mm/Hr N 0-[address] [place] [address] [phone] CBC Auto Diff 01/24/2014 [facility] White Blood 4.6 Low 4.8- 10.[address] Count 10^3/uL [place], [place] [id number] [phone] Red Blood Count 3.17 10^6/uL Low 4.0-5.4 Hemoglobin 10.1 g/dL Low 14.0-18.0 Hematocrit 29 % Low 42-52 Mean Corpuscular Volume 93 fL N 80-94 Mean Corpuscular Hemoglobin 32 pg High 27-31 Mean Corpuscular HGB Conc 34 g/dL N 31-36 Red Cell Distribution Width 14 % N 10.5-15 Platelet Count 224 10^3/uL N 150-450 Mean Platelet Volume 7 um3 Low 7.4-10.4 Abs Neutrophils 2.7 10^3/uL N 1.5-7.7 Abs Lymphocytes 0.9 10^3/uL Low 1.0-4.8 Abs Monocytes 0.6 10^3/uL N 0-0.8 Abs Eosinophils 0.4 10^3/uL N 0-0.6 Abs Basophils 0 10^3/uL N 0-0.2 Abs Nucleated RBC 0 10^3/uL N Granulocyte % 58.9 % N 38-83 Lymphocyte % 19.4 % Low 25-47 Monocyte % 12.7 % High 1-9 Eosinophil % 8.5 % High 0-6 Basophil % 0.5 % N 0-2 Nucleated Red Blood Cells % 0 N Laboratory test 01/24/2014 [facility] Erythrocyte Sed 29 mm/Hr N 0-[address] [place] [address] [phone] Comp Metabolic 01/24/2014 [facility] Sodium 139 mmol/L N 133- [address] [place] [address] [phone] Potassium 5.0 mmol/L N 3.5-5.0 60 Chloride 108 mmol/L N 101-111 Co2 Carbon Dioxide 24 mmol/L N 22-32 Anion Gap 7 mmol/L N 2-11 Glucose 87 mg/dL N 70-100 Blood Urea Nitrogen 32 mg/dL High 6-24 Creatinine 1.58 mg/dL High 0.67-1.17 BUN/Creatinine Ratio 20.3 High 8-20 Calcium 8.8 mg/dL N 8.6-10.3 Total Protein 6.0 g/dL Low 6.4-8.9 Albumin 3.6 g/dL N 3.2-5.2 Globulin 2.4 g/dL N 2-4 Albumin/Globulin Ratio 1.5 N 1-3 Total Bilirubin 0.40 mg/dL N 0.2-1.0 Alkaline Phosphatase 38 U/L N 34-104 Alt 12 U/L N 7-52 Ast 17 U/L N 13-39 Egfr Non- 42.9 N >60 Egfr 55.1 N >60 61 Laboratory test 01/24/2014 [facility] C Reactive 2.10 mg/L N < 5.00 62 finding [address] [place] [address] [phone] Comp Metabolic 01/17/2014 [facility] Sodium 138 mmol/L N 133- [address] [place] [address] [phone] Potassium 4.2 mmol/L N 3.5-5.0 63 Chloride 106 mmol/L N 101-111 Co2 Carbon Dioxide 27 mmol/L N 22-32 Anion Gap 5 mmol/L N 2-11 Glucose 102 mg/dL High 70-100 Blood Urea Nitrogen 30 mg/dL High 6-24 Creatinine 1.67 mg/dL High 0.67-1.17 BUN/Creatinine Ratio 18.0 N 8-20 Calcium 8.8 mg/dL N 8.6-10.3 Total Protein 5.9 g/dL Low 6.4-8.9 Albumin 3.6 g/dL N 3.2-5.2 Globulin 2.3 g/dL N 2-4 Albumin/Globulin Ratio 1.6 N 1-3 Total Bilirubin 0.30 mg/dL N 0.2-1.0 Alkaline Phosphatase 41 U/L N 34-104 Alt 9 U/L N 7-52 Ast 14 U/L N 13-39 Egfr Non- 40.2 N >60 Egfr 51.7 N >60 64 Laboratory test 01/17/2014 [facility] C Reactive 2.80 mg/L N < 5.[address] [place] [address] [phone] CBC Auto Diff 01/17/2014 [facility] White Blood 4.6 Low 4.8- 10.8 101 Count 10^3/[place] [address] [phone] Red Blood Count 3.22 10^6/uL Low 4.0-5.4 Hemoglobin 10.1 g/dL Low 14.0-18.0 Hematocrit 30 % Low 42-52 Mean Corpuscular Volume 93 fL N 80-94 Mean Corpuscular Hemoglobin 31 pg N 27-31 Mean Corpuscular HGB Conc 34 g/dL N 31-36 Red Cell Distribution Width 14 % N 10.5-15 Platelet Count 196 10^3/uL N 150-450 Mean Platelet Volume 7 um3 Low 7.4-10.4 Abs Neutrophils 2.7 10^3/uL N 1.5-7.7 Abs Lymphocytes 0.9 10^3/uL Low 1.0-4.8 Abs Monocytes 0.6 10^3/uL N 0-0.8 Abs Eosinophils 0.4 10^3/uL N 0-0.6 Abs Basophils 0 10^3/uL N 0-0.2 Abs Nucleated RBC 0 10^3/uL N Granulocyte % 58.4 % N 38-83 Lymphocyte % 20.0 % Low 25-47 Monocyte % 13.3 % High 1-9 Eosinophil % 7.8 % High 0-6 Basophil % 0.5 % N 0-2 Nucleated Red Blood Cells % 0 N Laboratory test 01/17/2014 [facility] Erythrocyte Sed 37 mm/Hr N 0-[address] [place] [address] [phone] CBC Auto Diff 01/10/2014 [facility] White Blood 5.2 N 4.8- 10.[address] Count 10^3/[place] [address] [phone] Red Blood Count 2.89 10^6/uL Low 4.0-5.4 Hemoglobin 9.3 g/dL Low 14.0-18.0 Hematocrit 28 % Low 42-52 Mean Corpuscular Volume 96 fL High 80-94 Mean Corpuscular Hemoglobin 32 pg High 27-31 Mean Corpuscular HGB Conc 34 g/dL N 31-36 Red Cell Distribution Width 14 % N 10.5-15 Platelet Count 257 10^3/uL N 150-450 Mean Platelet Volume 8 um3 N 7.4-10.4 Abs Neutrophils 3.0 10^3/uL N 1.5-7.7 Abs Lymphocytes 1.1 10^3/uL N 1.0-4.8 Abs Monocytes 0.6 10^3/uL N 0-0.8 Abs Eosinophils 0.4 10^3/uL N 0-0.6 Abs Basophils 0 10^3/uL N 0-0.2 Abs Nucleated RBC 0 10^3/uL N Granulocyte % 58.4 % N 38-83 Lymphocyte % 21.3 % Low 25-47 Monocyte % 11.2 % High 1-9 Eosinophil % 8.5 % High 0-6 Basophil % 0.6 % N 0-2 Nucleated Red Blood Cells % 0.1 N Laboratory test 01/10/2014 [facility] Erythrocyte Sed 48 mm/Hr High 0-[address] [place] [address] [phone] Comp Metabolic 01/10/2014 [facility] Sodium 139 N 133-[address] mmol/[place] [address] [phone] Potassium 4.5 mmol/L N 3.5-5.0 66 Chloride 109 mmol/L N 101-111 Co2 Carbon Dioxide 26 mmol/L N 22-32 Anion Gap 4 mmol/L N 2-11 Glucose 78 mg/dL N 70-100 Blood Urea Nitrogen 34 mg/dL High 6-24 Creatinine 1.44 mg/dL High 0.67-1.17 BUN/Creatinine Ratio 23.6 High 8-20 Calcium 8.9 mg/dL N 8.6-10.3 Total Protein 6.2 g/dL Low 6.4-8.9 Albumin 3.7 g/dL N 3.2-5.2 Globulin 2.5 g/dL N 2-4 Albumin/Globulin Ratio 1.5 N 1-3 Total Bilirubin 0.30 mg/dL N 0.2-1.0 Alkaline Phosphatase 39 U/L N 34-104 Alt 9 U/L N 7-52 Ast 13 U/L N 13-39 Egfr Non- 47.7 N >60 Egfr 61.3 N >60 67 Laboratory test 01/10/2014 [facility] C Reactive 2.56 mg/L N < 5.00 [address] [place] [address] [phone] CBC Auto Diff 01/03/2014 [facility] White Blood 7.3 N 4.8- 10.[address] Count 10^3/[place] [address] [phone] Red Blood Count 3.20 10^6/uL Low 4.0-5.4 Hemoglobin 10.0 g/dL Low 14.0-18.0 Hematocrit 30 % Low 42-52 Mean Corpuscular Volume 95 fL High 80-94 Mean Corpuscular Hemoglobin 31 pg N 27-31 Mean Corpuscular HGB Conc 33 g/dL N 31-36 Red Cell Distribution Width 14 % N 10.5-15 Platelet Count 313 10^3/uL N 150-450 Mean Platelet Volume 7 um3 Low 7.4-10.4 Abs Neutrophils 5.2 10^3/uL N 1.5-7.7 Abs Lymphocytes 1.2 10^3/uL N 1.0-4.8 Abs Monocytes 0.5 10^3/uL N 0-0.8 Abs Eosinophils 0.4 10^3/uL N 0-0.6 Abs Basophils 0 10^3/uL N 0-0.2 Abs Nucleated RBC 0.03 10^3/uL N Granulocyte % 70.4 % N 38-83 Lymphocyte % 16.1 % Low 25-47 Monocyte % 7.0 % N 1-9 Eosinophil % 5.9 % N 0-6 Basophil % 0.6 % N 0-2 Nucleated Red Blood Cells % 0.4 N Laboratory test 01/03/2014 [facility] Erythrocyte Sed 48 mm/Hr High 0-[address] [place] [address] [phone] Laboratory test 01/03/2014 [facility] C Reactive 4.51 mg/L N < 5.00 [address] [place] [address] [phone] Comp Metabolic 01/03/2014 [facility] Sodium 137 N 133-[address] mmol/[place] [address] [phone] Potassium 4.8 mmol/L N 3.5-5.0 70 Chloride 105 mmol/L N 101-111 Co2 Carbon Dioxide 27 mmol/L N 22-32 Anion Gap 5 mmol/L N 2-11 Glucose 81 mg/dL N 70-100 Blood Urea Nitrogen 26 mg/dL High 6-24 Creatinine 1.50 mg/dL High 0.67-1.17 BUN/Creatinine Ratio 17.3 N 8-20 Calcium 8.9 mg/dL N 8.6-10.3 Total Protein 6.2 g/dL Low 6.4-8.9 Albumin 3.5 g/dL N 3.2-5.2 Globulin 2.7 g/dL N 2-4 Albumin/Globulin Ratio 1.3 N 1-3 Total Bilirubin 0.40 mg/dL N 0.2-1.0 Alkaline Phosphatase 36 U/L N 34-104 Alt 12 U/L N 7-52 Ast 15 U/L N 13-39 Egfr Non- 45.5 N >60 Egfr 58.5 N >60 71 Laboratory test 12/27/2013 [facility] Erythrocyte Sed 47 mm/Hr High 0-[address] [place] [address] [phone] CBC Auto Diff 12/27/2013 [facility] White Blood 7.3 N 4.8- 10.[address] Count 10^3/[place] [address] [phone] Red Blood Count 2.91 10^6/uL Low 4.0-5.4 Hemoglobin 9.1 g/dL Low 14.0-18.0 Hematocrit 27 % Low 42-52 Mean Corpuscular Volume 94 fL N 80-94 Mean Corpuscular Hemoglobin 31 pg N 27-31 Mean Corpuscular HGB Conc 33 g/dL N 31-36 Red Cell Distribution Width 13 % N 10.5-15 Platelet Count 301 10^3/uL N 150-450 Mean Platelet Volume 7 um3 Low 7.4-10.4 Abs Neutrophils 5.3 10^3/uL N 1.5-7.7 Abs Lymphocytes 0.9 10^3/uL Low 1.0-4.8 Abs Monocytes 0.7 10^3/uL N 0-0.8 Abs Eosinophils 0.4 10^3/uL N 0-0.6 Abs Basophils 0 10^3/uL N 0-0.2 Abs Nucleated RBC 0 10^3/uL N Granulocyte % 73.2 % N 38-83 Lymphocyte % 12.3 % Low 25-47 Monocyte % 8.9 % N 1-9 Eosinophil % 5.1 % N 0-6 Basophil % 0.5 % N 0-2 Nucleated Red Blood Cells % 0 N Laboratory test 12/27/2013 [facility] C Reactive 22.92 mg/L High < 5.00 [address] [place] [address] [phone] Basic Metabolic 12/27/2013 [facility] Sodium 136 mmol/L N 133- [address] [place] [address] [phone] Potassium 4.9 mmol/L N 3.5-5.0 73 Chloride 106 mmol/L N 101-111 Co2 Carbon Dioxide 26 mmol/L N 22-32 Anion Gap 4 mmol/L N 2-11 Glucose 125 mg/dL High 70-100 Blood Urea Nitrogen 26 mg/dL High 6-24 Creatinine 1.81 mg/dL High 0.67-1.17 BUN/Creatinine Ratio 14.4 N 8-20 Calcium 8.3 mg/dL Low 8.6-10.3 Egfr Non- 36.6 N >60 Egfr 47.1 N >60 74 Wound 12/24/2013 [facility] Wound/Misc (SEE NOTE) 75 Culture/Sensi [address] [address] Stain [phone] Wound 12/20/2013 [facility] Wound/Misc (SEE NOTE) 76, 77 Culture/Sensi [address] [place] [address] Stain [phone] Wound 12/14/2013 [facility] Wound/Misc (SEE NOTE) 78 Culture/Sensi [address] [place] [address] Stain [phone] 1 Because ethnic data is not always readily available, this report includes an eGFR for both -Americans and non- Americans. The National Kidney Disease Education Program (NKDEP) does not endorse the use of the MDRD equation for patients that are not between the ages of 18 and 70, are , have extremes of body size, muscle mass, or nutritional status, or are non- or non-. According to the National Kidney Foundation, irrespective of diagnosis, the stage of the disease is based on the level of kidney function: Stage Description GFR(mL/min/1.73 m(2)) 1 Kidney damage with normal or decreased GFR 90 2 Kidney damage with mild decrease in GFR 60-89 3 Moderate decrease in GFR 30-59 4 Severe decrease in GFR 15-29 5 Kidney failure <15 (or dialysis) 2 Acute inflammation: >10.00 3 Because ethnic data is not always readily available, this report includes an eGFR for both -Americans and non- Americans. The National Kidney Disease Education Program (NKDEP) does not endorse the use of the MDRD equation for patients that are not between the ages of 18 and 70, are , have extremes of body size, muscle mass, or nutritional status, or are non- or non-. According to the National Kidney Foundation, irrespective of diagnosis, the stage of the disease is based on the level of kidney function: Stage Description GFR(mL/min/1.73 m(2)) 1 Kidney damage with normal or decreased GFR 90 2 Kidney damage with mild decrease in GFR 60-89 3 Moderate decrease in GFR 30-59 4 Severe decrease in GFR 15-29 5 Kidney failure <15 (or dialysis) 4 Acute inflammation: >10.00 5 Because ethnic data is not always readily available, this report includes an eGFR for both -Americans and non- Americans. The National Kidney Disease Education Program (NKDEP) does not endorse the use of the MDRD equation for patients that are not between the ages of 18 and 70, are , have extremes of body size, muscle mass, or nutritional status, or are non- or non-. According to the National Kidney Foundation, irrespective of diagnosis, the stage of the disease is based on the level of kidney function: Stage Description GFR(mL/min/1.73 m(2)) 1 Kidney damage with normal or decreased GFR 90 2 Kidney damage with mild decrease in GFR 60-89 3 Moderate decrease in GFR 30-59 4 Severe decrease in GFR 15-29 5 Kidney failure <15 (or dialysis) 6 Acute inflammation: >10.00 7 Because ethnic data is not always readily available, this report includes an eGFR for both -Americans and non- Americans. The National Kidney Disease Education Program (NKDEP) does not endorse the use of the MDRD equation for patients that are not between the ages of 18 and 70, are , have extremes of body size, muscle mass, or nutritional status, or are non- or non-. According to the National Kidney Foundation, irrespective of diagnosis, the stage of the disease is based on the level of kidney function: Stage Description GFR(mL/min/1.73 m(2)) 1 Kidney damage with normal or decreased GFR 90 2 Kidney damage with mild decrease in GFR 60-89 3 Moderate decrease in GFR 30-59 4 Severe decrease in GFR 15-29 5 Kidney failure <15 (or dialysis) 8 Acute inflammation: >10.00 9 SEE RESULT BELOW Name: EDGAR WELLS : [address]: Govind Guerra MD Acct: [id number] Unit: [id number] AGE: 82 Location: INF Re06/08/17 SEX: M Status: REG REF SPEC: [id number] NELY: 06/08/17-1018 [facility] DR: Govind Guerra MD REQ: [id number] RECD: 06/08/17-1029 STATUS: YAIR VENTURA DR: Pooja Kinney MD _ SOURCE: BLOOD,VENO SPDESC: ORDERED: Blood Cult Procedure Result Reported Site Aerobic Culture Bottle Final 06/13/17- 1030 ML No Growth Day 5 Anaerobic Culture Bottle Final 06/13/17- 1030 ML No Growth Day 5 * ML - Main Lab . END OF REPORT DEPARTMENT OF PATHOLOGY, [address] [place] [address] Ean Jiménez M.D. Director [facility] # [id number] 10 SEE RESULT BELOW Name: EDGAR WELLS : [address]: Govind Guerra MD Acct: [id number] Unit: [id number] AGE: 82 [facility] SEX: M Status: REG REF SPEC: [id number] NELY: 06/06/[address]: Govind Guerra MD REQ: [id number] RECD: 06/06/17 STATUS: COMP _ SOURCE: BLOOD,VENO SPDESC: ORDERED: Blood Cult COMMENTS: Verbal to by [id number] at 1503 on 06/07/17. Results read back accurately. Procedure Result Reported Site Aerobic Culture Bottle Final 06/08/17- 921 ML Aerobic Bottle Gram Stain Gram Positive Cocci resembling Staph Organism 1 STAPHYLOCOCCUS AUREUS Please refer to [id number] culture aerobic bottle for sensitivity testing. Anaerobic Culture Bottle Final 06/11/17- 809 ML No Growth Day 5 * ML - Main Lab . END OF REPORT DEPARTMENT OF PATHOLOGY, [address] [place] [address] Ean Jiménez M.D. Director [facility] # [id number] 11 Acute inflammation: >10.00 12 Because ethnic data is not always readily available, this report includes an eGFR for both -Americans and non- Americans. The National Kidney Disease Education Program (NKDEP) does not endorse the use of the MDRD equation for patients that are not between the ages of 18 and 70, are , have extremes of body size, muscle mass, or nutritional status, or are non- or non-. According to the National Kidney Foundation, irrespective of diagnosis, the stage of the disease is based on the level of kidney function: Stage Description GFR(mL/min/1.73 m(2)) 1 Kidney damage with normal or decreased GFR 90 2 Kidney damage with mild decrease in GFR 60-89 3 Moderate decrease in GFR 30-59 4 Severe decrease in GFR 15-29 5 Kidney failure <15 (or dialysis) 13 SEE RESULT BELOW Name: EDGAR WELLS : [address]: Govind Guerra MD Acct: [id number] Unit: [id number] AGE: 82 Location: [facility] Re06/06/17 SEX: M Status: REG REF SPEC: [id number] NELY: 06/06/17-801 [facility] DR: Govind Guerra MD REQ: [id number] RECD: 06/06/17 STATUS: YAIR VENTURA DR: Pooja Kinney MD _ SOURCE: BLOOD,VENO SPDESC: ORDERED: Blood Cult, MRSA/SA BC PCR COMMENTS: Verbal to DR. TAM by [id number] at 0901 on 06/07/17. Results read back accurately. Procedure Result Reported Site Aerobic Culture Bottle Final 06/08/17- 0832 ML Aerobic Bottle Gram Stain Gram Positive Cocci resembling Staph Organism 1 STAPHYLOCOCCUS AUREUS 1. STAPHYLOCOCCUS AUREUS M.I.C. RX --------- ------ Penicillin R Clindamycin <=0.25 S Erythromycin <=0.25 S Gentamicin <=0.5 S Linezolid 2 S Oxacillin 0.5 S * Quinupristin/Dalfopristin <=0.25 S Rifampin <=0.5 S Tetracycline <=1 S Doxycycline - Deduced S * Minocycline - Deduced S Trimethoprim/Sulfamethoxazole <=10 S Vancomycin <=0.5 S Imipenem-Deduced S * Ampicillin/Sulbactam-Deduced S Cefazolin-Deduced S CONTINUED ON NEXT PAGE DEPARTMENT OF PATHOLOGY, [address] [place] [address] Ean Jiménez M.D. Director [facility] # [id number] Patient: EDGAR WELLS [id number] (Continued) Specimen: [id number] Collected: 06/06/17 Received: 06/06/17 (Continued) Procedure Result Reported Site Aerobic Culture Bottle Final (continued) * These antibiotics are not available in the [facility] Formulary Contact the Microbiology Department for any additional antibiotic reporting. Anaerobic Culture Bottle Final 06/11/17- 10 ML No Growth Day 5 MRSA/S. aureus Blood Cult PCR Final 06/07/17- 42 ML Organism 1 MRSA NEGATIVE Organism 2 S.AUREUS POSITIVE * - [facility] . END OF REPORT DEPARTMENT OF PATHOLOGY, [address] [place] [address] Ean Jiménez M.D. Director [facility] # [id number] 14 SURGERY DATE 11/06/15 [facility], INPATIENT 15 SURGERY DATE 11/06/15 [facility], INPATIENT 16 Because ethnic data is not always readily available, this report includes an eGFR for both -Americans and non- Americans. The National Kidney Disease Education Program (NKDEP) does not endorse the use of the MDRD equation for patients that are not between the ages of 18 and 70, are , have extremes of body size, muscle mass, or nutritional status, or are non- or non-. According to the National Kidney Foundation, irrespective of diagnosis, the stage of the disease is based on the level of kidney function: Stage Description GFR(mL/min/1.73 m(2)) 1 Kidney damage with normal or decreased GFR 90 2 Kidney damage with mild decrease in GFR 60-89 3 Moderate decrease in GFR 30-59 4 Severe decrease in GFR 15-29 5 Kidney failure <15 (or dialysis) 17 SEE RESULT BELOW Name: EDGAR WELLS : [address]: Govind Guerra MD Acct: [id number] Unit: [id number] AGE: 80 Location: [facility] Re10/17/15 SEX: M Status: REG REF SPEC: [id number] NELY: 10/17/15-[address] [facility] [address]: Govind Guerra MD REQ: [id number] RECD: 10/17/15-1207 STATUS: COMP _ SOURCE: WOUND SPDESC: ORDERED: Culture Stain COMMENTS: [id number] Specimen Description plantar left foot wound Procedure Result Reported Site Wound/Misc Gram Stain Final 10/17/15- 1513 ML No Neutrophils Observed 1+ Gram Positive Cocci Wound/Misc Culture Final 10/20/15- 1011 ML Organism 1 ENTEROCOCCUS FAECALIS Quantity 1+ 1. ENTEROCOCCUS FAECALIS M.I.C. RX --------- ------ Ampicillin <=2 S Penicillin 2 S Ciprofloxacin 1 S Erythromycin 1 I Gentamicin High Level S Levofloxacin 1 S Linezolid 2 S Nitrofurantoin <=16 S * Quinupristin/Dalfopristin 4 R * Streptomycin High Level S Tetracycline >=16 R Tigecycline <=0.12 S Vancomycin 2 S Imipenem-Deduced S CONTINUED ON NEXT PAGE * ML=Testing performed at Main Lab DEPARTMENT OF PATHOLOGY, [address] [place] [address] Ean Jiménez M.D. Director [facility] # [id number] Patient: GUALBERTOLIZZYEDGAR Coreas [id number] (Continued) Specimen: [id number] Collected: 10/17/15-1024 Received: 10/17/15-1207 (Continued) Procedure Result Reported Site Wound/Misc Culture Final (continued) 10/20/15- 1011 1. ENTEROCOCCUS FAECALIS (continued) Gabriella RX --------- ------ * Ampicillin/Sulbactam-Deduced S * These antibiotics are not available in the [facility] Formulary Contact the Microbiology Department for any additional antibiotic reporting. * ML - MAIN LAB ([facility]) . END OF REPORT * ML=Testing performed at Main Lab DEPARTMENT OF PATHOLOGY, [address] [place] [address] Ean Jiménez M.D. Director [facility] # [id number] 18 Skiver Operator: [id number] MOLIVIATIS VERONICA 19 Skiver Operator: [id number] MOLIVIATIS VERONICA 20 Skiver Operator: [id number] MOLIVIATIS VERONICA 21 Skiver Operator: [id number] MOLSANDYIATIS VERONICA 22 Skiver Operator: [id number] MOLIVIATIS VERONICA 23 Skiver Operator: [id number] MOLIVIATIS VERONICA 24 Skiver Operator: [id number] MOLIVIATIS VERONICA 25 Skiver Operator: [id number] MOLIVIATIS VERONICA 26 Skiver Operator: [id number] MOLIVIATIS VERONICA 27 Skiver Operator: [id number] MOLIVIATIS VERONICA 28 Skiver Operator: [id number] MOLIVIATIS VERONICA 29 Skiver Operator: [id number] MOLIVIATIS VERONICA 30 Skiver Operator: [id number] MOLIVIATIS VERONICA 31 Skiver Operator: [id number] MOLIVIATIS VERONICA 32 [id number] 33 SEE RESULT BELOW Name: EDGAR WELLS : [address]: Rafy Witt MD Acct: [id number] Unit: [id number] AGE: 80 Location: [facility] Re07/05/15 SEX: M Status: REG REF SPEC: [id number] NELY: 07/05/15-[address]: Rafy Witt MD REQ: [id number] RECD: 07/05/15 STATUS: COMP _ SOURCE: WOUND SPDESC: ORDERED: Culture Stain COMMENTS: [id number] Procedure Result Reported Site Wound/Misc Gram Stain Final 07/06/15- 1105 ML 2+ Nucleated Cells No Neutrophils Observed 2+ Gram Positive Cocci 1+ Gram Positive Bacilli Wound/Misc Culture Final 07/07/15- 1040 ML Organism 1 NORMAL BRONSON Quantity 1+ * ML - MAIN LAB ([facility]) . END OF REPORT * ML=Testing performed at Main Lab DEPARTMENT OF PATHOLOGY, [address] [place] [address] Ean Jiménez M.D. Director [facility] # [id number] 34 1ST DOSE 04/23/15 @ 1338 35 Because ethnic data is not always readily available, this report includes an eGFR for both -Americans and non- Americans. The National Kidney Disease Education Program (NKDEP) does not endorse the use of the MDRD equation for patients that are not between the ages of 18 and 70, are , have extremes of body size, muscle mass, or nutritional status, or are non- or non-. According to the National Kidney Foundation, irrespective of diagnosis, the stage of the disease is based on the level of kidney function: Stage Description GFR(mL/min/1.73 m(2)) 1 Kidney damage with normal or decreased GFR 90 2 Kidney damage with mild decrease in GFR 60-89 3 Moderate decrease in GFR 30-59 4 Severe decrease in GFR 15-29 5 Kidney failure <15 (or dialysis) 36 1ST DOSE 04/23/15 @ 1330 37 Acute inflammation: >10.00 38 Because ethnic data is not always readily available, this report includes an eGFR for both -Americans and non- Americans. The National Kidney Disease Education Program (NKDEP) does not endorse the use of the MDRD equation for patients that are not between the ages of 18 and 70, are , have extremes of body size, muscle mass, or nutritional status, or are non- or non-. According to the National Kidney Foundation, irrespective of diagnosis, the stage of the disease is based on the level of kidney function: Stage Description GFR(mL/min/1.73 m(2)) 1 Kidney damage with normal or decreased GFR 90 2 Kidney damage with mild decrease in GFR 60-89 3 Moderate decrease in GFR 30-59 4 Severe decrease in GFR 15-29 5 Kidney failure <15 (or dialysis) 39 Acute inflammation: >10.00 40 Because ethnic data is not always readily available, this report includes an eGFR for both -Americans and non- Americans. The National Kidney Disease Education Program (NKDEP) does not endorse the use of the MDRD equation for patients that are not between the ages of 18 and 70, are , have extremes of body size, muscle mass, or nutritional status, or are non- or non-. According to the National Kidney Foundation, irrespective of diagnosis, the stage of the disease is based on the level of kidney function: Stage Description GFR(mL/min/1.73 m(2)) 1 Kidney damage with normal or decreased GFR 90 2 Kidney damage with mild decrease in GFR 60-89 3 Moderate decrease in GFR 30-59 4 Severe decrease in GFR 15-29 5 Kidney failure <15 (or dialysis) 41 Acute inflammation: >10.00 42 Because ethnic data is not always readily available, this report includes an eGFR for both -Americans and non- Americans. The National Kidney Disease Education Program (NKDEP) does not endorse the use of the MDRD equation for patients that are not between the ages of 18 and 70, are , have extremes of body size, muscle mass, or nutritional status, or are non- or non-. According to the National Kidney Foundation, irrespective of diagnosis, the stage of the disease is based on the level of kidney function: Stage Description GFR(mL/min/1.73 m(2)) 1 Kidney damage with normal or decreased GFR 90 2 Kidney damage with mild decrease in GFR 60-89 3 Moderate decrease in GFR 30-59 4 Severe decrease in GFR 15-29 5 Kidney failure <15 (or dialysis) 43 LAST VANCO 04/02/15 @ 1330 44 Acute inflammation: >10.00 45 LAST DOSE 03/26/15 @1330 46 Because ethnic data is not always readily available, this report includes an eGFR for both -Americans and non- Americans. The National Kidney Disease Education Program (NKDEP) does not endorse the use of the MDRD equation for patients that are not between the ages of 18 and 70, are , have extremes of body size, muscle mass, or nutritional status, or are non- or non-. According to the National Kidney Foundation, irrespective of diagnosis, the stage of the disease is based on the level of kidney function: Stage Description GFR(mL/min/1.73 m(2)) 1 Kidney damage with normal or decreased GFR 90 2 Kidney damage with mild decrease in GFR 60-89 3 Moderate decrease in GFR 30-59 4 Severe decrease in GFR 15-29 5 Kidney failure <15 (or dialysis) 47 LAST DOSE 03/26/15 @1330 48 Acute inflammation: >10.00 49 Because ethnic data is not always readily available, this report includes an eGFR for both -Americans and non- Americans. The National Kidney Disease Education Program (NKDEP) does not endorse the use of the MDRD equation for patients that are not between the ages of 18 and 70, are , have extremes of body size, muscle mass, or nutritional status, or are non- or non-. According to the National Kidney Foundation, irrespective of diagnosis, the stage of the disease is based on the level of kidney function: Stage Description GFR(mL/min/1.73 m(2)) 1 Kidney damage with normal or decreased GFR 90 2 Kidney damage with mild decrease in GFR 60-89 3 Moderate decrease in GFR 30-59 4 Severe decrease in GFR 15-29 5 Kidney failure <15 (or dialysis) 50 Acute inflammation: >10.00 51 AA 03/13 52 SEE RESULT BELOW Name: EDGAR WELLS : [address]: Rafy Witt MD Acct: [id number] Unit: [id number] AGE: 79 Location: PAT Re03/06/15 SEX: M Status: REG REF SPEC: [id number] NELY: 03/06/15-[address]: Rafy Witt MD REQ: [id number] RECD: 03/06/15 STATUS: YAIR VENTURA DR: Pooja Kinney MD _ SOURCE: URINE SPDESC: ORDERED: Urine Culture COMMENTS: HELENE 03/13 QUERIES: Urine Source: Clean Catch Procedure Result Reported Site Urine Culture Final 03/07/15- 1302 ML No Growth (<1,000 CFU/mL) * ML - MAIN LAB ([facility]) . END OF REPORT * ML=Testing performed at Main Lab DEPARTMENT OF PATHOLOGY, [address] [place] [address] Ean Jiménez M.D. Director [facility] # [id number] 53 *Ascorbic acid is present which may interfere with detection of blood. 54 AA 03/13 55 Because ethnic data is not always readily available, this report includes an eGFR for both -Americans and non- Americans. The National Kidney Disease Education Program (NKDEP) does not endorse the use of the MDRD equation for patients that are not between the ages of 18 and 70, are , have extremes of body size, muscle mass, or nutritional status, or are non- or non-. According to the National Kidney Foundation, irrespective of diagnosis, the stage of the disease is based on the level of kidney function: Stage Description GFR(mL/min/1.73 m(2)) 1 Kidney damage with normal or decreased GFR 90 2 Kidney damage with mild decrease in GFR 60-89 3 Moderate decrease in GFR 30-59 4 Severe decrease in GFR 15-29 5 Kidney failure <15 (or dialysis) 56 SEE RESULT BELOW Name: EDGAR WELLS : [address]: Govind Guerra MD Acct: [id number] Unit: [id number] AGE: 79 Location: [facility] Re02/21/15 SEX: M Status: REG REF SPEC: [id number] NELY: 02/21/15-[address] [facility] [address]: Govind Guerra MD REQ: [id number] RECD: 02/21/15 STATUS: COMP _ SOURCE: WOUND SPDESC: ORDERED: Culture Stain Specimen Description left foot Procedure Result Reported Site Wound/Misc Gram Stain Final 02/21/15- 1511 ML 2+ Neutrophils 3+ Gram Positive Cocci 2+ Gram Positive Bacilli 2+ Gram Negative Coccobacilli Intracellular Wound/Misc Culture Final 02/23/15- 1126 ML Organism 1 NORMAL BRONSON Quantity 3+ * ML - MAIN LAB ([facility]) . END OF REPORT * ML=Testing performed at Main Lab DEPARTMENT OF PATHOLOGY, [address] [place] [address] Ean Jiménez M.D. Director [facility] # [id number] 57 SEE RESULT BELOW Name: EDGAR WELLS : [address]: Govind Guerra MD Acct: [id number] Unit: [id number] AGE: 79 Location: [facility] Re02/02/15 SEX: M Status: REG REF SPEC: [id number] NELY: 02/02/15 [facility] DR: Govind Guerra MD REQ: [id number] RECD: 02/02/15 STATUS: COMP _ SOURCE: WOUND SPDESC: ORDERED: Culture Stain Specimen Description left foot ulcer Procedure Result Reported Site Wound/Misc Gram Stain Final 02/03/15- 0859 ML 1+ Neutrophils 2+ Epithelial Cells 4+ Gram Positive Cocci 2+ Gram Negative Bacilli Wound/Misc Culture Final 02/04/15- 1058 ML Organism 1 NORMAL BRONSON Quantity 2+ * ML - MAIN LAB ([facility]) . END OF REPORT * ML=Testing performed at Main Lab DEPARTMENT OF PATHOLOGY, [address] [place] [address] Ean Jiménez M.D. Director [facility] # [id number] 58 Because ethnic data is not always readily available, this report includes an eGFR for both -Americans and non- Americans. The National Kidney Disease Education Program (NKDEP) does not endorse the use of the MDRD equation for patients that are not between the ages of 18 and 70, are , have extremes of body size, muscle mass, or nutritional status, or are non- or non-. According to the National Kidney Foundation, irrespective of diagnosis, the stage of the disease is based on the level of kidney function: Stage Description GFR(mL/min/1.73 m(2)) 1 Kidney damage with normal or decreased GFR 90 2 Kidney damage with mild decrease in GFR 60-89 3 Moderate decrease in GFR 30-59 4 Severe decrease in GFR 15-29 5 Kidney failure <15 (or dialysis) 59 Acute inflammation: >10.00 60 Potassium reference range changed effective 12/26/13 61 Because ethnic data is not always readily available, this report includes an eGFR for both -Americans and non- Americans. The National Kidney Disease Education Program (NKDEP) does not endorse the use of the MDRD equation for patients that are not between the ages of 18 and 70, are , have extremes of body size, muscle mass, or nutritional status, or are non- or non-. According to the National Kidney Foundation, irrespective of diagnosis, the stage of the disease is based on the level of kidney function: Stage Description GFR(mL/min/1.73 m(2)) 1 Kidney damage with normal or decreased GFR 90 2 Kidney damage with mild decrease in GFR 60-89 3 Moderate decrease in GFR 30-59 4 Severe decrease in GFR 15-29 5 Kidney failure <15 (or dialysis) 62 Acute inflammation: >10.00 63 Potassium reference range changed effective 12/26/13 64 Because ethnic data is not always readily available, this report includes an eGFR for both -Americans and non- Americans. The National Kidney Disease Education Program (NKDEP) does not endorse the use of the MDRD equation for patients that are not between the ages of 18 and 70, are , have extremes of body size, muscle mass, or nutritional status, or are non- or non-. According to the National Kidney Foundation, irrespective of diagnosis, the stage of the disease is based on the level of kidney function: Stage Description GFR(mL/min/1.73 m(2)) 1 Kidney damage with normal or decreased GFR 90 2 Kidney damage with mild decrease in GFR 60-89 3 Moderate decrease in GFR 30-59 4 Severe decrease in GFR 15-29 5 Kidney failure <15 (or dialysis) 65 Acute inflammation: >10.00 66 Potassium reference range changed effective 12/26/13 67 Because ethnic data is not always readily available, this report includes an eGFR for both -Americans and non- Americans. The National Kidney Disease Education Program (NKDEP) does not endorse the use of the MDRD equation for patients that are not between the ages of 18 and 70, are , have extremes of body size, muscle mass, or nutritional status, or are non- or non-. According to the National Kidney Foundation, irrespective of diagnosis, the stage of the disease is based on the level of kidney function: Stage Description GFR(mL/min/1.73 m(2)) 1 Kidney damage with normal or decreased GFR 90 2 Kidney damage with mild decrease in GFR 60-89 3 Moderate decrease in GFR 30-59 4 Severe decrease in GFR 15-29 5 Kidney failure <15 (or dialysis) 68 Acute inflammation: >10.00 69 Acute inflammation: >10.00 70 Potassium reference range changed effective 12/26/13 71 Because ethnic data is not always readily available, this report includes an eGFR for both -Americans and non- Americans. The National Kidney Disease Education Program (NKDEP) does not endorse the use of the MDRD equation for patients that are not between the ages of 18 and 70, are , have extremes of body size, muscle mass, or nutritional status, or are non- or non-. According to the National Kidney Foundation, irrespective of diagnosis, the stage of the disease is based on the level of kidney function: Stage Description GFR(mL/min/1.73 m(2)) 1 Kidney damage with normal or decreased GFR 90 2 Kidney damage with mild decrease in GFR 60-89 3 Moderate decrease in GFR 30-59 4 Severe decrease in GFR 15-29 5 Kidney failure <15 (or dialysis) 72 Acute inflammation: >10.00 73 Potassium reference range changed effective 12/26/13 74 Because ethnic data is not always readily available, this report includes an eGFR for both -Americans and non- Americans. The National Kidney Disease Education Program (NKDEP) does not endorse the use of the MDRD equation for patients that are not between the ages of 18 and 70, are , have extremes of body size, muscle mass, or nutritional status, or are non- or non-. According to the National Kidney Foundation, irrespective of diagnosis, the stage of the disease is based on the level of kidney function: Stage Description GFR(mL/min/1.73 m(2)) 1 Kidney damage with normal or decreased GFR 90 2 Kidney damage with mild decrease in GFR 60-89 3 Moderate decrease in GFR 30-59 4 Severe decrease in GFR 15-29 5 Kidney failure <15 (or dialysis) 75 RUN DATE: 12/27/13 [facility] LAB LIVE PAGE 1 RUN TIME: [address] [place] [address] Specimen Inquiry Name: EDGAR WELLS : [address]: Shandra HOOD Acct: [id number] Unit: [id number] AGE: 78 Location: [facility] Re12/24/13 SEX: M Status: REG REF SPEC: [id number] NELY: 12/24/13-[address]: Shandra HOOD REQ: [id number] RECD: 12/24/13 STATUS: COMP _ SOURCE: FOOT,LEFT SPDESC: ORDERED: Culture Stain QUERIES: Specimen Description LEFT FOOT ULCER Procedure Result Verified Site Wound/Misc Gram Stain Final 12/24/13- 1438 ML 3+ Epithelial Cells 2+ Neutrophils 1+ Gram Positive Bacilli 1+ Gram Positive Cocci Wound/Misc Culture Final 12/27/13- 0822 ML Organism 1 PSEUDOMONAS AERUGINOSA Quantity 2+ Organism 2 ENTEROCOCCUS FAECALIS Quantity 1+ 1. PSEUDOMONAS AERUGINOSA M.I.C. RX --------- ------ Ampicillin >=32 R Cefazolin >=64 R Cefepime 16 I Ceftriaxone >=64 R Ciprofloxacin >=4 R Gentamicin <=1 S Levofloxacin >=8 R Meropenem >=16 R Nitrofurantoin >=512 R Tetracycline >=16 R Pipercillin/Tazobactam 32 S Trimethoprim/Sulfamethoxazole >=320 R Amoxicillin/Clavulanic Acid >=32 R CONTINUED ON NEXT PAGE * ML=Testing performed at Main Lab DEPARTMENT OF PATHOLOGY, [facility] [employer] [place] [address] Ean Jiménez M.D. Director [facility] # [id number] RUN DATE: 12/27/13 [facility] LAB LIVE PAGE 2 RUN TIME: 821 [facility] [employer] [place] [address] Specimen Inquiry Patient: EDGAR WELLS [id number] (Continued) Specimen: [id number] Collected: 12/24/13 Received: 12/24/13 (Continued) Procedure Result Verified Site Wound/Misc Culture Final (continued) 12/27/13821 2. ENTEROCOCCUS FAECALIS M.I.C. RX --------- ------ Ampicillin <=2 S Penicillin 4 S Ciprofloxacin <=0.5 S Erythromycin >=8 R Gentamicin High Level S Levofloxacin 1 S Linezolid 2 S Nitrofurantoin <=16 S * Quinupristin/Dalfopristin 8 R * Streptomycin High Level S Tetracycline >=16 R Tigecycline <=0.12 S Vancomycin 1 S Imipenem-Deduced S * Ampicillin/Sulbactam-Deduced S * These antibiotics are not available in the [facility] Formulary Contact the Microbiology Department for any additional antibiotic reporting. Contact the Microbiology Department for any additional antibiotic reporting. END OF REPORT * ML=Testing performed at Main Lab DEPARTMENT OF PATHOLOGY, [facility] [employer] [place], [place] [address] Ean Jiménez M.D. Director [facility] # [id number] 78 LEFT DEEP FOOT 77 RUN DATE: 12/20/13 [facility] LAB LIVE PAGE 1 RUN TIME: 1425 [facility] [employer] [place], [place] [address] Specimen Inquiry Name: EDGAR WELLS : [address]: Rafy Witt MD Acct: [id number] Unit: [id number] AGE: 78 Location: [place] Re12/20/13 SEX: M Status: REG SDC SPEC: [id number] NELY: 12/20/13 [facility] DR: Rafy Witt MD REQ: [id number] RECD: 12/20/132 STATUS: RES OTHR DR: Pooja Kinney MD _ SOURCE: WOUND SPDESC:OTHER ORDERED: Anaerobic Cult, Culture Stain COMMENTS: LEFT DEEP FOOT Procedure Result Verified Site Anaerobic Culture PENDING Wound/Misc Gram Stain Final 12/20/13- 1425 ML 1+ Neutrophils No Organisms Seen Wound/Misc Culture PENDING END OF REPORT * ML=Testing performed at Main Lab DEPARTMENT OF PATHOLOGY, [facility] [employer] [place] [address] Ean Jiménez M.D. Director CLIA # [id number] RUN DATE: 12/17/13 [facility] LAB LIVE PAGE 1 RUN TIME: 814 [facility] [employer] [place], [place] [address] Specimen Inquiry Name: EDGAR WELLS : [address]: Govind Guerra MD Acct: [id number] Unit: [id number] AGE: 78 Location: [facility] Re12/14/13 SEX: M Status: REG REF SPEC: [id number] NELY: 12/14/13 [facility] [address]: Govind Guerra MD REQ: [id number] RECD: 12/14/13 STATUS: COMP _ SOURCE: FOOT,LEFT SPDESC: ORDERED: Culture Stain QUERIES: Med[employer] Number [id number] Specimen Description WOUND DORSUM LEFT FOOT Procedure Result Verified Site Wound/Misc Gram Stain Final 12/14/13- 1601 ML 2+ Nucleated Cells 1+ Epithelial Cells 2+ Gram Positive Cocci Wound/Misc Culture Final 12/17/13- 0814 ML Organism 1 PSEUDOMONAS AERUGINOSA Quantity 1+ Organism 2 MEGHAN ALBICANS Quantity 2+ Organism 3 ENTEROCOCCUS SPECIES GP D Quantity 2+ 1. PSEUDOMONAS AERUGINOSA M.I.C. RX --------- ------ Ampicillin >=32 R Cefazolin >=64 R Cefepime 16 I Ceftriaxone >=64 R Ciprofloxacin >=4 R Gentamicin <=1 S Levofloxacin >=8 R Meropenem 1 S Nitrofurantoin >=512 R Tetracycline >=16 R Pipercillin/Tazobactam 16 S CONTINUED ON NEXT PAGE * ML=Testing performed at Main Lab DEPARTMENT OF PATHOLOGY, [address] [place] [address] Ean Jiménez M.D. Director [facility] # [id number] RUN DATE: 12/17/13 [facility] LAB LIVE PAGE 2 RUN TIME: [address] [place] [address] Specimen Inquiry Patient: EDGAR WELLS [id number] (Continued) Specimen: [id number] Collected: 12/14/13 Received: 12/14/13-1105 (Continued) Procedure Result Verified Site Wound/Misc Culture Final (continued) 12/17/13- 813 1. PSEUDOMONAS AERUGINOSA (continued) M.I.C. RX --------- ------ Trimethoprim/Sulfamethoxazole >=320 R Amoxicillin/Clavulanic Acid >=32 R 3. ENTEROCOCCUS SPECIES GP D M.I.C. RX --------- ------ Ampicillin <=2 S Penicillin 2 S Ciprofloxacin 1 S Erythromycin >=8 R Gentamicin High Level S Levofloxacin 1 S Linezolid 2 S Nitrofurantoin <=16 S * Quinupristin/Dalfopristin >=16 R * Streptomycin High Level S Tetracycline >=16 R Tigecycline <=0.12 S Vancomycin 1 S Imipenem-Deduced S * Ampicillin/Sulbactam-Deduced S * These antibiotics are not available in the [facility] Formulary Contact the Microbiology Department for any additional antibiotic reporting. Contact the Microbiology Department for any additional antibiotic reporting. END OF REPORT * ML=Testing performed at Main Lab DEPARTMENT OF PATHOLOGY, [address] [place] [address] Ean Jiménez M.D. Director [facility] # [id number] Procedures Date Code Description Status 02/03/2018 54353 Walking Cast Completed 01/13/2018 79524 Short Leg Cast Completed 01/02/2018 55331 Short Leg Cast Completed 12/26/2017 41960 Short Leg Cast Completed 12/18/2017 20488 Artrodesis Subtalar Completed 12/18/2017 32215 Artrodesis Subtalar Completed 12/18/2017 18103 Arthrodesis Ankle,open Completed 12/18/2017 72764 Arthrodesis Ankle,open Completed 12/18/2017 12561 Arthrodesis Ankle,open Completed 12/18/2017 61276 Bone Graft, Any Donor Area Major Or Large Completed 12/18/2017 36821 Bone Graft, Any Donor Area Major Or Large Completed 12/18/201702929 Bone Graft, Any Donor Area Major Or Large Completed 12/14/2017 93234 EKG, Interpretation Only Completed 12/13/2017 Apply Uniplane Completed 12/13/2017 Apply Uniplane Completed 12/13/2017 00910 FX Ankle Trimalleolar With Manipulation Completed 12/13/2017 29137 FX Ankle Trimalleolar With Manipulation Completed 06/23/2017 62986 ECHO Transthoracic, Real-Time 2D With Doppler And Color Completed Flow 06/23/2017 24569 ECHO Transthoracic, Real-Time 2D With Doppler And Color Completed Flow 05/30/2017 84665 Treadmill Interp/Report Only Completed 05/30/2017 74078 Stress Test Supervsn W/Out I/R Completed 11/06/2015 50057 Amputation Leg Through Tibia & Fibula Completed 11/06/2015 03108 Amputation Leg Through Tibia & Fibula Completed 10/31/2015 62025 EKG, Interpretation Only Completed 10/12/2015 01942 Hyperbaric Oxygen Therapy By Physician Completed 10/11/2015 15004 Hyperbaric Oxygen Therapy By Physician Completed 10/10/2015 71564 Hyperbaric Oxygen Therapy By Physician Completed 10/05/2015 95938 Hyperbaric Oxygen Therapy By Physician Completed 10/04/2015 33755 Hyperbaric Oxygen Therapy By Physician Completed 10/03/2015 58675 Hyperbaric Oxygen Therapy By Physician Completed 10/03/2015 97638 Debridement Skin,& sq Tissue Completed 10/02/2015 09072 Hyperbaric Oxygen Therapy By Physician Completed 09/28/2015 21463 Walking Cast Completed 09/21/2015 84998 Walking Cast Completed 09/05/2015 22916 Walking Cast Completed 08/25/2015 15041 Walking Cast Completed 08/15/2015 18396 Walking Cast Completed 08/15/2015 68427 Debridement Skin,& sq Tissue Completed 08/04/2015 52569 Walking Cast Completed 07/25/2015 68710 Walking Cast Completed 07/25/2015 56436 Debridement Skin,& sq Tissue Completed 06/21/2015 71945 Walking Cast Completed 06/13/2015 62056 Walking Cast Completed 06/07/2015 07031 Walking Cast Completed 05/30/2015 18449 Walking Cast Completed 05/30/2015 07366 Debridement Skin,& sq Tissue Completed 05/11/2015 43716 Walking Cast Completed 04/11/2015 05279 Walking Cast Completed 04/06/2015 70429 Walking Cast Completed 03/23/2015 46213 Walking Cast Completed 03/13/2015 83520 Amputation Foot Midtarsal Completed 03/13/2015 53795 Amputation Foot Midtarsal Completed 03/06/2015 58912 EKG, Interpretation Only Completed 01/18/2014 60675 Walking Cast Completed 01/07/2014 15402 Short Leg Cast Completed 12/31/2013 09586 Short Leg Cast Completed 12/24/2013 30572 Walking Cast Completed 12/20/2013 49180 Partial Excision Bone Tarsal/Metatarsal Completed 12/20/2013 66985 Partial Excision Bone Tarsal/Metatarsal Completed 12/20/2013 56095 Partial Excision Bone Talus/Calcaneus Completed 05/06/2006 89622 Treadmill Interp/Report Only Completed 05/06/2006 87136 Treadmill Interp/Report Only Completed 05/06/2006 33435 Stress Test Supervsn W/Out I/R Completed Encounters Type Date Location Provider Dx Diagnosis Office Visit 12/26/2017 [facility] Rosanne Leblanc, S82.187P Oth fracture of r 11:00a low leg, subs for clos fx w routn heal E11.40 Type 2 diabetes mellitus with diabetic neuropathy, 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 Giovanni S82.891A Oth fracture Assoc,pc ERWIN Gottlieb of right lower Hospitalists leg, init for clos fx I42.9 Cardiomyopathy, unspecified Z89.512 Acquired absence of left leg below knee E11.9 Type 2 diabetes mellitus without complications I10 Essential (primary) hypertension Office Visit 12/13/2017 8:59a [facility] Giovanni S82.871A Displaced pilon Assoc,pc ERWIN Gottlieb fracture of Hospitalists right tibia, init for clos fx Z89.512 Acquired absence of left leg below knee I42.9 Cardiomyopathy, unspecified E11.9 Type 2 diabetes mellitus without complications Office Visit 12/13/2017 9:32a Orthopedic Faraz Coreas S82.871A Displaced pilon Services Of MD Sean fracture of C.M.A. right tibia, init for clos fx E11.40 Type 2 diabetes mellitus with diabetic neuropathy, unsp Office Visit 12/12/2017 8:57a [facility] Shell David, S92.001A Unsp fracture of Assoc,pc N.P. right calcaneus, Hospitalists init for clos fx Z89.512 Acquired absence of left leg below knee E11.9 Type 2 diabetes mellitus without complications I10 Essential (primary) hypertension Office Visit 12/12/2017 9:31a Orthopedic Faraz Coreas S82.871A Displaced pilon Services Of MD Sean fracture of C.M.A. right tibia, init for clos fx E11.40 Type 2 diabetes mellitus with diabetic neuropathy, unsp Office Visit 10/21/2017 8:15a Orthopedic Rafy T87.44 Infection of Services Jairon Witt M.D. amputation C.M.A. stump, left lower extremity Office Visit 09/25/2017 1:40p [facility] Sulema Cano L97.821 Non- prs chr Scott Guerra M.D. ulcer oth prt l Diseases low leg limited to brkdwn skin E11.622 Type 2 diabetes mellitus with other skin ulcer T87.89 Other complications of amputation stump Office Visit 09/16/2017 8:00a Orthopedic Rafy L97.821 Non-prs chr Services Of Sidney Witt M.D. ulcer oth prt l low leg limited to brkdwn skin Office Visit 09/04/2017 3:00p [facility] Sulema Cano L97.821 Non- prs chr Infectious Rebeca Guerra ulcer oth prt Diseases l low leg limited to brkdwn skin E11.628 Type 2 diabetes mellitus with other skin complications E11.622 Type 2 diabetes mellitus with other skin ulcer Z89.512 Acquired absence of left leg below knee Office Visit 09/02/2017 9:00a [facility] T87.44 Infection of Services Of Rebeca Witt amputation stump, C.M.A. left lower extremity Office Visit 08/22/2017 1:00p [facility] Sulema Cano T87.44 Infection of Infectious Rebeca Guerra amputation stump, Diseases left lower extremity E11.628 Type 2 diabetes mellitus with other skin complications Z89.512 Acquired absence of left leg below knee L03.116 Cellulitis of left lower limb Office Visit 07/16/2017 9:10a [facility] Govind Cano E11.22 Type 2 diabetes Infectious Faby Guerra. mellitus w Diseases diabetic chronic kidney disease B95.61 Methicillin suscep staph infct causing dis classd elswhr T87.44 Infection of amputation stump, left lower extremity Z79.2 alf (current) use of antibiotics N18.9 Chronic kidney disease, unspecified Office Visit 06/24/2017 9:30a [facility] Govind Cano E11.22 Type 2 diabetes Infectious Faby Guerra. 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 skin complications T87.44 Infection of amputation stump, left lower extremity Office Visit 06/12/2017 10:30a Orthopedic Rafy B95.61 Methicillin Services Of Rebeca Witt suscep staph C.M.A. 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 Rashida Prince, R07.9 Chest pain, 10:00a mimi Chappell M.D. 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 Rashida Prince, R07.9 Chest pain, 9:58a Assmimi mcmillan M.D. 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 ankle and foot Office Visit 03/19/2016 Orthopedic Rafy Mills86.672 Other chronic 9:45a Services Of Rebeca Witt osteomyelitis, left C.M.A. ankle and foot Office Visit 11/07/2015 [facility] Govind Cano M86.672 Other chronic 10:15a For Infectious [place], osteomyelitis, left Diseases M.D. 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 Shell David, N17.9 Acute kidney Assoc,mimi N.P. 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 [place] Caridad Hernández M86.9 Osteomyelitis, 1:10p Assoc,mimi Bose, TYRESE unspecified Hospitalists N17.9 Acute kidney failure, unspecified E13.9 Other specified diabetes mellitus without complications Z89.512 Acquired absence of left leg below knee Office Visit 10/19/2015 [place]86.472 Chronic 10:45a Services Of Rebeca Witt osteomyelitis w C.M.A. draining sinus, left ankle and foot Office Visit 10/17/2015 [facility] Govind Mills86.472 Chronic 9:30a For Infectious [place], osteomyelitis w Diseases M.D. draining sinus, left ankle and foot M86.372 Chronic multifocal osteomyelitis, left ankle and foot Office Visit 10/12/2015 11:37a [facility] Rebeca Alvarenga osteomyelitis w draining sinus, left ankle and foot E11.621 Type 2 diabetes mellitus with foot ulcer Office Visit 09/28/2015 [facility] Rafy Gray Chronic 8:30a Services Of Rebeca Witt osteomyelitis w C.M.A. draining sinus, left ankle and foot E11.621 Type 2 diabetes mellitus with foot ulcer Office Visit 09/26/2015 10:06a Wound Care Lei [facility] Rebeca Alvarenga osteomyelitis w draining sinus, left ankle and foot E11.621 Type 2 diabetes mellitus with foot ulcer Office Visit 09/25/2015 [facility] Govind [id number] Chronic 1:20p For Infectious [place] M.D. osteomyelitis w Diseases draining sinus, left ankle and foot E11.621 Type 2 diabetes mellitus with foot ulcer N18.9 Chronic kidney disease, unspecified Office Visit 09/21/2015 [facility]opedic Rafy Gray Chronic 9:45a Services Of Rebeca Witt osteomyelitis w C.M.A. draining sinus, left ankle and foot Office Visit 09/05/2015 [facility]opedic Rafy Gray Chronic 2:50p Services Of Rebeca Witt osteomyelitis w C.M.A. draining sinus, left ankle and foot Office Visit 08/25/2015 [facility]opedic Rafy Gray Chronic 2:10p Services Of Rebeca Witt osteomyelitis w C.M.A. draining sinus, left ankle and foot Office Visit 08/25/2015 [facility] Govind Gray Chronic 9:50a For Infectious [place], osteomyelitis w Diseases M.D. 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 draining sinus, left ankle and foot Office Visit 07/25/2015 [facility] Rafy Mills86.472 Chronic 2:50p Services Of Rebeca Witt osteomyelitis w C.M.A. 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 draining sinus, left ankle and foot Office Visit 06/13/2015 [facility] Rafy Mills86.672 Other chronic 1:50p Services Of Rebeca Witt osteomyelitis, left C.M.A. ankle and foot Office Visit 05/10/2015 [facility] Govind Cano M86.672 Other chronic 3:00p For Infectious [place], osteomyelitis, left Diseases M.D. ankle and foot Office Visit 04/19/2015 [facility] Govind Cano M86.672 Other chronic 2:00p For Infectious [place], osteomyelitis, left Diseases M.D. ankle and foot Office Visit 03/29/2015 [facility] Govind Cano M86.672 Other chronic 2:20p For Infectious [place], osteomyelitis, left Diseases M.D. ankle and foot Office Visit 03/17/2015 [facility] Govind Cano M86.472 Chronic 12:53p For Infectious [place], osteomyelitis w Diseases M.D. draining sinus, left ankle and foot Z89.422 Acquired absence of other left toe(s) E11.9 Type 2 diabetes mellitus without complications N18.9 Chronic kidney disease, unspecified G62.9 Polyneuropathy, unspecified Office Visit 03/16/2015 [facility] Govind Cano M86.672 Other chronic 9:07a For Infectious [place], M.D. osteomyelitis, left Diseases ankle and foot Z89.422 Acquired absence of other left toe(s) E11.9 Type 2 diabetes mellitus without complications N18.9 Chronic kidney disease, unspecified Office Visit 03/15/2015 [facility] Govind Cano E11.69 Type 2 diabetes 9:04a For Infectious Nadja MMyrtleD. 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 [place] Robb Perez, E11.621 Type 2 Assoc,mimi Jose diabetes Hospitalists mellitus with foot ulcer E11.9 Type 2 diabetes mellitus without complications I10 Essential (primary) hypertension Office Visit 03/14/2015 10:10a [facility] [place] Silas E11.621 Type 2 Assoc,pc Ryan, N.PMyrtle diabetes Hospitalists mellitus with foot ulcer E11.9 Type 2 diabetes mellitus without complications I10 Essential (primary) hypertension Office Visit 03/09/2015 [facility] Rafy M86.672 Other chronic 3:10p Services Of Rebeca Witt osteomyelitis, left C.M.A. ankle and foot Office Visit 02/21/2015 [facility] Govind Cano M86.672 Other chronic 10:10a For Infectious [place], osteomyelitis, left Diseases M.D. ankle and foot N18.9 Chronic kidney disease, unspecified Office Visit 02/09/2015 [facility] Rafy M86.672 Other chronic 1:00p Services Of Rebeca Witt osteomyelitis, left C.M.A. ankle and foot Office Visit 02/02/2015 [facility] Govind Cano M86.672 Other chronic 4:00p For Infectious [place], osteomyelitis, left Diseases M.D. ankle and foot Office Visit 02/09/2014 [facility] Govind Cano 730.17 Osteomyelitis 1:20p For Infectious [place], Chronic Ankle & Foot Diseases M.D. Office Visit 01/12/2014 [facility] Govind Cano 730.17 Osteomyelitis 1:40p For Infectious [place], Chronic Ankle & Foot Diseases M.D. 250.00 Diabetes Mellitus W/O Compl Type II Or Unspec Controlled Office Visit 12/28/2013 [facility] Govind Cano 730.17 Osteomyelitis 10:30a For Scott Guerra M.D. Chronic Ankle & Diseases Foot 041.7 Pseudomonas 041.04 Streptococcus Group D Enterococcus Office Visit 12/14/2013 [facility] Govind Cano 730.00 Osteomyelitis Acute 8:50a For Infectious Rebeca Guerra Site Unspec Diseases 730.07 Osteomyelitis Acute Ankle & Foot Office Visit 11/25/2013 2:30p Orthopedic Services Rafy Witt 707.15 Ulcer Of Of [place] Jose Other Part Of Foot Office Visit 11/18/2013 12:02p W[facility] Center Lei Sawyer 707.15 Ulcer Of AT [facility] Rebeca Alvarenga Other Part Of Foot 250.60 Diabetes W/ Neurological Manifestations Type II Controlled Plan of Treatment Future Appointment(s):05/26/2018 8:00 am - Rafy Witt M.D. at [facility] [place]03/24/2018 - Rafy Witt M.D.S82.871D Displaced pilon fracture of right tibia, subsequent encounteNew Xrays:Ankle Right 3+VWS, Ordered : 03/24/18Follow up:2 months
--- OUTSIDE RECORDS SUMMARY | 2018-03-30 12:31 | XMS REPORT | Continuity of Care Document ---
:1935 External Reference #:[id number] Author Name Michael Smart Care Team Providers Name Role Phone Pooja Kinney MD Primary Care Physician Unavailable Payers Type Date Identification Numbers Payment Provider Subscriber Policy Number: [id number] [facility] Ins Ppo/Epo Edgar Wells PayID: [id number] [address] [place] [address] Effective: 2015 Policy Number: [facility] Today Edgar Wells [id number] Options Expires: 2016 PayID: [id number] [address] [address] Attn: [place] [address] Expires: 2015 Policy Number: [id number] [employer] Edgar Wells Group Number: [id number] [address] PayID: [id number] [place] [address] Expires: 2013 Policy Number: [id number] [employer] Edgar Wells Group Number: [id number] [address] PayID: [id number] [place] [address] Expires: 2008 Policy Number: [id number] [facility] Edgar Wells ([place]) Group Number: [id number] [address] PayID: [id number] [place] [address] Advance Directives Description No Information Available Problems [...] Unknown smoker years ago Smoking Status Reviewed: 03/03/18 Patient is a former 2 1/2 ppd - quit 25 smoker years ago Exercise Exercises regularly Type/Frequency Allergies, Adverse Reactions, Alerts Description No Known Drug Allergies Medications Medication Date Status Form Strength Qnty SIG Indications Ordering Provider Wheelchair 01/06 [place] [facility] 1unit 1 - 18" S82.891D s standard [...] s three times a D. - day [facility] [place], 10/20. Cephalexin 08/22 Hx Tablets 500mg 30tab 1 by mouth T87.44 s three times a D. - day [facility], 09/02. Linezolid 06/24 Hx Tablets 600mg 42tab one by mouth E11.22 s twice a day D. - [facility], 07/28.D Daptomycin 06/09 Hx Solution 500mg iv every Rec hours x 28 D. - days at [facility], 07/15 infusion . center Sulfamethoxazo 08/24 Hx Tablets 800-160mg 60tab 1 by mouth M86.472 Govind black/Trimethopri s twice daily D. m - [facility], 11/05. Metronidazole 07/05 Hx Tablets 500mg 60tab 1 tab by M86.472 s mouth every Eduar, - 12 hours M.D. 09/23 Bactrim DS 05/29 Hx Tablets 800-160mg 30tab 1 by mouth s twice a day Eduar, - M.D. 08/23 Flagyl 02/02 Hx Tablets 500mg 30tab 1 by mouth M86.672 Govind s two times a D. - day [facility], 03/22. Levofloxacin 02/02 Hx Tablets 500mg 30tab 1 by mouth M86.672 Govind s every day D. - [facility], 03/22.D. Meropenem 12/16 Hx Solution 1gm 1gm iv every Rec 12 hours for D. - 6 weeks [facility], 02/08 M.D Lisinopril Hx Tablets 5mg 1 [...] Mouth 2 Times 06/02 A Day ( [facility] [place] Linezolid Hx Tablets 600mg one by mouth Unknown /0000 twice a day - 06/23 Immunizations CPT Code Status Date Vaccine Lot # [id number] Given 11/28/2014 Influenza Virus Vaccine, Quadrivalent, Split, Preservative Free Vital Signs Date Vital Result Comment 03/03/2018 10:22am Height 72 inches 6'0" Heart [...] H/L Range Note CBC Auto Diff 07/01/2017 [facility] White Blood 6.7 10^3/uL N 3.5-10.[address] [place] [address] [phone] Red Blood Count 3.35 10^6/uL Low 4.0-5.4 [...] Cells % 0 Comp Metabolic Panel 07/01/2017 [facility] Sodium 135 mmol/L Low 139-[address] [place] [address] [phone] Potassium 4.5 mmol/L N 3.5-5.0 Chloride 106 [...] Egfr 51.5 >60 1 Laboratory test 07/01/2017 [facility] Creatine 67 U/L N 10- [address] Kinase(CK) [place] [address] [phone] C Reactive Protein 10.74 mg/L High < 5.00 2 CBC Auto Diff 06/24/2017 [facility] White Blood 4.6 10^3/uL N 3.5-10.[address] [place] [address] [phone] Red Blood Count 3.09 10^6/uL Low 4.0-5.4 [...] Cells % 0 Comp Metabolic Panel 06/24/2017 [facility] Sodium 138 mmol/L Low 139-[address] [place] [address] [phone] Potassium 4.7 mmol/L N 3.5-5.0 Chloride 109 [...] Egfr 57.0 >60 3 Laboratory test 06/24/2017 [facility] Creatine 80 U/L N 10- [address] Kinase([place]) [place] [address] [phone] C Reactive Protein 5.85 mg/L High < 5.00 4 CBC Auto Diff 06/17/2017 [facility] White Blood 6.3 10^3/uL N 3.5-10.[address] [place] [address] [phone] Red Blood Count 3.12 10^6/uL Low 4.0-5.4 [...] Cells % 0 Comp Metabolic Panel 06/17/2017 [facility] Sodium 139 mmol/L N 139-[address] [place] [address] [phone] Potassium 4.7 mmol/L N 3.5-5.0 Chloride 107 [...] Egfr 55.8 >60 5 Laboratory test 06/17/2017 [facility] Creatine 100 U/L N 10- [address] Kinase([place]) [place] [address] [phone] C Reactive Protein 3.64 mg/L N < 5.00 6 CBC Auto Diff 06/10/2017 [facility] White Blood 7.0 10^3/uL N 3.5-10.[address] [place] [address] [phone] Red Blood Count 3.24 10^6/uL Low 4.0-5.4 [...] Cells % 0 Comp Metabolic Panel 06/10/2017 [facility] Sodium 137 mmol/L Low 139-[address] [place] [address] [phone] Potassium 4.7 mmol/L N 3.5-5.0 Chloride 105 [...] Egfr 45.2 >60 7 Laboratory test 06/10/2017 [facility] Creatine 109 U/L N 10- [address] Kinase([place]) [place] [address] [phone] C Reactive Protein 10.29 mg/L High < 5.00 8 Laboratory test 06/08/2017 [facility] Blood Culture SEE RESULT [address] [place] [address] [phone] Laboratory test 06/06/2017 [facility] Blood Culture SEE RESULT [address] [place] [address] [phone] Laboratory test 06/06/2017 [facility] C Reactive 53.52 mg/L High < [address] Protein 5.00 [place] [address] [phone] Comp Metabolic 06/06/2017 [facility] Sodium 138 mmol/L Low 139 -[address] [place] [address] [phone] Potassium 4.8 mmol/L N 3.5-5.0 Chloride 104 [...] 44.1 >60 12 CBC Auto Diff 06/06/2017 [facility] White Blood 9.2 10^3/uL N 3.5-10.[address] [place] [address] [phone] Red Blood Count 3.53 10^6/uL Low 4.0-5.4 [...] Blood Cells % 0.1 Laboratory test 06/06/2017 [facility] Blood Culture SEE RESULT [address] [place] [address] [phone] CBC No Diff 10/31/2015 [facility] White Blood 8.8 10^3/uL N 3.5-[address] Count .8 [place] [address] [phone] Red Blood Count 3.16 10^6/uL Low 4.0-5.4 Hemoglobin 9.7 g/dL Low 14.0-18.0 Hematocrit 30 % Low 42-52 Mean Corpuscular Volume 94 fL N 80-94 Mean Corpuscular Hemoglobin 31 pg N 27-31 Mean Corpuscular HGB Conc 33 g/dL N 31-36 Red Cell Distribution Width 14 % N 10.5-15 Platelet Count 436 10^3/uL N 150-450 Mean Platelet Volume 6 um3 Low 7.4-10.4 Inr/Protime 10/31/2015 [facility] Inr 1.16 High 0.89-1.[address] [place], [place] [address] [phone] Laboratory test 10/31/2015 [facility] Partial 32.3 N 26.0- 36.3 [address] [place] [address] Time PTT [phone] Basic Metabolic 10/31/2015 [facility] Sodium 132 mmol/L Low 133-[address] [place] [address] [phone] Potassium 4.5 mmol/L N 3.5-5.0 Chloride 98 [...] N >60 16 Type & Screen 10/31/2015 [facility] Patient Blood Type A Negative N [address] [place] [address] [phone] Antibody Screen NEGATIVE N Wound 10/17/2015 [facility] Wound/Misc SEE RESULT 17 Culture/Sensi [address] [address] Stain [phone] Laboratory test 10/12/2015 [facility] Point of Care 143 mg/dL High 74- [address] Glucose 106 [place] [address] [phone] Laboratory test 10/12/2015 [facility] Point of Care 150 mg/dL High 74- [address] Glucose 106 [place] [address] [phone] Laboratory test 10/11/2015 [facility] Point of Care 150 mg/dL High 74- [address] Glucose 106 [place], [place] [address]84[address] [phone] Laboratory test 10/11/2015 [facility] Point of Care 140 mg/dL High 74- [address] Glucose 106 [place], [place] [address] [phone] Laboratory test 10/10/2015 [facility] Point of Care 120 mg/dL High 74- [address] Glucose 106 [place], [place] [address] [phone] Laboratory test 10/10/2015 [facility] Point of Care 149 mg/dL High 74- [address] Glucose 106 [place], [place] [phone] [phone] Laboratory test 10/09/2015 [facility] Point of Care 114 mg/dL High 74- [address] Glucose 106 [place] [address] [phone] Laboratory test 10/09/2015 [facility] Point of Care 142 mg/dL High 74- [address] Glucose 106 [place], [place] [address]328[address] [phone] Laboratory test 10/05/2015 [facility] Point of Care 118 mg/dL High 74- [address] Glucose 106 [place], [place] [address]37 [phone] Laboratory test 10/05/2015 [facility] Point of Care 205 mg/dL High 74- [address] Glucose 106 [place], [place] [address] [phone] Laboratory test 10/04/2015 [facility] Point of Care 121 mg/dL High 74- [address] Glucose 106 [place] [address] [phone] Laboratory test 10/04/2015 [facility] Point of Care 142 mg/dL High 74- [address] Glucose 106 [place] [address] [phone] Laboratory test 10/03/2015 [facility] Point of Care 130 mg/dL High 74- [address] Glucose 106 [place] [address] [phone] Laboratory test 10/03/2015 [facility] Point of Care 155 mg/dL High 74- [address] Glucose 106 [place], [place] [address]3 [phone] Wound 07/05/2015 [facility] Wound/Misc SEE RESULT 32, Culture/Sensi [address] Culture-Gram BELOW [address] [place] [address] Stain [phone] CBC Auto Diff 04/24/2015 [facility] White Blood 5.4 N 3.[address] Count 10^3/uL -10 [place] [address] .8 [phone] Red Blood Count 3.17 10^6/uL Low 4.0-5.4 [...] % 0.1 N Comp Metabolic Panel 04/24/2015 [facility] Sodium 138 mmol/L N 133-145 [address] [place] [address] [phone] Potassium 4.4 mmol/L N 3.5-5.0 Chloride 105 [...] 50.7 N >60 35 Laboratory test 04/24/2015 [facility] Vancomycin Trough 16.6 g /mL N 36 finding [address] [place] [address] [phone] C Reactive Protein 4.22 mg/L N < 5.00 37 CBC Auto Diff 04/18/2015 [facility] White Blood 5.1 10^3/uL N 3.5-10.[address] [place] [address] [phone] Red Blood Count 3.21 10^6/uL Low 4.0-5.4 [...] % 0 N Comp Metabolic Panel 04/18/2015 [facility] Sodium 139 mmol/L N 133-145 [address] [place] [address] [phone] Potassium 4.4 mmol/L N 3.5-5.0 Chloride 106 [...] 46.6 N >60 38 Laboratory test 04/18/2015 [facility] Vancomycin Trough 16.7 g /mL N finding [address] [place] [address] [phone] C Reactive Protein 7.10 mg/L High < 5.00 39 CBC Auto Diff 04/13/2015 [facility] White Blood 6.2 10^3/uL N 3.5-10.[address] [place] [address] [phone] Red Blood Count 3.22 10^6/uL Low 4.0-5.4 [...] % 0 N Comp Metabolic Panel 04/13/2015 [facility] Sodium 136 mmol/L N 133-[address] [place] [address] [phone] Potassium 4.7 mmol/L N 3.5-5.0 Chloride 105 [...] 51.2 N >60 40 Laboratory test 04/13/2015 [facility] Vancomycin Trough 14.7 g /mL N finding [address] [place] [address] [phone] C Reactive Protein 5.51 mg/L High < 5.00 41 CBC Auto Diff 04/03/2015 [facility] White Blood 6.5 10^3/uL N 3.5-10.[address] [place] [address] [phone] Red Blood Count 3.32 10^6/uL Low 4.0-5.4 [...] % 0 N Comp Metabolic Panel 04/03/2015 [facility] Sodium 137 mmol/L N 133-[address] [place] [address] [phone] Potassium 4.3 mmol/L N 3.5-5.0 Chloride 102 [...] 49.2 N >60 42 Laboratory test 04/03/2015 [facility] Vancomycin Trough 19.3 g /mL N [address] [place] [address] [phone] C Reactive Protein 3.88 mg/L N < 5.00 44 CBC Auto Diff 03/27/2015 [facility] White Blood 7.1 10^3/uL N 3.5-10.[address] [place] [address] [phone] Red Blood Count 3.07 10^6/uL Low 4.0-5.4 [...] % 0 N Comp Metabolic Panel 03/27/2015 [facility] Sodium 136 mmol/L N 133-[address] [place] [address] [phone] Potassium 4.7 mmol/L N 3.5-5.0 Chloride 103 [...] 48.5 N >60 46 Laboratory test 03/27/2015 [facility] Vancomycin Trough 19.3 g /mL N [address] [place] [address] [phone] C Reactive Protein 5.91 mg/L High < 5.00 48 CBC Auto Diff 03/21/2015 [facility] White Blood 6.8 10^3/uL N 3.5-10.[address] [place] [address] [phone] Red Blood Count 2.90 10^6/uL Low 4.0-5.4 [...] % 0 N Comp Metabolic Panel 03/21/2015 [facility] Sodium 140 mmol/L N 133-[address] [place] [address] [phone] Potassium 4.4 mmol/L N 3.5-5.0 Chloride 105 [...] 50.2 N >60 49 Laboratory test 03/21/2015 [facility] C Reactive 11.87 mg/L High < 5.00 [address] [place] [address] [phone] Vancomycin Trough 34.6 g/mL High CBC No Diff 03/06/2015 [facility] White Blood 9.2 10^3/uL N 3.5-10.[address] [place] [address] [phone] Red Blood Count 3.68 10^6/uL Low 4.0-5.4 Hemoglobin 12.0 g/dL Low 14.0-18.0 Hematocrit 36 % Low 42-52 Mean Corpuscular Volume 97 fL High 80-94 Mean Corpuscular Hemoglobin 32 pg High 27-31 Mean Corpuscular HGB Conc 34 g/dL N 31-36 Red Cell Distribution Width 13 % N 10.5-15 Platelet Count 347 10^3/uL N 150-450 Mean Platelet Volume 6 um3 Low 7.4-10.4 Inr/Protime 03/06/2015 [facility] Inr 1.20 High 0.89-1.[address] [place], [place] [address] [phone] Laboratory 03/06/2015 [facility] Urine Culture SEE [address] [place] [address] Sensitivities BELOW [phone] Laboratory 03/06/2015 [facility] Partial Thrombo 33.7 N 26.0- 36.3 [address] [place] [address] [phone] Basic 03/06/2015 [facility] Sodium 136 N 133-[address] mmol/[place] [address] [phone] Potassium 4.2 mmol/L N 3.5-5.0 Chloride 101 mmol/L N 101-111 Co2 Carbon Dioxide 27 mmol/L N 22-32 Anion Gap 8 mmol/L N 2-11 Glucose 151 mg/dL High 70-100 Blood Urea Nitrogen 24 mg/dL N 6-24 Creatinine 1.64 mg/dL High 0.67-1.17 BUN/Creatinine Ratio 14.6 N 8-20 Calcium 9.0 mg/dL N 8.6-10.3 Egfr Non- 40.9 N >60 Egfr 52.7 N >60 54 Urinalysis Profile 03/06/2015 [facility] Urine Color Yellow N [address] [place] [address] [phone] Urine Appearance Clear N Urine Specific [place] 1.020 N 1.010-1.030 Urine pH 5.0 N 5-9 Urine Urobilinogen Negative N Negative Urine Ketones Negative N Negative Urine Protein Negative N Negative Urine Leukocytes Trace Abnormal Negative Urine Blood Negative N Negative * * Abnormal Negative 55 Urine Nitrite Negative N Negative Urine Bilirubin Negative N Negative Urine Glucose Negative N Negative Urine White Blood Cell Trace(0-5/hpf) N Absent Urine Red Blood Cell Absent N Absent Urine Bacteria Absent N Absent Urine Squamous Epithelial Cell Present Abnormal Absent Laboratory test 02/21/2015 [facility] Wound SEE RESULT [address] Culture/[place] [address] [phone] Laboratory test 02/02/2015 [facility] Wound SEE RESULT [address] Culture/[place] [address] [phone] Comp Metabolic 01/31/2014 [facility] Sodium 137 mmol/L N 133- [address] [place] [address] [phone] Potassium 4.8 mmol/L N 3.5-5.0 Chloride 106 [...] 53.9 N >60 58 Laboratory test 01/31/2014 [facility] C Reactive 19.26 mg/L High < 5.00 [address] [place] [address] [phone] CBC Auto Diff 01/31/2014 [facility] White Blood 6.1 N 4.8- 10.[address] Count 10^3/[place] [address] [phone] Red Blood Count 3.39 10^6/uL Low 4.0-5.4 [...] Cells % 0.2 N Laboratory test 01/31/2014 [facility] Erythrocyte Sed 27 mm/Hr N 0-[address] [place] [address] [phone] CBC Auto Diff 01/24/2014 [facility] White Blood 4.6 Low 4.8- 10.[address] Count 10^3/[place] [address] [phone] Red Blood Count 3.17 10^6/uL Low 4.0-5.4 [...] Cells % 0 N Laboratory test 01/24/2014 [facility] Erythrocyte Sed 29 mm/Hr N 0-[address] [place] [address] [phone] Comp Metabolic 01/24/2014 [facility] Sodium 139 mmol/L N 133- [address] [place] [address] [phone] Potassium 5.0 mmol/L N 3.5-5.0 60 Chloride [...] 55.1 N >60 61 Laboratory test 01/24/2014 [facility] C Reactive 2.10 mg/L N < 5.[address] [place] [address] [phone] Comp Metabolic 01/17/2014 [facility] Sodium 138 mmol/L N 133- [address] [place] [address] [phone] Potassium 4.2 mmol/L N 3.5-5.0 63 Chloride [...] 51.7 N >60 64 Laboratory test 01/17/2014 [facility] C Reactive 2.80 mg/L N < 5.00 65 finding [address] [place] [address] [phone] CBC Auto Diff 01/17/2014 [facility] White Blood 4.6 Low 4.8- 10.[address] Count 10^3/[place] [address] [phone] Red Blood Count 3.22 10^6/uL Low 4.0-5.4 [...] Cells % 0 N Laboratory test 01/17/2014 [facility] Erythrocyte Sed 37 mm/Hr N 0-[address] [place] [address] [phone] Laboratory test 01/10/2014 [facility] C Reactive 2.56 mg/L N < 5.00 [address] [place] [address] [phone] Comp Metabolic 01/10/2014 [facility] Sodium 139 mmol/L N 133- [address] [place] [address] [phone] Potassium 4.5 mmol/L N 3.5-5.0 67 Chloride 109 mmol/L N 101-111 Co2 Carbon [...] 47.7 N >60 Egfr 61.3 N >60 68 Laboratory test 01/10/2014 [facility] Erythrocyte Sed 48 mm/Hr High 0-[address] [place] [address] [phone] CBC Auto Diff 01/10/2014 [facility] White Blood 5.2 N 4.8- 10.[address] Count 10^3/[place] [address] [phone] Red Blood Count 2.89 10^6/uL Low 4.0-5.4 [...] Cells % 0.1 N Comp Metabolic Panel 01/03/2014 [facility] Sodium 137 mmol/L N 133-[address] [place] [address] [phone] Potassium 4.8 mmol/L N 3.5-5.0 69 Chloride 105 mmol/L N 101-111 Co2 Carbon [...] 45.5 N >60 Egfr 58.5 N >60 70 Laboratory test 01/03/2014 [facility] C Reactive 4.51 mg/L N < 5.00 [address] [place] [address] [phone] CBC Auto Diff 01/03/2014 [facility] White Blood 7.3 N 4.8- 10.[address] Count 10^3/[place] [address] [phone] Red Blood Count 3.20 10^6/uL Low 4.0-5.4 [...] Cells % 0.4 N Laboratory test 01/03/2014 [facility] Erythrocyte Sed 48 mm/Hr High 0-[address] [place] [address] [phone] Laboratory test 12/27/2013 [facility] C Reactive 22.92 High < 5.00 [address] Protein mg/[place] [address] [phone] CBC Auto Diff 12/27/2013 [facility] White Blood 7.3 N 4.8- 10.[address] Count 10^3/[place] [address] [phone] Red Blood Count 2.91 10^6/uL Low 4.0-5.4 [...] Cells % 0 N Laboratory test 12/27/2013 [facility] Erythrocyte Sed 47 mm/Hr High 0-[address] [place] [address] [phone] Basic Metabolic 12/27/2013 [facility] Sodium 136 N 133-[address] mmol/[place] [address] [phone] Potassium 4.9 mmol/L N 3.5-5.0 73 Chloride 106 mmol/L N 101-111 Co2 Carbon Dioxide 26 mmol/L N 22-32 Anion Gap 4 mmol/L N 2-11 Glucose 125 mg/dL High 70-100 Blood Urea Nitrogen 26 mg/dL High 6-24 Creatinine 1.81 mg/dL High 0.67-1.17 BUN/Creatinine Ratio 14.4 N 8-20 Calcium 8.3 mg/dL Low 8.6-10.3 Egfr Non- 36.6 N >60 Egfr 47.1 N >60 74 Wound 12/24/2013 [facility] Wound/Misc (SEE NOTE) 75 Culture/Sensi [address] [place] [address] Stain [phone] Wound 12/20/2013 [facility] Wound/Misc (SEE NOTE) 76, 77 Culture/Sensi [address] [place] [address] Stain [phone] Wound 12/14/2013 [facility] Wound/Misc (SEE NOTE) 78 Culture/Sensi [address] [place] [address] Stain [phone] 1 Because ethnic data is not always [...] [address]: Govind Guerra MD Acct: [id number] Unit: [id number] AGE: 82 Location: INF Re06/08/17 SEX: M Status: REG REF SPEC: [id number] NELY: 06/08/17-[address] [facility] [address]: Govind Guerra MD REQ: [id number] RECD: 06/08/17-0 STATUS: YAIR VENTURA DR: Pooja Kinney MD _ SOURCE: BLOOD,VENO SPDESC: ORDERED: Blood Cult Procedure Result Reported Site Aerobic Culture Bottle Final 06/13/17- 1030 ML No Growth Day 5 Anaerobic Culture Bottle Final 06/13/17- 1030 ML No Growth Day 5 * ML - [facility] . END OF REPORT DEPARTMENT OF PATHOLOGY, [address] [place] [address] Ean Jiménez M.D. Director [facility] # [id number] 10 SEE RESULT BELOW Name: EDGAR WELLS : [address]: Govind Guerra MD Acct: [id number] Unit: [id number] AGE: 82 Location: [facility] Re06/06/17 SEX: M Status: REG REF SPEC: [id number] NELY: 06/06/[address] [facility] [address]: Govind Guerra MD REQ: [id number] RECD: 06/06/17 STATUS: COMP _ SOURCE: BLOOD,VENO SPDESC: ORDERED: Blood Cult COMMENTS: Verbal to by [id number] at 1503 on 06/07/17. Results read back accurately. Procedure Result Reported Site Aerobic Culture Bottle Final 06/08/17- 921 ML Aerobic Bottle Gram Stain Gram Positive Cocci resembling Staph Organism 1 STAPHYLOCOCCUS AUREUS Please refer to [id number] culture aerobic bottle for sensitivity testing. Anaerobic Culture Bottle Final 06/11/17- 809 ML No Growth Day 5 * ML - Main Lab . END OF REPORT DEPARTMENT OF PATHOLOGY, [address] [place] [address] Ean Jiménez M.D. Director [facility] # [id number] 11 Acute inflammation: >10.00 12 Because ethnic [...] (or dialysis) 13 SEE RESULT BELOW Name: GUALBERTOMICHELEEDGAR : [address]: Govind Guerra MD Acct: [id number] Unit: [id number] AGE: 82 Location: [facility] Re06/06/17 SEX: M Status: REG REF SPEC: [id number] NELY: 06/06/[address] [facility] [address]: Govind Guerra MD REQ: [id number] RECD: 06/06/17 STATUS: COMP NIYAH DR: Pooja Kinney MD _ SOURCE: BLOOD,VENO SPDESC: ORDERED: Blood Cult, MRSA/SA BC PCR COMMENTS: Verbal to DR. TAM by [id number] at 0901 on 06/07/17. Results read back [...] CONTINUED ON NEXT PAGE DEPARTMENT OF PATHOLOGY, [address] [place] [address] Ean Jiménez M.D. Director [facility] # [id number] Patient: EDGAR WELLS [id number] (Continued) Specimen: [id number] Collected: 06/06/17 Received: 06/06/17 (Continued) Procedure Result Reported Site Aerobic Culture Bottle Final (continued) * These antibiotics are not available in the [facility] Formulary Contact the Microbiology Department for any additional antibiotic reporting. Anaerobic Culture Bottle Final 06/11/17809 ML No Growth Day 5 MRSA/S. aureus Blood Cult PCR Final 06/07/17- 841 ML Organism 1 MRSA NEGATIVE Organism 2 S.AUREUS POSITIVE * - [facility] . END OF REPORT DEPARTMENT OF PATHOLOGY, [address] [place] [address] Ean Jiménez M.D. Director [facility] # [id number] 14 SURGERY DATE 11/06/15 [facility], INPATIENT 15 SURGERY DATE 11/06/15 [facility], INPATIENT 16 Because ethnic data [...] [address]: Govind Guerra MD Acct: [id number] Unit: [id number] AGE: 80 Location: [facility] Re10/17/15 SEX: M Status: REG REF SPEC: [id number] NELY: 10/17/15-[address] [facility] [address]: Govind Guerra MD REQ: [id number] RECD: 10/17/15 STATUS: COMP _ SOURCE: WOUND SPDESC: ORDERED: Culture Stain COMMENTS: [id number] Specimen Description plantar left foot wound Procedure [...] performed at Main Lab DEPARTMENT OF PATHOLOGY, [address] [place] [id number] Ean Jiménez M.D. Director [facility] # [id number] Patient: EDGAR WELLS [id number] (Continued) Specimen: [id number] Collected: 10/17/15-5 Received: 10/17/15-120 (Continued) Procedure Result Reported Site Wound/Misc Culture Final (continued) 10/20/15- 1011 1. ENTEROCOCCUS FAECALIS (continued) MMyrtleIMyrtleC. RX --------- ------ * Ampicillin/Sulbactam-Deduced S * These antibiotics are not available in the [facility] Formulary Contact the Microbiology Department for any additional antibiotic reporting. * ML - MAIN LAB ([facility]) . END OF REPORT * ML=Testing performed at Main Lab DEPARTMENT OF PATHOLOGY, [address] [place] [address] Ean Jiménez M.D. Director [facility] # [id number] Residential Insurance Inspector: [id number] MOLIVIATIS VERONICA 19 Residential Insurance Inspector: [id number] MOLIVIATIS VERONICA 20 Residential Insurance Inspector: [id number] MOLIVIATIS VERONICA 21 Residential Insurance Inspector: [id number] MOLIVIATIS VERONICA 22 Residential Insurance Inspector: [id number] MOLIVIATIS VERONICA 23 Residential Insurance Inspector: [id number] MOLIVIATIS VERONICA 24 Residential Insurance Inspector: [id number] MOLIVIATIS VERONICA 25 Residential Insurance Inspector: [id number] MOLIVIATIS VERONICA 26 Residential Insurance Inspector: [id number] MOLIVIATIS VERONICA 27 Residential Insurance Inspector: [id number] MOLIVIATIS VERONICA 28 Residential Insurance Inspector: [id number] MOLIVIATIS VERONICA 29 Residential Insurance Inspector: [id number] MOLIVIATIS VERONICA 30 Residential Insurance Inspector: [id number] MOLIVIATIS VERONICA 31 Residential Insurance Inspector: [id number] MOLIVIATIS VERONICA 32 [id number] SEE RESULT BELOW Name: EDGAR WELLS : [address]: Rafy Witt MD Acct: [id number] Unit: [id number] AGE: 80 Location: [facility] Re07/05/15 SEX: M Status: REG REF SPEC: [id number] NELY: 07/05/15-[address]: Rafy Witt MD REQ: [id number] RECD: 07/05/15 STATUS: COMP _ SOURCE: WOUND SPDESC: ORDERED: Culture Stain COMMENTS: [id number] Procedure Result Reported Site Wound/Misc Gram Stain Final 07/06/15- 1105 ML 2+ Nucleated Cells No Neutrophils Observed 2+ Gram Positive Cocci 1+ Gram Positive Bacilli Wound/Misc Culture Final 07/07/15- 1040 ML Organism 1 NORMAL BRONSON Quantity 1+ * ML - MAIN LAB ([facility]) . END OF REPORT * ML=Testing performed at Main Lab DEPARTMENT OF PATHOLOGY, [address] [place] [address] Ean Jiménez M.D. Director [facility] # [id number] 34 1ST DOSE 04/23/15 @ 1330 35 Because ethnic data is not always [...] 52 SEE RESULT BELOW Name: EDGAR WELLS Janet : [address]: Rafy Witt MD Acct: [id number] Unit: [id number] AGE: 79 Location: [facility] Re03/06/15 SEX: M Status: REG REF SPEC: [id number] NELY: 03/06/15-[address] [facility] [address]: Rafy Witt MD REQ: [id number] RECD: 03/06/15 STATUS: COMP AUDREY DR: Pooja Kinney MD _ SOURCE: URINE SPDESC: ORDERED: Urine Culture COMMENTS: HELENE 03/13 QUERIES: Urine Source: Clean Catch Procedure Result Reported Site Urine Culture Final 03/07/15- 1302 ML No Growth (<1,000 CFU/mL) * ML - MAIN LAB ([facility]) . END OF REPORT * ML=Testing performed at Main Lab DEPARTMENT OF PATHOLOGY, [address] [place] [address] Ean Jiménez M.D. Director [facility] # [id number] 53 03/13 54 Because ethnic data is not always readily [...] 15-29 5 Kidney failure <15 (or dialysis) 55 *Ascorbic acid is present which may interfere with detection of blood. 56 SEE RESULT BELOW Name: EDGAR WELLS : [address]: Govind Guerra MD Acct: [id number] Unit: [id number] AGE: 79 Location: [facility] Re02/21/15 SEX: M Status: REG REF SPEC: [id number] NELY: 02/21/15-[address] [facility] [address]: Govind Guerra MD REQ: [id number] RECD: 02/21/15 STATUS: COMP _ SOURCE: WOUND SPDESC: ORDERED: Culture Stain Specimen Description left foot Procedure Result Reported Site Wound/Misc Gram Stain Final 02/21/15- 1511 ML 2+ Neutrophils 3+ Gram Positive Cocci 2+ Gram Positive Bacilli 2+ Gram Negative Coccobacilli Intracellular Wound/Misc Culture Final 02/23/15- 1126 ML Organism 1 NORMAL BRONSON Quantity 3+ * ML - MAIN LAB ([facility]) . END OF REPORT * ML=Testing performed at Main Lab DEPARTMENT OF PATHOLOGY, [address] [place] [address] Ean Jiménez M.D. Director [facility] # [id number] 57 SEE RESULT BELOW Name: EDGAR WELLS : [address]: Govind Guerra MD Acct: [id number] Unit: [id number] AGE: 79 Location: [facility] Re02/02/15 SEX: M Status: REG REF SPEC: [id number] NELY: 02/02/[address] [facility] [address]: Govind Guerra MD REQ: [id number] RECD: 02/02/15 STATUS: COMP _ SOURCE: WOUND SPDESC: ORDERED: Culture Stain Specimen Description left foot ulcer Procedure Result Reported Site Wound/Misc Gram Stain Final 12/11/15- 0859 ML 1+ Neutrophils 2+ Epithelial Cells 4+ Gram Positive Cocci 2+ Gram Negative Bacilli Wound/Misc Culture Final 02/04/15- 1058 ML Organism 1 NORMAL BRONSON Quantity 2+ * ML - MAIN LAB ([facility]) . END OF REPORT * ML=Testing performed at Main Lab DEPARTMENT OF PATHOLOGY, [address] [place] [address] Ean Jiménez M.D. Director [facility] # [id number] 58 Because ethnic data is not always [...] (or dialysis) 65 Acute inflammation: >10.00 66 Acute inflammation: >10.00 67 Potassium reference range changed effective 12/26/13 68 Because ethnic data is not always readily [...] 15-29 5 Kidney failure <15 (or dialysis) 69 Potassium reference range changed effective 12/26/13 70 Because ethnic data is not always readily [...] 15-29 5 Kidney failure <15 (or dialysis) 71 Acute inflammation: >10.00 72 Acute inflammation: >10.00 73 Potassium reference [...] <15 (or dialysis) 75 RUN DATE: 12/27/13 [facility] LAB LIVE PAGE 1 RUN TIME: [address] [place] [address] Specimen Inquiry Name: EDGAR WELLS : [address]: Shandra HOOD Acct: [id number] Unit: [id number] AGE: 78 Location: [facility] Re12/24/13 SEX: M Status: REG REF SPEC: [id number] NELY: 12/24/[address]: Shandra HOOD REQ: [id number] RECD: 12/24/13 STATUS: COMP _ SOURCE: FOOT,LEFT [...] performed at Main Lab DEPARTMENT OF PATHOLOGY, [facility] [employer] [place] [address] Ean Jiménez M.D. Director [facility] # [id number] RUN DATE: 12/27/13 [facility] LAB LIVE PAGE 2 RUN TIME: [address] [place] [address] Specimen Inquiry Patient: EDGAR WELLS [id number] (Continued) Specimen: [id number] Collected: 12/24/13 Received: 12/24/13 (Continued) Procedure Result [...] These antibiotics are not available in the [facility] Formulary Contact the Microbiology Department for any additional antibiotic reporting. Contact the Microbiology Department for any additional antibiotic reporting. END OF REPORT * ML=Testing performed at Main Lab DEPARTMENT OF PATHOLOGY, [address] [place] [address] Ean Jiménez M.D. Director [facility] # [id number] 78 LEFT DEEP FOOT 77 RUN DATE: 12/20/13 [facility] LAB LIVE PAGE 1 RUN TIME: [address] [place] [address] Specimen Inquiry Name: SHAMEKAEDGAR : [address]: Rafy Witt MD Acct: [id number] Unit: [id number] AGE: 78 Location: [place] Re12/20/13 SEX: M Status: REG SDC SPEC: [id number] NELY: 12/20/[address] [facility] [address]: Rafy Witt MD REQ: [id number] RECD: 12/20/13 STATUS: RES OTHR DR: Pooja Kinney MD _ SOURCE: WOUND SPDESC:OTHER ORDERED: Anaerobic Cult, Culture Stain COMMENTS: LEFT DEEP FOOT Procedure Result Verified Site Anaerobic Culture PENDING Wound/Misc Gram Stain Final 12/20/13- 1425 ML 1+ Neutrophils No Organisms Seen Wound/Misc Culture PENDING END OF REPORT * ML=Testing performed at Main Lab DEPARTMENT OF PATHOLOGY, [facility] [employer] [place] [address] Ean Jiménez M.D. Director [facility] # [id number] 80 RUN DATE: 12/17/13 [facility] LAB LIVE PAGE 1 RUN TIME: 814 [facility] [employer] [place], [place] [address] Specimen Inquiry Name: EDGAR WELLS : [address]: Govind Guerra MD Acct: [id number] Unit: [id number] AGE: 78 Location: [facility] Re12/14/13 SEX: M Status: REG REF SPEC: [id number] NELY: 12/14/[address] [facility] [address]: Govind Guerra MD REQ: [id number] RECD: 12/14/13 STATUS: COMP _ SOURCE: FOOT,LEFT SPDESC: ORDERED: Culture Stain QUERIES: Med[employer] Number [id number] Specimen Description WOUND DORSUM LEFT FOOT Procedure [...] performed at Main Lab DEPARTMENT OF PATHOLOGY, [address] [place] [address] Ean Jiménez M.D. Director [facility] # [id number] RUN DATE: 12/17/13 [facility] LAB LIVE PAGE 2 RUN TIME: [address] [place] [address] Specimen Inquiry Patient: EDGAR WELLS [id number] (Continued) Specimen: [id number] Collected: 12/14/13 Received: 12/14/13 (Continued) Procedure Result Verified Site Wound/Misc Culture [...] These antibiotics are not available in the [facility] Formulary Contact the Microbiology Department for any additional antibiotic reporting. Contact the Microbiology Department for any additional antibiotic reporting. END OF REPORT * ML=Testing performed at Main Lab DEPARTMENT OF PATHOLOGY, [address] [place] [address] Ean Jiménez M.D. Director [facility] # [id number] Procedures Date Code Description Status 02/03/2018 02734 Walking Cast Completed 01/13/2018 33273 Short Leg Cast Completed 01/02/2018 83721 Short Leg Cast Completed 12/26/2017 73601 Short Leg Cast Completed 12/18/2017 67971 Artrodesis Subtalar Completed 12/18/2017 00148 Artrodesis Subtalar Completed 12/18/2017 71210 Arthrodesis Ankle,open Completed 12/18/2017 48765 Arthrodesis Ankle,open Completed 12/18/2017 97118 Arthrodesis Ankle,open Completed 12/18/201713079 Bone Graft, Any Donor Area Major Or Large Completed 12/18/201787700 Bone Graft, Any Donor Area Major Or Large Completed 12/18/201737131 Bone Graft, Any Donor Area Major Or Large Completed 12/14/2017 64813 EKG, Interpretation Only Completed 12/13/2017 Apply Uniplane Completed 12/13/2017 Apply Uniplane Completed 12/13/2017 47790 FX Ankle Trimalleolar With Manipulation Completed 12/13/2017 45450 FX Ankle Trimalleolar With Manipulation Completed 06/23/2017 45162 ECHO Transthoracic, Real-Time 2D With Doppler And Color Completed Flow 06/23/2017 73295 ECHO Transthoracic, Real-Time 2D With Doppler And Color Completed Flow 05/30/2017 78775 Treadmill Interp/Report Only Completed 05/30/2017 10696 Stress Test Supervsn W/Out I/R Completed 11/06/2015 97701 Amputation Leg Through Tibia & Fibula Completed 11/06/2015 85187 Amputation Leg Through Tibia & Fibula Completed 10/31/2015 00461 EKG, Interpretation Only Completed 10/12/2015 39498 Hyperbaric Oxygen Therapy By Physician Completed 10/11/2015 23636 Hyperbaric Oxygen Therapy By Physician Completed 10/10/2015 90458 Hyperbaric Oxygen Therapy By Physician Completed 10/05/2015 44863 Hyperbaric Oxygen Therapy By Physician Completed 10/04/2015 91500 Hyperbaric Oxygen Therapy By Physician Completed 10/03/2015 27050 Hyperbaric Oxygen Therapy By Physician Completed 10/03/2015 00842 Debridement Skin,& sq Tissue Completed 10/02/2015 92476 Hyperbaric Oxygen Therapy By Physician Completed 09/28/2015 46626 Walking Cast Completed 09/21/2015 12003 Walking Cast Completed 09/05/2015 92521 Walking Cast Completed 08/25/2015 47190 Walking Cast Completed 08/15/2015 38299 Walking Cast Completed 08/15/2015 39936 Debridement Skin,& sq Tissue Completed 08/04/2015 26010 Walking Cast Completed 07/25/2015 62653 Walking Cast Completed 07/25/2015 45316 Debridement Skin,& sq Tissue Completed 06/21/2015 20550 Walking Cast Completed 06/13/2015 15556 Walking Cast Completed 06/07/2015 76545 Walking Cast Completed 05/30/2015 11795 Walking Cast Completed 05/30/2015 16384 Debridement Skin,& sq Tissue Completed 05/11/2015 55079 Walking Cast Completed 04/11/2015 43548 Walking Cast Completed 04/06/2015 85361 Walking Cast Completed 03/23/2015 98502 Walking Cast Completed 03/13/2015 01504 Amputation Foot Midtarsal Completed 03/13/2015 35199 Amputation Foot Midtarsal Completed 03/06/2015 08146 EKG, Interpretation Only Completed 01/18/2014 36558 Walking Cast Completed 01/07/2014 39397 Short Leg Cast Completed 12/31/2013 83499 Short Leg Cast Completed 12/24/2013 95830 Walking Cast Completed 12/20/2013 92457 Partial Excision Bone Tarsal/Metatarsal Completed 12/20/2013 08484 Partial Excision Bone Tarsal/Metatarsal Completed 12/20/2013 82286 Partial Excision Bone Talus/Calcaneus Completed 05/06/2006 32865 Treadmill Interp/Report Only Completed 05/06/2006 03703 Treadmill Interp/Report Only Completed 05/06/2006 03674 Stress Test Supervsn W/Out I/R Completed Encounters Type Date Location Provider Dx Diagnosis Office Visit 12/26/2017 [facility] Rosanne Leblanc, S82.891D Oth fracture of r 11:00a MD frankie stewart, subs for clos fx w routn heal E11.40 Type 2 diabetes mellitus with diabetic neuropathy, 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 N18.3 Chronic kidney disease, stage 3 (moderate) I12.9 Hypertensive chronic kidney disease w stg 1-4/unsp chr kdny Office Visit 12/19/2017 9:04a [facility] Anika Theresa, S82.891A Oth fracture Assoc,pc JANITORIAL TECH of right lower Hospitalists leg, init for clos fx I42.9 Cardiomyopathy, unspecified I10 Essential (primary) hypertension E11.9 Type 2 diabetes mellitus without complications Z89.512 Acquired absence of left leg below knee Office Visit 12/18/2017 9:01a [facility] Anika Theresa, S82.891A Oth fracture Assoc,pc JANITORIAL TECH of right lower Hospitalists leg, init for clos fx I42.9 Cardiomyopathy, unspecified I10 Essential (primary) hypertension E11.9 Type 2 diabetes mellitus without complications Z89.512 Acquired absence of left leg below knee Office Visit 12/17/2017 9:00a [facility] Anika Theresa, S82.891A Oth fracture Assoc,pc JANITORIAL TECH of right lower Hospitalists leg, init for clos fx I42.9 Cardiomyopathy, unspecified I10 Essential (primary) hypertension E11.9 Type 2 diabetes mellitus without complications Office Visit 12/16/2017 9:00a [facility] Anika Theresa, S82.891A Oth fracture Assoc,pc JANITORIAL TECH of right lower Hospitalists leg, init for clos fx E11.9 Type 2 diabetes mellitus without complications I10 Essential (primary) hypertension I42.9 Cardiomyopathy, unspecified Z89.512 Acquired absence of left leg below knee Office Visit 12/15/2017 8:59a [facility] Anika Theresa, S82.891A Oth fracture Assoc,pc JANITORIAL TECH of right lower Hospitalists leg, init for clos fx E11.9 Type 2 diabetes mellitus without complications I42.9 Cardiomyopathy, unspecified I10 Essential (primary) hypertension Z89.512 Acquired absence of left leg below knee Office Visit 12/14/2017 8:59a [facility] Giovanni S82.891A Oth fracture Assoc,pc ERWIN Gottlieb of right lower Hospitalists leg, init for clos fx I42.9 Cardiomyopathy, unspecified Z89.512 Acquired absence of left leg below knee E11.9 Type 2 diabetes mellitus without complications I10 Essential (primary) hypertension Office Visit 12/13/2017 8:59a [facility] Giovanni S82.871A Displaced pilon Assoc,pc ERWIN Gottlieb [...] diabetic neuropathy, unsp Office Visit 12/12/2017 8:57a [facility] Shell David, S92.001A Unsp fracture of Assoc,pc [...] 8:15a [facility] Rafy 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 ulcer oth prt l Diseases low leg limited to brkdwn skin E11.622 Type 2 diabetes mellitus with other skin ulcer T87.89 Other complications of amputation stump Office Visit 09/16/2017 8:00a [facility] Rafy L97.821 Non-prs chr Services Of Sidney Witt M.D. ulcer oth prt l low leg limited to brkdwn skin Office Visit 09/04/2017 3:00p [facility] Cano L97.821 Non- prs chr Infectious Rebeca Guerra ulcer oth prt Diseases l low leg limited to brkdwn skin E11.628 Type 2 diabetes mellitus with other skin complications E11.622 Type 2 diabetes mellitus with other skin ulcer Z89.512 Acquired absence of left leg below knee Office Visit 09/02/2017 9:00a [facility] Rafy T87.44 Infection of Services Of Rebeca Witt amputation stump, C.M.A. 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 N18.9 Chronic kidney disease, unspecified Office Visit 06/24/2017 9:30a [facility] Govind Cano E11.22 Type 2 diabetes Infectious Rebeca Guerra mellitus w Diseases diabetic chronic kidney disease B95.61 Methicillin suscep staph infct causing dis classd elswhr T87.44 Infection of amputation stump, left lower extremity 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 N18.9 Chronic kidney [...] other skin complications Office Visit 06/09/2017 1:20p [facility] Govind Cano B95.61 Methicillin For Infectious Rebeca [...] leg below knee Office Visit 06/03/2017 9:10a [facility] Govind Cano B95.61 Methicillin For Infectious Rebeca Guerra suscep staph Diseases infct causing dis classd elswhr R78.81 Bacteremia L03.116 Cellulitis of left lower limb E11.628 Type 2 diabetes mellitus with other skin complications T87.44 Infection of amputation stump, left lower extremity [facility] Chest pain, 10:00a Assoc,mimi Jose unspecified Hospitalists R11.0 Nausea 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 ankle and foot Office Visit 03/19/2016 [facility] Rafy Mills86.672 Other chronic 9:45a Services Of Rebeca Witt osteomyelitis, left C.M.A. ankle and foot Office Visit 11/07/2015 [facility] Govind Cano M86.672 Other chronic 10:15a For Infectious [place], osteomyelitis, left Diseases M.D. ankle and foot E11.69 Type 2 diabetes mellitus with other specified complication N18.9 Chronic kidney disease, unspecified Z89.512 Acquired absence of left leg below knee Office Visit 11/07/2015 1:12p [facility] Shellashish David, N17.9 Acute kidney Assoc,mimi N.P. failure, Hospitalists unspecified E13.9 Other specified diabetes mellitus without complications M86.9 Osteomyelitis, unspecified Z89.512 Acquired absence of left leg below knee Office Visit 11/06/2015 [facility] Caridad Hernández M86.9 Osteomyelitis, 1:10p Assoc,pc Lidya, JANITORIAL TECH unspecified Hospitalists N17.9 Acute kidney failure, unspecified E13.9 Other specified diabetes mellitus without complications Z89.512 Acquired absence of left leg below knee Office Visit 10/19/2015 [facility] Rafy M86.472 Chronic 10:45a Services Of Rebeca Witt osteomyelitis w C.M.A. draining sinus, left ankle and foot Office Visit 10/17/2015 [facility] Govind Cano M86.472 Chronic 9:30a For Infectious [place], osteomyelitis w Diseases Faby. 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 draining sinus, left ankle and foot E11.621 Type 2 diabetes mellitus with foot ulcer Office Visit 09/26/2015 10:06a [facility] Rebeca Alvarenga osteomyelitis w draining sinus, left ankle and foot E11.621 Type 2 diabetes mellitus with foot ulcer Office Visit 09/25/2015 [facility] Govind Gray Chronic 1:20p For Infectious Faby Guerra. osteomyelitis w Diseases draining sinus, left ankle [...] left ankle and foot Office Visit 08/25/2015 [facility] Govind Gray Chronic 9:50a For Infectious [place], osteomyelitis w Diseases M.D. 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 draining sinus, left ankle and foot Office Visit 07/25/2015 [facility] Rafy Gray Chronic 2:50p Services Of Rebeca Witt osteomyelitis w C.M.A. 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 ankle and foot Office Visit 05/10/2015 [facility] Govind Cano M86.672 Other chronic 3:00p For Infectious [place], osteomyelitis, left Diseases M.D. ankle and foot Office Visit 04/19/2015 [facility] Govind Cano M86.672 Other chronic 2:00p For Infectious [place], osteomyelitis, left Diseases M.D. ankle and foot Office Visit 03/29/2015 [facility] Govind Cano M86.672 Other chronic 2:20p For Infectious [place], osteomyelitis, left Diseases M.D. ankle and foot Office Visit 03/17/2015 [facility] Govind Cano M86.472 Chronic 12:53p For Infectious [place], osteomyelitis w Diseases M.D. draining sinus, left ankle and foot Z89.422 Acquired absence of other left toe(s) E11.9 Type 2 diabetes mellitus without complications N18.9 Chronic kidney disease, unspecified G62.9 Polyneuropathy, unspecified Office Visit 03/16/2015 [facility] Govind Cano M86.672 Other chronic 9:07a For Infectious [place], M.D. osteomyelitis, left Diseases ankle and foot Z89.422 Acquired absence of other left toe(s) E11.9 Type 2 diabetes mellitus without complications N18.9 Chronic kidney disease, unspecified Office Visit 03/15/2015 [facility] Govind Cano E11.69 Type 2 diabetes 9:04a For Infectious [place], M.D. 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 diabetes Hospitalists mellitus with foot ulcer E11.9 Type 2 diabetes mellitus without complications I10 Essential (primary) hypertension Office Visit 03/14/2015 10:10a [facility] Silas E11.621 Type 2 Assocmimi NPriscilla diabetes Hospitalists mellitus with foot ulcer E11.9 Type 2 diabetes mellitus without complications I10 Essential (primary) hypertension Office Visit 03/09/2015 [facility] M86.672 Other chronic 3:10p Services Of Rebeca Witt osteomyelitis, left C.M.A. ankle and foot Office Visit 02/21/2015 [facility] Govind Cano M86.672 Other chronic 10:10a For Infectious [place], osteomyelitis, left Diseases M.D. ankle and foot N18.9 Chronic kidney disease, unspecified Office Visit 02/09/2015 [facility] Rafy M86.672 Other chronic 1:00p Services Of Rebeca Witt osteomyelitis, left C.M.A. ankle and foot Office Visit 02/02/2015 [facility] Govind Cano M86.672 Other chronic 4:00p For Infectious [place], osteomyelitis, left Diseases M.D. ankle and foot Office Visit 02/09/2014 [facility] Govind Cano 730.17 Osteomyelitis 1:20p For Infectious [place], Chronic Ankle & Foot Diseases M.D. Office Visit 01/12/2014 [facility] Govind Cano 730.17 Osteomyelitis 1:40p For Infectious [place], Chronic Ankle & Foot Diseases M.D. 250.00 Diabetes Mellitus W/O Compl Type II Or Unspec Controlled Office Visit 12/28/2013 [facility] Govind Cano 730.17 Osteomyelitis 10:30a For Infectious Taya GuerraD. Chronic Ankle & Diseases Foot 041.7 Pseudomonas 041.04 Streptococcus Group D Enterococcus Office Visit 12/14/2013 [facility] Govind Cano 730.00 Osteomyelitis Acute 8:50a For Infectious Rebeca Guerra Site Unspec Diseases 730.07 Osteomyelitis Acute Ankle & Foot Office Visit 11/25/2013 2:30p [facility] Rafy Witt 707.15 Ulcer Of Of [place] Other Part Of Foot Office Visit 11/18/2013 12:02p [facility] Lei Sawyer 707.15 Ulcer Of [place] [facility] [place] Rebeca Alvarenga Other Part Of Foot 250.60 Diabetes W/ Neurological Manifestations Type II Controlled Plan of Treatment Future Appointment(s):03/24/2018 10:00 am - Rafy Witt M.D. at [facility]03/03/2018 - Rafy Witt M.D.S82.871D Displaced pilon fracture of right tibia, subsequent encounteNew Xrays:Ankle Right 3+VWS, Ordered : 03/03/18Follow up:3-4 weeks
--- NOTE | 2018-03-30 12:53 | ED ---
Lower Extremity - HPI Summary HPI Summary: A 82 y/o male accompanied by family presents to the ED c/o right ankle pain. According to the patient, in early november he fell and didn't know at the time that he broke his ankle. He ended up walking around for 2.5 weeks with the broken ankle and when one time when he was getting out of the shower, his right ankle hurt "like hell". He stated that Dr. Madison "tied everything together" and in the same week he saw Dr. Witt and Dr. Ann who operated on him. He stated that he saw Dr. Witt last week who stated that the XR looked fine and his injury healed up. He stated that recently has been walking and it was fine, however, on he was taking his to her appointment when he noticed a bit of pain, but not much. He stated that last night as he was getting into bed, he put some weight on it and heard something pop in his leg. He assumed he busted something in his leg. He stated that he is not in any pain, however, if he moves or puts weight on it, it is painful to the point where he screams. 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 - History of Current Complaint Chief Complaint: EDExtremityLower Stated Complaint: RIGHT ANKLE INJURY Time Seen by Provider: 03/30/18 12:17 Hx Obtained From: Patient Mechanism Of Injury: Unknown Onset of Pain: Days Onset/Duration: Days Severity Currently: None Pain Intensity: 0 Pain Scale Used: 0-10 Numeric Timing: Constant - WITH WEIGHT AND MOVEMENT Location: Is Discrete @ - RIGHT ANKLE Character Of Pain: Unable To Describe Associated Signs And Symptoms: Positive: Negative Aggravating Factor(s): Standing, Ambulation, Movement Alleviating Factor(s): Rest Able to Bear Weight: No - PER PATIENT DUE TO PAIN - Allergies/Home Medications Allergies/Adverse Reactions: Allergies Allergy/AdvReac Type Severity Reaction Status Date / Time No Known Allergies Allergy Verified 07/02/17 08:02 PMH/Surg Hx/FS Hx/Imm Hx Endocrine/Hematology History: Reports: Hx Diabetes - NIDDM, Hx Anemia - SLIGHT STABLE ANEMIA Cardiovascular History: Reports: Hx Hypertension, Other Cardiovascular Problems/ Disorders - SPORT INTERNSHIP DR. VALENCIA DRISCOLL Denies: Hx Pacemaker/ICD GI History: Reports: Other GI Disorders - OCCASIONAL INDIGESTION History: Reports: Hx Kidney Stones - HX OF , Hx Renal Disease - ELAVATED CREATNINE AND BUN, Other Problems/Disorders - STATED SLIGHTLY ELEVATED BUT STABLE BUN AND CREATININE Musculoskeletal History: Reports: Other Musculoskeletal History - LEFT FOOT OSTEOMEYLITIS Sensory History: Reports: Hx Cataracts - HX OF, Hx Contacts or Glasses - Reading glasses. Denies: Hx Hearing Aid Opthamlomology History: Reports: Hx Cataracts - HX OF, Hx Contacts or Glasses - Reading glasses. Psychiatric History: Denies: Hx Panic Disorder - Cancer History Cancer Type, Location and Year: PROSTATE 2006 Hx Chemotherapy: - RADITION 35 [place] Hx Radiation Therapy: Yes - DONE - Surgical History Surgery Procedure, Year, and Place: YOUNG CHILD BOTH EYES. 2006 RT & LEFT FOOT BONE CHIPS, ABDIAZIZ. 2007 & 2011 CATARACT EXTRACTION BOTH EYES. 02/2012 LEFT FOOT OSTECTOMY Hx Anesthesia Reactions: No Infectious Disease History: No Infectious Disease History: Denies: Hx Clostridium Difficile, Hx Hepatitis, Hx Human Immunodeficiency Virus (HIV), Hx of Known/Suspected MRSA, Hx Shingles, Hx Tuberculosis, Hx Known/ Suspected VRE, Hx Known/Suspected VRSA, History Other Infectious Disease, Traveled Outside the [place] in Last 30 Days - Family History Known Family History: Positive: Other - FMHx of malignant neoplasm of trachea, bronc and lung - Social History Alcohol Use: None Alcohol Amount: 2 BEER/1 WINE DAILY Substance Use Type: Reports: None Smoking Status (MU): Former Smoker Type: Cigarettes Amount Used/How Often: 2 1/2 ppd Have You Smoked in the Last Year: No Review of Systems Negative: Fever Positive: Other - POSITIVE: RIGHT ANKLE PAIN All Other Systems Reviewed And Are Negative: Yes Physical Exam - Summary Physical Exam Summary: VITAL SIGNS: Reviewed. GENERAL: Patient is an elderly male who is lying comfortable in the stretcher. Patient is not in any acute respiratory distress. No acute distress. Patient has a left below the knee amputation. HEAD AND FACE: No signs of trauma. No ecchymosis, hematomas or skull depressions. No sinus tenderness. EYES: PERRLA, EOMI x 2, No injected conjunctiva, no nystagmus. EARS: Hearing grossly intact. Ear canals and tympanic membranes are within normal limits. MOUTH: Oropharynx within normal limits. NECK: Supple, trachea is midline, no adenopathy, no JVD, no carotid bruit, no c- spine tenderness, neck with full ROM. CHEST: Symmetric, no tenderness at palpation LUNGS: Clear to auscultation bilaterally. No wheezing or crackles. CVS: Regular rate and rhythm, S1 and S2 present, no murmurs or gallops appreciated. ABDOMEN: Soft, non-tender. No signs of distention. No rebound no guarding, and no masses palpated. Bowel sounds are normal. EXTREMITIES: FROM in all major joints, no edema, no cyanosis or clubbing. Patient has pain in right ankle. NEURO: Alert and oriented x 3. No acute neurological deficits. Speech is normal and follows commands. SKIN: Dry and warm Triage Information Reviewed: Yes Vital Signs On Initial Exam: Initial Vitals Temp Pulse Resp BP Pulse Ox 97.5 F 106 18 152/88 98 03/30/18 12:04 03/30/18 12:04 03/30/18 12:04 03/30/18 12:04 03/30/18 12:04 Vital Signs Reviewed: Yes Diagnostics - Vital Signs Vital Signs Temp Pulse Resp BP Pulse Ox 03/30/18 12:04 97.5 F 106 18 152/88 98 - Laboratory Result Diagrams: 03/30/18 15:58 03/30/18 15:58 Lab Statement: Any lab studies that have been ordered have been reviewed, and results considered in the medical decision making process. - Radiology FOOT XR Radiology Interpretation Completed By: Radiologist Summary of Radiographic Findings: Degenerative changes of the tarsometatarsal joint. Fusion of the calcaneus, talus and tibia. ED PHYSICIAN REVIEWED THIS RADIOLOGY REPORT. ANKLE XR Radiology Interpretation Completed By: Radiologist Summary of Radiographic Findings: Fusion of the calcaneus, talus and tibia similar in appearance to that seen on March 24, 2018. ED PHYSICIAN REVIEWED THIS RADIOLOGY REPORT. LOWER EXTREMITY XR Radiology Interpretation Completed By: Radiologist Summary of Radiographic Findings: Fracture through the proximal shaft of the tibia. ED PHYSICIAN REVIEWED THIS RADIOLOGY REPORT. - EKG 1649 Cardiac Rate: Tachycardia - 109 BPM EKG Rhythm: Sinus Tachycardia - 109 BPM EKG Comparison: No Significant Change - 12/14/2017 Summary of EKG Findings: NO ST ELEVATIONS Lower Extremity Course/Dx - Course Assessment/Plan: A 82 y/o male accompanied by family presents to the ED c/o right ankle pain. According to the patient, in early november he fell and didn't know at the time that he broke his ankle. He ended up walking around for 2.5 weeks with the broken ankle and when one time when he was getting out of the shower, his right ankle hurt "like hell". He stated that Dr. Madison "tied everything together" and in the same week he saw Dr. Witt and Dr. Ann who operated on him. He stated that he saw Dr. Witt last week who stated that the XR looked fine and his injury healed up. He stated that recently has been walking and it was fine, however, on he was taking his to her appointment when he noticed a bit of pain, but not much. He stated that last night as he was getting into bed, he put some weight on it and heard something pop in his leg. He assumed he busted something in his leg. He stated that he is not in any pain, however, if he moves or puts weight on it, it is painful to the point where he screams. 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 Ankle x ray IMPRESSION: Fusion of the calcaneus, talus and tibia similar in appearance to that seen on March 24, 2018. Foot x ray IMPRESSION: Degenerative changes of the tarsometatarsal joint. Lower extremity x-ray impression: Fracture through the proximal shaft of the tibia. We are awaiting for the consult from Dr. Witt the orthopedic surgeon for this patient. Dr. Witt came and assessed the patient and he recommends for the patient to be admitted to his services for further workup and management. The patient is hemodynamically stable alert and oriented 3. - Diagnoses Differential Diagnosis/HQI/PQRI: Positive: Contusion, Dislocation, Fracture ( Closed), Sprain, Strain Provider Diagnoses: Tibia fracture - Physician Notifications Discussed Care Of Patient With: Rafy Witt Time Discussed With Above Provider: 15:15 Instructed by Provider To: Other - ACCEPTS PATIENT FOR ADMISSION. Discharge - Sign-Out/Discharge Documenting (check all that apply): Patient Departure - ADMIT, Sign-Out Shayan - AFSANEH Signing out patient TO: Rafy Witt Receiving patient FROM: Tye Garcia Patient Received Moderate/Deep Sedation with Procedure: No - Discharge Plan Condition: Stable Disposition: ADMITTED TO [facility] - Billing Disposition and Condition Condition: STABLE Disposition: Admitted to [facility] - Attestation Statements Document Initiated by Daisy: Yes Documenting Scribe: Deepak Bales Provider For Whom Daisy is Documenting (Include Credential): Tye Garcia MD Scribe Attestation: Deepak Camarillo, scribed for Tye Garcia MD on 03/31/18 at 2137. Scribe Documentation Reviewed: Yes Provider Attestation: The documentation as recorded by the Deepak crockett accurately reflects the service I personally performed and the decisions made by me, Tye Garcia MD Status of Scribe Document: Viewed
[2018-03-30] MEDS ORDERED: Ondansetron TAB* 4 MG PO PRN (15:39)
[2018-03-30] MEDS ORDERED: diPHENhydraMINE IV* 50 MG/ML 1 ml VIAL (BENADRYL) IV PRN (15:39)
[2018-03-30] MEDS ORDERED: Acetaminophen TAB* 325 MG PO PRN (15:39)
[2018-03-30] MEDS ORDERED: Polyethylene Glycol 3350* 17 GM PACKET PO PRN (15:46)
[2018-03-30] MEDS ORDERED: Senna TAB PO PRN (15:46)
[2018-03-30] MEDS ORDERED: Magnesium Hydroxide LIQ* 30 ML UDC PO PRN (15:46)
[2018-03-30] MEDS ORDERED: Lactated Ringers 1000 ML Bag* 1,000 ML IV SCH (16:00)
[2018-03-30 16:44] LABS: BUN/Creatinine Ratio 13.5 (8-20); EGFR Non-African American 45.7 (>60); Potassium 4.3 mmol/L (3.5-5.0)
[2018-03-30 16:45] LABS: Albumin 4.1 g/dL (3.2-5.2); Albumin/Globulin Ratio 1.5 (1-3); Calcium 9.2 mg/dL (8.6-10.3); EGFR African American 55.3 (>60); Globulin 2.8 g/dL (2-4); Total Bilirubin 0.6 mg/dL (0.2-1.0); Total Protein 6.9 g/dL (6.4-8.9)
[2018-03-30] MEDS: traMADol TAB* 50 MG PO PRN ×2 (16:58→22:48)
--- NOTE | 2018-03-30 17:39 | CONS ---
ER CONSULTATION REPORT: DATE OF CONSULT: 03/30/18. HISTORY OF PRESENT ILLNESS: Carlos is an 82-year-old gentleman who has had significant neuropathic and peripheral vascular disease. He has had a left transtibial amputation probably 8 months ago, this has healed well. He is doing pretty well with his prosthetic and then more recently several months ago , he had a right pilon fracture, which was treated with a hindfoot nail. He has just been seen in my office about 10 days ago and was felt to have good healing of the tibiotalar fusion construct. Three days ago, Carlos was walking and began to have some dull aching in his right leg and this became quite severe yesterday and really was unable to bear weight. It is midshaft pain in the right tibia. He came into the emergency room today, unable to bear weight and with acute swelling. Carlos has medications, allergies, and medical history outlined in the chart. PHYSICAL EXAM: On examination today, he is not in any acute distress, but he does have significant pain when we move his right leg. He is sitting up in his wheelchair accompanied by his , Norris. The foot itself is nontender. He does have significant midfoot abduction and valgus. The ankle itself is also relatively nontender. At the bottom of the foot where we entered, the nail is also benign. However, he has tenderness and swelling at the right midshaft of the tibia directly where one of the previous external fixator pin sites was placed. DIAGNOSTIC STUDIES/LAB DATA: His radiographs today show the hindfoot nail to be intact. No significant change there or he sustained a transverse fracture in the mid third of the right tibia. This fracture is slightly angulated into valgus, but it is out to length, more or less transverse and not translated. PLAN/RECOMMENDATIONS: Carlos will be splinted today then admitted overnight. Tomorrow, we will attempt a closed reduction of the tibia. This could be casted probably in the short term with the above knee cast and then transitioning to a PTV as healing progresses. An alternate would be a long plating, but given the stable configuration of the fracture, I think early weightbearing will be allowable. [id number]/[facility] #: [id number] ALBERTINA
[2018-03-30 17:59] LABS: ABS Basophils 0 10^3/ul (0-0.2); ABS Eosinophils 0 10^3/ul (0-0.6); ABS Lymphocytes 0.6 10^3/ul (1.0-4.8); ABS Monocytes 0.7 10^3/ul (0-0.8); ABS Neutrophils 7.2 10^3/ul (1.5-7.7); ABS Nucleated RBC 0 10^3/ul; Eosinophil % 0.2 %; Hematocrit 39 % (42-52); Hemoglobin 12.8 g/dl (14.0-18.0); Lymphocyte % 7.5 %; Mean Corpuscular HGB Conc 33 g/dl (31-36); Mean Corpuscular Hemoglobin 31 pg (27-31); Mean Corpuscular Volume 94 fL (80-94); Mean Platelet Volume 6.8 fL (7.4-10.4); Nucleated Red Blood Cells % 0.1; Platelet Count 296 10^3/ul (150-450); Red Blood Count 4.12 10^6/ul (4.00-5.40); Red Cell Distribution Width 14 % (10.5-15); White Blood Count 8.6 10^3/ul (3.5-10.8)
[2018-03-30] MEDS: Metoprolol Tartrate TAB* 50 mg PO SCH (19:40)
[2018-03-30] MEDS: Terazosin CAP* 5 MG PO SCH (19:40)
[2018-03-30] MEDS: Docusate CAP* 100 MG PO SCH (19:41)
--- NOTE | 2018-03-30 22:31 | CONS ---
[facility] MEDICINE CONSULTATION REPORT: DATE OF CONSULT: 03/30/18 PROVIDER: Sandra Browning NP ATTENDING PHYSICIAN: Dr. Witt. CONSULTING PHYSICIAN: Dr. Sujit Santana (dictated by Sandra Browning NP) REASON FOR CONSULT: Co-management of chronic medical conditions. HISTORY OF PRESENT ILLNESS: Mr. Wells is an 82-year-old male with a past medical history significant for diabetes, hypertension, GERD, history of prostate cancer with radiation, history of kidney stones, left BKA due to osteomyelitis, who presented to the emergency room with pain in his right lower leg. The patient reports that he initially broke his ankle back in November 2017. At that time, he had surgical repair of a tib-fib fracture last week. He saw Dr. Witt and was instructed he could start walking. He reports that last , it was painful. Yesterday, he does report that the pain became worse and he had a popping noise with increased pain, so he called Dr. Witt's office who referred him to the emergency room for further evaluation. For complete details, please refer to the H and P dictated by Dr. Witt. The patient will be admitted overnight for closed reduction of the tibia. PAST MEDICAL HISTORY: Significant for: 1. Diabetes. 2. Hypertension. 3. Left BKA. 4. GERD. 5. Hypertension. 6. Prostate cancer with radiation in 2006, in remission. 7. Kidney stones. 8. Cardiomyopathy with ejection fraction of 45%. PAST SURGICAL HISTORY: 1. Carpal tunnel repair. 2. Cataract surgery. 3. Left BKA. 4. Right ankle fracture repair in November 2017. HOME MEDICATIONS: 1. Vitamin C 1000 mg p.o. q. a.m. 2. Terazosin 5 mg p.o. at bedtime. 3. Multivitamin 1 tablet p.o. daily. 4. Metoprolol 50 mg p.o. b.i.d. 5. Glipizide 2.5 mg p.o. q.a.m. 6. Amlodipine 2.5 mg p.o. q.a.m. ALLERGIES: No known drug allergies. FAMILY HISTORY: The patient's mother at the age of 34 from a brain aneurysm, father with a history of lung cancer. SOCIAL HISTORY: The patient reports he quit smoking approximately 30 years ago. Prior to that, he was a heavy smoker. Does report a daily glass of wine with dinner. No illicit drug use. He is , he lives with his . Surrogate decision maker in the event he is unable to make his own decisions is his . Secondary decision maker is his daughter. He is a full code. REVIEW OF SYSTEMS: There have been no documented fevers. No unintended weight loss. No chest pain, edema, cough, hemoptysis, or shortness of breath. No nausea, vomiting, diarrhea, or abdominal pain. No gross hematuria or dysuria. No focal weakness or sensory loss. No dysphagia, arthralgias, myalgias, rashes , lesions, psychosis or anxiety. He denies any shortness of breath or fluid in his lungs. Denies any recent chest pain. Able to carry out daily activities without the development of chest pain. PHYSICAL EXAM: Vital Signs: Temperature 98.0, heart rate 88, respirations 18, O2 saturation 98% on room air, blood pressure 166/78. In general, Mr. Wells is sitting in a wheel chair, he does not appear to be in any acute distress. He is alert and oriented x3. HEENT: Head is atraumatic, normocephalic. Eyes: EOMs are intact. Sclerae anicteric and not pale. Oral mucosa appeared to be moist. Neck is supple. Lungs are clear to auscultation bilaterally. No wheezes, rales, or rhonchi. Cardiac: S1, S2. Regular rate and rhythm. Abdomen is soft and nontender. Bowel sounds are present x4. Extremities: He has a prosthetic left lower leg. He has a splint noted to his right lower leg. Toes are warm to touch. Cap refill is less than 2 seconds. Sensation is intact. Neurologic: He is awake, alert, oriented x3. Speech is clear. Thought process intact. No gross focal deficits. Skin is intact. DIAGNOSTIC STUDIES/LAB DATA: WBCs were 8.6, RBCs were 4.12, hemoglobin 12.8, hematocrit was 39, platelet count was 296. Sodium 139, potassium 4.3, chloride 106, carbon dioxide was 25, anion gap was 8, BUN was 20, creatinine 1.48 which is at the patient's baseline, glucose 134, calcium 9.2. Total bili 0.60. ASTs were 10, ALTs were 6, alkaline phosphatase was 84. He had an x-ray of his lower extremity, which showed a fracture through the proximal shaft of the tibia. He had a foot x-ray, radiologist's impression: Fusion of calcaneus, talus, and tibia. Degenerative changes of the tarsal- metatarsal joint. IMPRESSION AND PLAN: Mr. Wells is an 82-year-old gentleman with past medical history significant for diabetes; hypertension; cardiomyopathy with an ejection fraction of 45%; gastroesophageal reflux disease; history of prostate cancer, status post radiation and remission; and history of kidney stones, who presented with complaints of right ankle pain, found to have a tibia fracture. Hospital medicine was asked to consult due to his chronic medical conditions. Our recommendations are as follows: 1. Right tibia fracture. Management per Orthopedics. PT/OT per Orthopedics. 2. Diabetes. I would recommend holding his glipizide at this time. The patient's blood glucose on arrival was 134. The patient is refusing Accu Cheks at this time. We can resume his glipizide upon the patient's return home. 3. Hypertension. I would continue his amlodipine as previously prescribed. 4. Chronic kidney disease stage 3. We will continue to monitor and avoid nephrotoxic medications. 5. DVT prophylaxis. As per Orthopedics. 6. Code status. He is a full code. 7. Diet. I would recommend a consistent carb, heart healthy, low-sodium diet. TIME SPENT: Time spent on this consultation was 45 minutes, more than half that time was spent at the bedside reviewing the events thus far to his hospitalization, performing physical exam, and reviewing my plan of care. I have discussed this with my attending, Dr. Sujit Santana; he is in agreement with my plan. SANDRA BROWNING, SENIOR GRANT WRITER [id number]/[facility] #: [id number] ALBERTINA
[2018-03-31 01:59] LABS: Urine Appearance Cloudy; Urine Bilirubin Negative (Negative); Urine Blood Negative (Negative); Urine Color Yellow; Urine Glucose Negative (Negative); Urine Ketones Negative (Negative); Urine Nitrite Negative (Negative); Urine Protein Negative (Negative); Urine Urobilinogen Negative (Negative)
[2018-03-31] MEDS ORDERED: glipiZIDE TAB.XL* 2.5 MG PO SCH (09:00)
[2018-03-31] MEDS: amLODIPine TAB* 5 MG PO SCH (09:34)
[2018-03-31] MEDS: Metoprolol Tartrate TAB* 50 mg PO SCH ×2 (09:35→21:58)
[2018-03-31] MEDS: Docusate CAP* 100 MG PO SCH ×2 (09:36→21:58)
[2018-03-31] MEDS: Multivitamins/Minerals TAB PO SCH (09:36)
[2018-03-31] MEDS: Ascorbic Acid TAB* 500 MG PO SCH (09:36)
[2018-03-31] MEDS ORDERED: fentaNYL* 50 MCG/ML 2 ML VIAL (100 MCG VIAL) ONE (11:52)
[2018-03-31] MEDS ORDERED: Midazolam* 1 MG/ML 2 ML VIAL (2 MG) ONE (11:52)
[2018-03-31] MEDS ORDERED: Naloxone* 0.4 MG/ML 1 ML VIAL IV PRN (12:01)
[2018-03-31] MEDS ORDERED: fentaNYL* 50 MCG/ML 2 ML VIAL (100 MCG VIAL) IV PRN (12:01)
[2018-03-31] MEDS ORDERED: Ondansetron INJ* 2 MG/ML VIAL IV PRN (12:01)
[2018-03-31] MEDS ORDERED: HYDROcodone/ACETAMIN 5-325 MG* 1 TAB PO PRN (12:01)
[2018-03-31] MEDS ORDERED: oxyCODONE/Acetamin 5/325 MG* TAB PO PRN (12:01)
[2018-03-31] MEDS ORDERED: Chloroprocaine 2%* 20 ML VIAL ONE (13:22)
[2018-03-31] MEDS ORDERED: EPHEDrine (Pressors)* 50 MG/ML VIAL ONE (13:22)
--- NOTE | 2018-03-31 14:47 | OP ---
DATE OF OPERATION: 03/31/18 - ROOM #335 DATE OF : 39 SURGEON: Rafy Witt MD PRE-OP DIAGNOSIS: Right midshaft tibia fracture. POST-OP DIAGNOSIS: Right midshaft tibia fracture. OPERATIVE PROCEDURE: Closed reduction, casting. DESCRIPTION OF PROCEDURE: The patient was taken to the operating room where spinal anesthetic was performed. We then applied a toe to mid thigh long-leg cast with the knee flexed about 20 degrees, slight varus molding to the tibia fracture itself. The patient was then aroused from the sedation and transferred to the recovery room in good condition. [id number]/[facility] #: [id number] MTDD
--- NOTE | 2018-03-31 16:20 | PN ---
Subjective Date of Service: 03/31/18 Interval History: Pain control OK. Appetite good. No new c/o. Objective Active Medications: Acetaminophen (Tylenol Tab*) 650 mg PO Q6H PRN PRN Reason: PAIN OR TEMPERATURE Amlodipine Besylate (Norvasc Tab*) 2.5 mg PO QAM [facility] Last Admin: 03/31/18 09:34 Dose: Not Given Ascorbic Acid (Vitamin C Tab*) 1,000 mg PO QAM [facility] Last Admin: 03/31/18 09:36 Dose: Not Given Diphenhydramine HCl (Benadryl Iv*) 25 mg IV Q6H PRN PRN Reason: PRURITIS Docusate Sodium (Colace Cap*) 100 mg PO BID [facility] Last Admin: 03/31/18 09:36 Dose: Not Given Glipizide (Glucotrol Xl*) 2.5 mg PO DAILY [facility] Lactated Ringer's (Lactated Ringers 1000 Ml Bag*) 1,000 mls @ 75 mls/hr IV PER RATE [facility] Last Admin: 03/31/18 12:32 Dose: 75 mls/hr Magnesium Hydroxide (Milk Of Magnesia Liq*) 30 ml PO BID PRN PRN Reason: CONSTIPATION Metoprolol Tartrate (Lopressor Tab*) 50 mg PO BID [facility] Last Admin: 03/31/18 09:35 Dose: 50 mg Multivitamins/Minerals (Theragran/Minerals Tab*) 1 tab PO DAILY [facility] Last Admin: 03/31/18 09:36 Dose: Not Given Ondansetron HCl (Zofran Tab*) 4 mg PO Q6H PRN PRN Reason: NAUSEA Polyethylene Glycol/Electrolytes (Miralax*) 17 gm PO DAILY PRN PRN Reason: CONSTIPATION Senna (Senokot Tab*) 1 tab PO BEDTIME PRN PRN Reason: CONSTIPATION Terazosin HCl (Hytrin Cap*) 5 mg PO BEDTIME [facility] Last Admin: 03/30/18 19:40 Dose: 5 mg Tramadol HCl (Ultram*) 50 mg PO Q6H PRN PRN Reason: PAIN Last Admin: 03/30/18 22:48 Dose: 50 mg Vital Signs - 8 hr 03/31/18 03/31/18 03/31/18 11:29 13:36 13:37 Temperature 97.9 F 97.3 F Pulse Rate 66 62 63 Respiratory 17 12 Rate Blood Pressure 129/63 127/65 (mmHg) O2 Sat by Pulse 95 94 91 Oximetry 03/31/18 03/31/18 03/31/18 13:40 13:46 13:50 Temperature Pulse Rate 62 Respiratory Rate Blood Pressure 117/63 98/57 130/68 (mmHg) O2 Sat by Pulse 91 Oximetry 03/31/18 03/31/18 03/31/18 13:55 14:00 14:01 Temperature Pulse Rate 61 60 Respiratory Rate Blood Pressure 121/72 116/75 (mmHg) O2 Sat by Pulse 91 95 Oximetry 03/31/18 03/31/18 03/31/18 14:15 14:30 14:45 Temperature Pulse Rate 63 60 Respiratory Rate Blood Pressure 138/72 140/74 143/74 (mmHg) O2 Sat by Pulse 89 97 Oximetry 03/31/18 03/31/18 03/31/18 15:00 15:01 15:15 Temperature Pulse Rate 62 62 62 Respiratory Rate Blood Pressure 146/76 154/77 (mmHg) O2 Sat by Pulse 96 97 95 Oximetry 03/31/18 03/31/18 15:35 15:43 Temperature 97.4 F 97.4 F Pulse Rate 66 66 Respiratory 18 18 Rate Blood Pressure 139/63 139/63 (mmHg) O2 Sat by Pulse 97 97 Oximetry Oxygen Devices in Use Now: None Appearance: Alert, partly up in bed. Irritable but otherwise looks comfortable. Extremities: - - R leg in long cast Neurological: Alert and Oriented x 3, NL Sensation Result Diagrams: 03/30/18 15:58 03/30/18 15:58 Assess/Plan/Problems-Billing Assessment: - Patient Problems (1) Right tibial fracture Current Visit: Yes Status: Acute Code(s): S82.201A - UNSP FRACTURE OF SHAFT OF RIGHT TIBIA, INIT FOR CLOS FX SNOMED Code(s): 67681468 Comment: S/P closed reduction under anesthesia 03/31/18. Non WB for at least [address] Witt. (2) Diabetes Current Visit: No Status: Chronic Priority: Medium Code(s): E11.9 - TYPE 2 DIABETES MELLITUS WITHOUT COMPLICATIONS SNOMED Code(s): 88240187 Comment: Resume Glipizide XL 04/01/18. Daily FS glucose ordered, likely pt will refuse. (3) Cardiomyopathy Current Visit: No Status: Chronic Priority: Medium Code(s): I42.9 - CARDIOMYOPATHY, UNSPECIFIED SNOMED Code(s): 11901870 Comment: - EF 45% per EMR. (4) Hypertension Current Visit: No Status: Chronic Priority: Medium Code(s): I10 - ESSENTIAL (PRIMARY) HYPERTENSION SNOMED Code(s): 21042359 Comment: - BP well controlled - Continue metoprolol, amlodipine and terazosin
[2018-03-31] MEDS ORDERED: oxyCODONE TAB* 5 MG TAB PO PRN (18:10)
[2018-03-31] MEDS: Aspirin TAB* 325 MG PO SCH (19:06)
[2018-03-31] MEDS: Terazosin CAP* 5 MG PO SCH (21:58)
[2018-04-01] MEDS: Docusate CAP* 100 MG PO SCH ×2 (09:11→20:12)
[2018-04-01] MEDS: Ascorbic Acid TAB* 500 MG PO SCH (09:12)
[2018-04-01] MEDS: Multivitamins/Minerals TAB PO SCH (09:12)
[2018-04-01] MEDS: glipiZIDE TAB.XL* 2.5 MG PO SCH (09:12)
[2018-04-01] MEDS: Metoprolol Tartrate TAB* 50 mg PO SCH ×2 (09:12→17:43)
[2018-04-01] MEDS: amLODIPine TAB* 5 MG PO SCH (09:12)
--- NOTE | 2018-04-01 11:59 | PN ---
Progress Note - Progress Note Date of Service: 04/01/18 SOAP: Subjective: []Pt seen at bedside. He has no pain of his RLE. Denies CP, SOB, dizziness, nausea. Objective: []General: RLE: Long Leg Cast toe to mid thigh with the knee flexed about 20 degrees CDI. Sensation intact, capillary refill less than two seconds distally. Able to flex and extend MTPs. No erythema proximal or distal to dressing Assessment: []right midshaft tibia fracture pod 1 s/p closed reduction and casting by Dr Witt 03/31/18 Plan: []NWB RLE Participate with PT/OT, eval for safety at home PMRU referral in though patient adamantly refuses. Insists he will go home tomorrow at 13:00 whether he is discharged or whether he leaves AMA. Vital Signs Temp 98.6 F 04/01/18 07:54 Pulse 60 04/01/18 07:54 Resp 18 04/01/18 07:59 BP 133/74 04/01/18 07:54 Pulse Ox 97 04/01/18 07:59 Intake & Output 03/31/18 04/01/18 04/01/18 18:59 06:59 18:59 Intake Total 500 240 Output Total 200 250 200 Balance 300 -10 -200 Intake: IV Fluids 500 LR 500 Oral 240 Output: Urine 200 250 200 Other: Estimated Stool Amount Large Laboratory Last Values WBC 8.6 10^3/ul (3.5-10.8) 03/30/18 15:58 RBC 4.12 10^6/ul (4.00-5.40) 03/30/18 15:58 Hgb 12.8 g/dl (14.0-18.0) L 03/30/18 15:58 Hct 39 % (42-52) L 03/30/18 15:58 MCV 94 fL (80-94) 03/30/18 15:58 MCH 31 pg (27-31) 03/30/18 15:58 MCHC 33 g/dl (31-36) 03/30/18 15:58 RDW 14 % (10.5-15) 03/30/18 15:58 Plt Count 296 10^3/ul (150-450) 03/30/18 15:58 MPV 6.8 fL (7.4-10.4) L 03/30/18 15:58 Neut % (Auto) 83.6 % 03/30/18 15:58 Lymph % (Auto) 7.5 % 03/30/18 15:58 [place] % (Auto) 8.6 % 03/30/18 15:58 Eos % (Auto) 0.2 % 03/30/18 15:58 Baso % (Auto) 0.1 % 03/30/18 15:58 Absolute Neuts (auto) 7.2 10^3/ul (1.5-7.7) 03/30/18 15:58 Absolute Lymphs (auto) 0.6 10^3/ul (1.0-4.8) L 03/30/18 15:58 Absolute Monos (auto) 0.7 10^3/ul (0-0.8) 03/30/18 15:58 Absolute Eos (auto) 0 10^3/ul (0-0.6) 03/30/18 15:58 Absolute Basos (auto) 0 10^3/ul (0-0.2) 03/30/18 15:58 Absolute Nucleated RBC 0 10^3/ul 03/30/18 15:58 Nucleated RBC % 0.1 03/30/18 15:58 Sodium 139 mmol/L (135-145) 03/30/18 15:58 Potassium 4.3 mmol/L (3.5-5.0) 03/30/18 15:58 Chloride 106 mmol/L (101-111) 03/30/18 15:58 Carbon Dioxide 25 mmol/L (22-32) 03/30/18 15:58 Anion Gap 8 mmol/L (2-11) 03/30/18 15:58 BUN 20 mg/dL (6-24) 03/30/18 15:58 Creatinine 1.48 mg/dL (0.67-1.17) H 03/30/18 15:58 Est GFR ( Amer) 55.3 (>60) 03/30/18 15:58 Est GFR (Non-Af Amer) 45.7 (>60) 03/30/18 15:58 BUN/Creatinine Ratio 13.5 (8-20) 03/30/18 15:58 Glucose 134 mg/dL (70-100) H 03/30/18 15:58 Calcium 9.2 mg/dL (8.6-10.3) 03/30/18 15:58 Total Bilirubin 0.60 mg/dL (0.2-1.0) 03/30/18 15:58 AST 10 U/L (13-39) L 03/30/18 15:58 ALT 6 U/L (7-52) L 03/30/18 15:58 Alkaline Phosphatase 84 U/L (34-104) 03/30/18 15:58 Total Protein 6.9 g/dL (6.4-8.9) 03/30/18 15:58 Albumin 4.1 g/dL (3.2-5.2) 03/30/18 15:58 Globulin 2.8 g/dL (2-4) 03/30/18 15:58 Albumin/Globulin Ratio 1.5 (1-3) 03/30/18 15:58 Urine Color Yellow 03/31/18 01:30 Urine Appearance Cloudy 03/31/18 01:30 Urine pH 5.0 (5-9) 03/31/18 01:30 Ur Specific [place] 1.020 (1.010-1.030) 03/31/18 01:30 Urine Protein Negative (Negative) 03/31/18 01:30 Urine Ketones Negative (Negative) 03/31/18 01:30 Urine Blood Negative (Negative) 03/31/18 01:30 Urine Nitrate Negative (Negative) 03/31/18 01:30 Urine Bilirubin Negative (Negative) 03/31/18 01:30 Urine Urobilinogen Negative (Negative) 03/31/18 01:30 Ur Leukocyte Esterase Negative (Negative) 03/31/18 01:30 Urine Glucose Negative (Negative) 03/31/18 01:30 Urine Ascorbic Acid * (Negative) A 03/31/18 01:30
[2018-04-01] MEDS: Aspirin TAB* 325 MG PO SCH (17:43)
[2018-04-01] MEDS ORDERED: Terazosin CAP* 5 MG PO SCH (18:00)
--- NOTE | 2018-04-02 08:15 | CONS ---
CONSULTATION REPORT: DATE OF CONSULTATION: 04/02/18 HISTORY OF PRESENT ILLNESS: Carlos has been admitted 3 days ago and casted 2 days ago for a right tibia fracture. He is in a long-leg cast which, although slightly uncomfortable up in the thigh area, is being well tolerated and his pain level is 0 in the fracture itself. Carlos has the resources to arrange home healthcare and will be leaving early this afternoon to go back to his home in [place]. He will be on an aspirin a day, occasional pain medication, and I have expressed to him the need to be in the long-leg cast for anywhere from 2 to 3 weeks and then we can cut it down to a short-leg cast, so that he can move his knee. He knows he is to call our office within the next week or so if there are significant issues with the cast, but otherwise we expect to see him in 2 to 3 weeks in the office. [id number]/CPS #: [id number] ALBERTINA
[2018-04-02] MEDS: Ascorbic Acid TAB* 500 MG PO SCH (09:16)
[2018-04-02] MEDS: Metoprolol Tartrate TAB* 50 mg PO SCH (09:17)
[2018-04-02] MEDS: amLODIPine TAB* 5 MG PO SCH (09:17)
[2018-04-02] MEDS: Docusate CAP* 100 MG PO SCH (09:17)
[2018-04-02] MEDS: Multivitamins/Minerals TAB PO SCH (09:17)
[2018-04-02] MEDS: glipiZIDE TAB.XL* 2.5 MG PO SCH (09:17)
[2018-04-02 12:09] VITALS: BP 134/64
--- NOTE | 2018-04-02 12:17 | PN ---
Progress Note - Progress Note Date of Service: 04/02/18 SOAP: Subjective: []Pt seen and examined at bedside. He feels well and desires DC home. Denies RLE Pain. Denies CP, SOB, dizziness, nausea. Seen by Dr Witt as well this morning, okay with pt DC to home. Objective: []General: Appears well, NAD RLE: Long Leg Cast toe to mid thigh with the knee flexed about 20 degrees is CDI. Sensation intact, capillary refill less than two seconds distally. Able to flex and extend MTPs. No erythema proximal or distal to dressing Assessment: []right midshaft tibia fracture pod 2 s/p closed reduction and casting by Dr Witt 03/31/18 Plan: []NWB RLE Continue PT/OT, has home health scheduler service Fu Dr Witt in 2 weeks Temp Pulse Resp BP Pulse Ox 99.2 F 59 16 134/64 95 04/01/18 19:45 04/02/18 11:19 04/02/18 11:19 04/02/18 11:19 04/02/18 11:19
--- NOTE | 2018-04-02 15:39 | DS ---
AMENDED REPORT NOW INCLUDES COSIGNER DESIGNATION DISCHARGE SUMMARY: DATE OF ADMISSION: 03/30/18 DATE OF DISCHARGE: 04/02/18 PROVIDER: Dr. Rafy Witt.* (DICTATED BY ERWIN OSEGUERA) PRE-OP DIAGNOSIS: Right midshaft tibia fracture. OPERATIVE PROCEDURE: Closed reduction and casting. HISTORY: Mr. Wells is an 82-year-old male. 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 Several months ago, he had a right pilon fracture which was treated with a hindfoot nail, which was healing well with good tibiotalar fusion on 03/27/18. The patient began to have some dull aching pain in his right leg, which became quite severe on . He was unable to bear weight, so he came to the emergency room. Radiographs revealed his hindfoot nail to be intact with a new transverse fracture of the mid third of the right tibia. HOSPITAL COURSE: The patient was admitted to [facility] on . He was splinted and admitted overnight. He was taken to the operating room for a closed reduction and casting of the right leg. A long leg toe to mid thigh cast was placed with the knee flexed to about 20 degrees. He was then admitted for work with PT for 2 days. During his stay, his cast was clean, dry , and intact. Sensation intact distally. Capillary refill less than 2 seconds distally. He was able to flex and extend his MTPs. No erythema proximal or distal to dressing. The patient progressed relatively well with PT. He refused PMRU. He refused [facility]. He refused rehab. He was discharged to home on 04/02/18 with a hired aide service and his is healthcare for him. DISCHARGE MEDICATIONS: 1. Metoprolol 50 mg p.o. b.i.d. 2. Terazosin 5 mg p.o. at bedtime. 3. Amlodipine 2.5 mg p.o. q.a.m. 4. Ascorbic acid 1000 mg p.o. q.a.m. 5. Multivitamin with minerals 1 tab p.o. daily. 6. Glipizide 2.5 mg p.o. a.m. 7. Acetaminophen 650 mg p.o. q.6 hours p.r.n. 8. Aspirin 325 daily. 9. Docusate 100 mg p.o. b.i.d. 10. Tramadol 50 mg p.o. q.6 hours p.r.n., max daily dose of 8. DISCHARGE PLAN: The patient is discharged to home. He is going to be nonweightbearing on his right lower extremity. Keep the cast clean, dry and intact. For pain, tramadol 50 mg 1 to 2 tabs every 6 hours as needed for pain, max 8 tabs per day, aspirin 325 one tablet daily as long as the right leg is imobilized. Follow up with Dr. Witt in 2 weeks, call for an appointment. He was discharged to home. ERWIN GRUBER [id number]/CPS #: [id number]
== END 2018-04-02 12:40 | disposition home health service (06) | DRG 563 ==
LOC: ED 11:58 → SSU 15:39
PROVIDERS: ADMIT Orthopaedic Surgery; ATTEND Orthopaedic Surgery
PROC: 0QSGXZZ Reposition Right Tibia, External Approach (ICD-10-PCS; principal; 2018-03-30)
PROC: 2W3LX1Z Immobilization of Right Lower Extremity using Splint (ICD-10-PCS; 2018-03-30)
DX: S82.101A Unspecified fracture of upper end of right tibia, initial encounter for closed fracture (principal); I42.9 Cardiomyopathy, unspecified; E11.21 Type 2 diabetes mellitus with diabetic nephropathy; E11.51 Type 2 diabetes mellitus with diabetic peripheral angiopathy without gangrene; K21.9 Gastro-esophageal reflux disease without esophagitis; I12.9 Hypertensive chronic kidney disease with stage 1 through stage 4 chronic kidney disease, or unspecified chronic kidney disease; N18.3 Chronic kidney disease, stage 3 (moderate); E11.22 Type 2 diabetes mellitus with diabetic chronic kidney disease; W19.XXXA Unspecified fall, initial encounter; Y93.01 Activity, walking, marching and hiking; E11.40 Type 2 diabetes mellitus with diabetic neuropathy, unspecified; Z89.512 Acquired absence of left leg below knee; Z85.46 Personal history of malignant neoplasm of prostate; Z92.3 Personal history of irradiation; Z87.442 Personal history of urinary calculi; Z80.1 Family history of malignant neoplasm of trachea, bronchus and lung; Z87.891 Personal history of nicotine dependence; Y92.9 Unspecified place or not applicable; Z98.42 Cataract extraction status, left eye; Z98.41 Cataract extraction status, right eye; Z79.82 Long term (current) use of aspirin; Z79.84 Long term (current) use of oral hypoglycemic drugs
CPT/HCPCS: 36415; 76000; 80053; 81003; 85025; 93005; 99284; A9270-GY; G8978-GP-CK; G8979-GP-CI; G8987-GO-CK; G8988-GO-CI; J2250; J2400; J3010

== ENCOUNTER 2021-06-12 09:37 | Inpatient (IN) ==
[2021-06-12] MEDS ORDERED: NS 0.9% 1000 ml BAG 1,000 ML IV ONE ×2 (09:45→11:01)
[2021-06-12 10:15] LABS: ABS Lymphocytes 0.2 10^3/ul (1.0-4.8); ABS Monocytes 0.6 10^3/ul (0-0.8); ABS Neutrophils 9.1 10^3/ul (1.5-7.7); Hematocrit 35 % (42-52); Hemoglobin 11.9 g/dL (14.0-18.0); Lymphocyte % 2.5 %; Mean Corpuscular HGB Conc 34 g/dL (31-36); Mean Corpuscular Hemoglobin 33 pg (27-31); Mean Corpuscular Volume 98 fL (80-94); Mean Platelet Volume 7.7 fL (7.4-10.4); Platelet Count 226 10^3/uL (150-450); Red Blood Count 3.58 10^6 /uL (4.18-5.48); Red Cell Distribution Width 14 % (10-15); White Blood Count 9.9 10^3/uL (3.5-10.8)
[2021-06-12 11:01] LABS: Albumin 3.7 g/dL (3.2-5.2); Albumin/Globulin Ratio 1.3 (1-3); C Reactive Protein 118.86 mg/L (<8.01); Calcium 9.3 mg/dL (8.6-10.3); Globulin 2.8 g/dL (2-4); Total Bilirubin 0.9 mg/dL (0.2-1.0); Total Protein 6.5 g/dL (6.4-8.9); eGFR CKD-EPI 22.5 (>60)
[2021-06-12 11:06] LABS: Potassium 5.5 mmol/L (3.5-5.0)
[2021-06-12 11:41] LABS: High Sensitivity Troponin 1 Hr 7361 pg/mL (<20)
[2021-06-12] MEDS ORDERED: Dextrose 50% Syringe 50 ml 25 GM/50 ML SYRINGE IV PUSH PRN (13:22)
[2021-06-12] MEDS ORDERED: Furosemide 40 mg/4 ml IV VIAL IV SLOW PU ONE (13:34)
[2021-06-12 13:43] LABS: HDL Cholesterol 39.9 mg/dL; Magnesium 2.5 mg/dL (1.9-2.7)
[2021-06-12] MEDS ORDERED: SODIUM ZIRCONIUM CYCLOSILICATE 5 GM PACKET PO ONE (13:50)
[2021-06-12 14:33] LABS: Ferritin 450.3 ng/mL (24-336)
[2021-06-12] MEDS: Enoxaparin 30 MG/0.3 ML SYR SUBCUT SCH (15:09)
[2021-06-12] MEDS: Mupirocin 2% OINT TUBE TOPICAL SCH (23:30)
[2021-06-13 06:55] LABS: ABS Lymphocytes 0.5 10^3/ul (1.0-4.8); ABS Monocytes 0.7 10^3/ul (0-0.8); Eosinophil % 0.1 %; Hematocrit 31 % (42-52); Hemoglobin 10.6 g/dL (14.0-18.0); Lymphocyte % 5.2 %; Mean Corpuscular HGB Conc 34 g/dL (31-36); Mean Corpuscular Hemoglobin 33 pg (27-31); Mean Corpuscular Volume 97 fL (80-94); Mean Platelet Volume 8.1 fL (7.4-10.4); Platelet Count 216 10^3/uL (150-450); Red Blood Count 3.17 10^6 /uL (4.18-5.48); Red Cell Distribution Width 13 % (10-15); White Blood Count 9.3 10^3/uL (3.5-10.8)
[2021-06-13 07:18] LABS: Albumin 3.3 g/dL (3.2-5.2); Albumin/Globulin Ratio 1.3 (1-3); Calcium 8.3 mg/dL (8.6-10.3); Globulin 2.5 g/dL (2-4); Potassium 4.7 mmol/L (3.5-5.0); Total Bilirubin 0.6 mg/dL (0.2-1.0); Total Protein 5.8 g/dL (6.4-8.9)
[2021-06-13] MEDS ORDERED: Perflutren Lipid Microsphere 3 ML VIAL ONE (07:57)
[2021-06-13] MEDS ORDERED: Furosemide 40 mg/4 ml IV VIAL IV SCH (09:00)
[2021-06-13] MEDS: Multivitamins/Minerals TAB PO SCH (09:30)
[2021-06-13] MEDS: Mupirocin 2% OINT TUBE TOPICAL SCH ×2 (09:31→20:56)
[2021-06-13] MEDS: Enoxaparin 30 MG/0.3 ML SYR SUBCUT SCH (14:05)
[2021-06-13 15:42] LABS: Anion Gap 9 mmol/L (2-11); Blood Urea Nitrogen 57 mg/dL (6-24); CO2 Carbon Dioxide 25 mmol/L (22-32); Calcium 8.2 mg/dL (8.6-10.3); Chloride 102 mmol/L (101-111); Glucose 268 mg/dL (70-100); Potassium 4.5 mmol/L (3.5-5.0); Sodium 136 mmol/L (135-145); eGFR CKD-EPI 23.2 (>60)
[2021-06-13 16:46] LABS: Folate > 20.00 ng/mL (5.90-24.80)
[2021-06-13 16:48] LABS: Vitamin B12 352 pg/mL (180-914)
[2021-06-13] MEDS: Bumetanide IV 0.25 MG/ML 4 ml VIAL (1 mg) SLOW PUSH SCH ×2 (17:13→20:58)
[2021-06-13] MEDS: cefTRIAXone 1 gm/50 mL D5W 1 GM/50 ML BAG IV SCH (17:33)
[2021-06-13] MEDS: DOXYcycline 100 MG in NS 0.9% 250 ml 250 ML IVPB SCH (18:46)
[2021-06-13 19:13] LABS: Urine Appearance Clear; Urine Bilirubin Negative (Negative); Urine Blood Negative (Negative); Urine Color Yellow; Urine Glucose Negative (Negative); Urine Ketones Negative (Negative); Urine Nitrite Negative (Negative); Urine Protein Negative (Negative); Urine Specific Gravity 1.011 (1.002-1.030); Urine Urobilinogen Negative (Negative)
[2021-06-13] MEDS: Aspirin EC 81 mg TAB.EC (enteric coated) PO SCH (20:57)
[2021-06-14] MEDS: DOXYcycline 100 MG in NS 0.9% 250 ml 250 ML IVPB SCH ×2 (03:35→16:32)
[2021-06-14 06:42] LABS: ABS Eosinophils 0.1 10^3/ul (0-0.6); ABS Lymphocytes 0.6 10^3/ul (1.0-4.8); ABS Monocytes 0.6 10^3/ul (0-0.8); ABS Neutrophils 5.8 10^3/ul (1.5-7.7); Eosinophil % 0.9 %; Hematocrit 32 % (42-52); Lymphocyte % 7.8 %; Mean Corpuscular HGB Conc 34 g/dL (31-36); Mean Corpuscular Hemoglobin 34 pg (27-31); Mean Corpuscular Volume 99 fL (80-94); Platelet Count 209 10^3/uL (150-450); Red Blood Count 3.24 10^6 /uL (4.18-5.48); Red Cell Distribution Width 14 % (10-15); White Blood Count 7.1 10^3/uL (3.5-10.8)
[2021-06-14 06:59] LABS: Calcium 8.3 mg/dL (8.6-10.3); Potassium 3.9 mmol/L (3.5-5.0); eGFR CKD-EPI 26.4 (>60)
[2021-06-14] MEDS ORDERED: Regadenoson 0.4 MG/5 ML SYRINGE ONE (07:45)
[2021-06-14 09:23] LABS: Magnesium 2.1 mg/dL (1.9-2.7)
[2021-06-14] MEDS ORDERED: Potassium Chlor 20 meq TAB.ER PO ONE (11:07)
[2021-06-14] MEDS: Aspirin EC 81 mg TAB.EC (enteric coated) PO SCH (12:51)
[2021-06-14] MEDS: Multivitamins/Minerals TAB PO SCH (12:52)
[2021-06-14] MEDS: Mupirocin 2% OINT TUBE TOPICAL SCH ×2 (12:52→20:38)
[2021-06-14] MEDS: Enoxaparin 30 MG/0.3 ML SYR SUBCUT SCH (12:53)
[2021-06-14] MEDS: Bumetanide IV 0.25 MG/ML 4 ml VIAL (1 mg) SLOW PUSH SCH (12:55)
[2021-06-14] MEDS: cefTRIAXone 1 gm/50 mL D5W 1 GM/50 ML BAG IV SCH (16:32)
[2021-06-15] MEDS: DOXYcycline 100 MG in NS 0.9% 250 ml 250 ML IVPB SCH ×2 (03:36→16:59)
[2021-06-15 06:24] LABS: ABS Eosinophils 0.2 10^3/ul (0-0.6); ABS Lymphocytes 0.5 10^3/ul (1.0-4.8); ABS Monocytes 0.6 10^3/ul (0-0.8); ABS Neutrophils 5.6 10^3/ul (1.5-7.7); Eosinophil % 2.2 %; Hematocrit 31 % (42-52); Hemoglobin 10.7 g/dL (14.0-18.0); Lymphocyte % 7.8 %; Mean Corpuscular HGB Conc 35 g/dL (31-36); Mean Corpuscular Hemoglobin 34 pg (27-31); Mean Corpuscular Volume 97 fL (80-94); Mean Platelet Volume 7.7 fL (7.4-10.4); Platelet Count 228 10^3/uL (150-450); Red Blood Count 3.18 10^6 /uL (4.18-5.48); Red Cell Distribution Width 13 % (10-15)
[2021-06-15 06:49] LABS: Calcium 8.2 mg/dL (8.6-10.3); Magnesium 2.1 mg/dL (1.9-2.7); eGFR CKD-EPI 27.7 (>60)
[2021-06-15] MEDS: Multivitamins/Minerals TAB PO SCH (09:22)
[2021-06-15] MEDS: Aspirin EC 81 mg TAB.EC (enteric coated) PO SCH (09:22)
[2021-06-15 12:13] LABS: Ferritin 278.9 ng/mL (24-336)
[2021-06-15] MEDS: Mupirocin 2% OINT TUBE TOPICAL SCH ×2 (15:07→20:11)
[2021-06-15] MEDS: Enoxaparin 30 MG/0.3 ML SYR SUBCUT SCH (15:08)
[2021-06-15] MEDS: cefTRIAXone 1 gm/50 mL D5W 1 GM/50 ML BAG IV SCH (16:06)
[2021-06-16] MEDS: DOXYcycline 100 MG in NS 0.9% 250 ml 250 ML IVPB SCH ×2 (04:07→17:28)
[2021-06-16] MEDS ORDERED: NS 0.9% 500 ml BAG 500 ML IV ONE (04:22)
[2021-06-16 07:38] LABS: Calcium 8.5 mg/dL (8.6-10.3); Magnesium 1.9 mg/dL (1.9-2.7); Potassium 3.8 mmol/L (3.5-5.0); eGFR CKD-EPI 30.5 (>60)
[2021-06-16] MEDS: Aspirin EC 81 mg TAB.EC (enteric coated) PO SCH (10:13)
[2021-06-16] MEDS: Multivitamins/Minerals TAB PO SCH (10:13)
[2021-06-16] MEDS: Mupirocin 2% OINT TUBE TOPICAL SCH ×2 (10:14→20:17)
[2021-06-16] MEDS: Enoxaparin 30 MG/0.3 ML SYR SUBCUT SCH (16:15)
[2021-06-16] MEDS: cefTRIAXone 1 GM Q24H (Pharmacy Admix) IVPB SCH (16:25)
[2021-06-17] MEDS: DOXYcycline 100 MG in NS 0.9% 250 ml 250 ML IVPB SCH ×2 (03:53→18:03)
[2021-06-17 07:23] LABS: Calcium 8.3 mg/dL (8.6-10.3); Magnesium 1.9 mg/dL (1.9-2.7); Potassium 3.8 mmol/L (3.5-5.0); eGFR CKD-EPI 30.3 (>60)
[2021-06-17] MEDS: Mupirocin 2% OINT TUBE TOPICAL SCH ×2 (08:02→20:45)
[2021-06-17] MEDS: Multivitamins/Minerals TAB PO SCH (09:09)
[2021-06-17] MEDS: Aspirin EC 81 mg TAB.EC (enteric coated) PO SCH (09:09)
[2021-06-17] MEDS: cefTRIAXone 1 GM Q24H (Pharmacy Admix) IVPB SCH (16:44)
[2021-06-17] MEDS: Enoxaparin 30 MG/0.3 ML SYR SUBCUT SCH (17:22)
[2021-06-18] MEDS ORDERED: NS 0.9% 1000 ml BAG 1,000 ML IV SCH (03:00)
[2021-06-18] MEDS: DOXYcycline 100 MG in NS 0.9% 250 ml 250 ML IVPB SCH ×2 (04:19→16:56)
[2021-06-18 05:46] LABS: ABS Eosinophils 0.2 10^3/ul (0-0.6); ABS Lymphocytes 0.6 10^3/ul (1.0-4.8); ABS Monocytes 0.6 10^3/ul (0-0.8); ABS Neutrophils 5.4 10^3/ul (1.5-7.7); Eosinophil % 3.4 %; Hematocrit 31 % (42-52); Hemoglobin 10.7 g/dL (14.0-18.0); Lymphocyte % 8.4 %; Mean Corpuscular HGB Conc 34 g/dL (31-36); Mean Corpuscular Hemoglobin 33 pg (27-31); Mean Corpuscular Volume 97 fL (80-94); Mean Platelet Volume 7.4 fL (7.4-10.4); Platelet Count 251 10^3/uL (150-450); Red Blood Count 3.21 10^6 /uL (4.18-5.48); Red Cell Distribution Width 14 % (10-15); White Blood Count 6.9 10^3/uL (3.5-10.8)
[2021-06-18 06:14] LABS: Calcium 8.3 mg/dL (8.6-10.3); Magnesium 1.9 mg/dL (1.9-2.7); Potassium 3.9 mmol/L (3.5-5.0); eGFR CKD-EPI 29.3 (>60)
[2021-06-18] MEDS ORDERED: diPHENhydraMINE 25 mg TAB PO PRN (08:00)
[2021-06-18] MEDS: Multivitamins/Minerals TAB PO SCH (08:38)
[2021-06-18] MEDS: Aspirin EC 81 mg TAB.EC (enteric coated) PO SCH (08:38)
[2021-06-18] MEDS: Mupirocin 2% OINT TUBE TOPICAL SCH ×2 (08:40→20:24)
[2021-06-18] MEDS ORDERED: VERAPAMIL 2.5 MG/ML 2 ML VIAL ** 5 mg/2 ml ONE ×2 (10:40→11:47)
[2021-06-18] MEDS ORDERED: Lidocaine 1% MPF 5 ML VIAL ONE (10:40)
[2021-06-18] MEDS ORDERED: Heparin 1,000 UNIT/ML 10 ml (10,000 UNITS) CATHLAB/DIALYSIS ONE ×3 (10:40→11:52)
[2021-06-18] MEDS ORDERED: nitroGLYCERIN DRIP 25,000 MCG/250 ML BTL ONE (10:40)
[2021-06-18] MEDS ORDERED: Heparin 2 UNITS/ML 1000 mls 2,000 ML IV ONE (10:40)
[2021-06-18] MEDS ORDERED: Midazolam 5 mg/5 ml VIAL 1 mg/ml 5 ml VIAL (5 mg) ONE (10:40)
[2021-06-18] MEDS ORDERED: Iodixanol 320 (CONTRAST) 100 ML SDV ONE ×2 (10:40→11:40)
[2021-06-18] MEDS ORDERED: fentaNYL 100 mcg/2 ml 50 MCG/ML VIAL ONE (10:40)
[2021-06-18] MEDS: cefTRIAXone 1 GM Q24H (Pharmacy Admix) IVPB SCH (16:55)
[2021-06-18 17:12] LABS: Free T4 1.5 ng/dL (0.9 - 1.7)
[2021-06-19 07:24] LABS: Calcium 8.5 mg/dL (8.6-10.3); Magnesium 1.9 mg/dL (1.9-2.7); Potassium 3.8 mmol/L (3.5-5.0); eGFR CKD-EPI 31.2 (>60)
[2021-06-19] MEDS ORDERED: Potassium Chlor 20 meq TAB.ER PO ONE (08:11)
[2021-06-19 08:19] VITALS: BP 106/67
[2021-06-19] MEDS: Aspirin EC 81 mg TAB.EC (enteric coated) PO SCH (08:55)
[2021-06-19] MEDS: Multivitamins/Minerals TAB PO SCH (08:56)
[2021-06-19] MEDS: Mupirocin 2% OINT TUBE TOPICAL SCH (09:00)
[2021-06-19 14:24] LABS: Thyroperoxidase Antibody <0.3 IU/mL (<9.0)
== END 2021-06-19 15:40 | disposition home or self-care (01) | DRG 871 ==
LOC: ED 09:37 → SUATTDRO 13:11 → EDHOLD 13:11 → MEDTELE 19:56
PROVIDERS: ADMIT Internal Medicine; ATTEND Internal Medicine

== ENCOUNTER 2023-08-18 12:39 | Observation (INO) ==
[2023-08-18 13:57] LABS: Hematocrit 35.3 % (38-53); Hemoglobin 12.1 g/dL (13.2-16.3); Mean Corpuscular Hemoglobin 33.9 pg (27-33); Mean Corpuscular Hgb Conc 34.2 g/dL (31-36); Mean Corpuscular Volume 99.2 fL (80-97); Platelet Count 254 10^3/uL (150-450); Red Blood Count 3.55 10^6/uL (4.06-5.63); Red Cell Distribution Width 14.4 % (12-17); White Blood Count 9.2 10^3/uL (3.6-10.2)
[2023-08-18 14:03] LABS: Activated Partial Thrombo Time 29.5 seconds (26.0-38.0); INR 1.01 (0.83-1.13)
[2023-08-18 14:24] LABS: Creatinine, Serum 2.02 mg/dL (0.67-1.17); Potassium 4.5 mmol/L (3.5-5.0); eGFR CKD-EPI 31.5 (>60)
[2023-08-18] MEDS: Morphine 10 MG/ML VIAL (1 ml) IM ONE (15:14)
[2023-08-18] MEDS ORDERED: Morphine 2 MG/ML SYRINGE IV PRN ×2 (16:55→16:56)
[2023-08-18] MEDS ORDERED: Dextrose 50% Syringe 50 ml 25 GM/50 ML SYRINGE IV PUSH PRN (17:06)
[2023-08-18] MEDS ORDERED: Propofol 10 MG/ML 20 ML BTL ONE (17:17)
[2023-08-18] MEDS ORDERED: fentaNYL 100 mcg/2 ml 50 MCG/ML VIAL ONE (17:17)
[2023-08-18] MEDS ORDERED: Lidocaine 2% PF 5 ML VIAL ONE (17:17)
[2023-08-18] MEDS ORDERED: Phenylephrine 40 mcg/mL 10mL (400mcg) SYRINGE ONE (18:16)
[2023-08-18] MEDS ORDERED: Rocuronium 50 mg VIAL 10 mg/ml 5 ml VIAL (50 mg) ONE (18:23)
[2023-08-18] MEDS ORDERED: Ondansetron 4 mg VIAL 2 MG/ML 2 ml VIAL ONE (18:30)
[2023-08-18] MEDS ORDERED: Dexamethasone IV 4 MG/ML VIAL 1 ml VIAL ONE (18:30)
[2023-08-18] MEDS ORDERED: Phenylephrine IV 10 MG/ML 1 ml VIAL ONE (18:56)
[2023-08-18] MEDS: cefTRIAXone 1 gm/50 mL D5W 1 GM/50 ML BAG IV SCH ×2 (22:33→23:14)
[2023-08-18 23:20] LABS: High Sensitivity Troponin 1 Hr 26 pg/mL (<20)
[2023-08-19 06:18] LABS: ABS Lymphocytes 0.3 10^3/uL (1.0-4.8); ABS Monocytes 0.3 10^3/uL (0.0-1.1); ABS Neutrophils 9.3 10^3/uL (1.5-7.6); Hematocrit 31.3 % (38-53); Hemoglobin 10.8 g/dL (13.2-16.3); Lymphocyte % 2.8 %; Mean Corpuscular Hemoglobin 34.2 pg (27-33); Mean Corpuscular Hgb Conc 34.6 g/dL (31-36); Mean Platelet Volume 7.2 fL (7.5-11.2); Platelet Count 234 10^3/uL (150-450); Red Blood Count 3.16 10^6/uL (4.06-5.63); Red Cell Distribution Width 14.1 % (12-17); White Blood Count 9.8 10^3/uL (3.6-10.2)
[2023-08-19 06:34] LABS: Anion Gap 10 mmol/L (2-16); Blood Urea Nitrogen 29 mg/dL (6-24); CO2 Carbon Dioxide 22 mmol/L (22-32); Calcium 8.2 mg/dL (8.6-10.3); Chloride 105 mmol/L (101-111); Glucose 155 mg/dL (70-100); Magnesium 2.1 mg/dL (1.9-2.7); Sodium 137 mmol/L (135-145); eGFR CKD-EPI 36.2 (>60)
[2023-08-19] MEDS: NF:DAPAGLIFLOZIN 10 MG TAB (NF) PO SCH (09:00)
[2023-08-19 13:25] LABS: % Iron Saturation 10 % (15-55); .Transferrin 147 mg/dL (203-362); Iron < 20 ug/dL (50-212); Total Iron Binding Capacity 206 mcg/dL (250-450); Unsaturated Iron Binding 186 ug/dL
[2023-08-19 13:46] LABS: Ferritin 72.1 ng/mL (24-336)
[2023-08-20 01:32] LABS: Hematocrit 26.9 % (38-53); Hemoglobin 9.1 g/dL (13.2-16.3)
[2023-08-20] MEDS: Lactated Ringers 1000 ml BAG 1,000 ML IV SCH (09:42)
[2023-08-20 10:21] LABS: ABS Eosinophils 0.1 10^3/uL (0.0-0.5); ABS Lymphocytes 0.9 10^3/uL (1.0-4.8); ABS Monocytes 0.7 10^3/uL (0.0-1.1); ABS Neutrophils 9.1 10^3/uL (1.5-7.6); Eosinophil % 0.8 %; Hemoglobin 10.3 g/dL (13.2-16.3); Mean Corpuscular Hgb Conc 34.2 g/dL (31-36); Mean Corpuscular Volume 99.3 fL (80-97); Platelet Count 245 10^3/uL (150-450); Red Blood Count 3.02 10^6/uL (4.06-5.63); Red Cell Distribution Width 14.3 % (12-17); White Blood Count 10.8 10^3/uL (3.6-10.2)
[2023-08-20 11:20] LABS: Calcium 8.2 mg/dL (8.6-10.3); Creatinine, Serum 1.8 mg/dL (0.67-1.17); Magnesium 2.1 mg/dL (1.9-2.7); Potassium 4.3 mmol/L (3.5-5.0); eGFR CKD-EPI 36.2 (>60)
[2023-08-20 14:05] VITALS: BP 113/58
== END 2023-08-20 15:55 | disposition home or self-care (01) ==
LOC: EDHOLD 12:39 → ED 12:39 → SSU 17:32 → AA 17:52 → SSU 21:44
PROVIDERS: ADMIT Student in an Organized Health Care Education/Training Program; ATTEND Student in an Organized Health Care Education/Training Program